=== PATIENT | male | born 1985 | race Caucasian/White ===

== ENCOUNTER 2023-09-18 21:12 | Emergency (ER) | payer OTHER, SELFPAY ==
[2023-09-18] VITALS (7 sets, daily range): BP systolic 112–177; BP diastolic 66–108; PULSE 71–79; RESP 18–30; TEMP 36.4; O2SAT 94–98; BMI 38.1
--- NOTE | 2023-09-18 21:20 | DI.RAD.S_ITS ---
PROCEDURE: XR CHEST 2V INDICATIONS: chest pain TECHNIQUE: 2 views of the chest were acquired. COMPARISON: None. FINDINGS: Surgical changes and devices: None. Lungs and pleura: Lungs are clear. No pleural effusions or pneumothorax. Low lung volumes. Mediastinum: Mediastinal contours are normal. Heart size is normal. Bones and chest wall: No suspicious bony abnormalities. Soft tissues appear unremarkable. IMPRESSION: No acute cardiopulmonary abnormality is seen. Dictated by: Bernarod Nichole M.D. on 09/18/2023 at 21:58 Approved by: Bernardo Nichole M.D. on 09/18/2023 at 21:59
--- NOTE | 2023-09-18 21:31 | EKG_ITS ---
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
[2023-09-18 21:42] LABS: Add Manual Diff / Slide Review NO; Basophils Absolute Auto 100 /uL (0-100); Basophils Percent Auto 1.2 % (0-2); Eosinophils Absolute Auto 100 /uL (0-450); Hematocrit 42.2 % (41-53); Hemoglobin 14.6 g/dL (13.5-17.5); Lymphocytes Absolute Auto 3400 /uL (1100-4500); Lymphocytes Percent Auto 34.5 % (25-40); Mean Corpuscular HGB Conc 34.7 % (30-36); Mean Corpuscular Hemoglobin 29.2 PG (26-34); Monocytes Absolute Auto 500 /uL (0-900); Monocytes Percent Auto 5.2 % (3-14); Neutrophils Absolute Auto 5700 /uL (1500-7000); Neutrophils Percent Auto 58.1 % (50-75); Platelet Count 255 X10^3/uL (150-400); Red Blood Cell Count 5.02 X10^6/uL (4.5-5.9); Red Cell Distribution Width 13.9 % (11.6-14.8); White Blood Cell Count 9.8 X10^3/uL (4.5-11.0)
[2023-09-18 21:46] LABS: INR 0.9 (0.9-1.3); Prothrombin Time 10.8 SECONDS (9.4-12.5)
[2023-09-18 21:49] LABS: PTT Partial Thromboplastin Tim 38 SECONDS (25.1-36.5)
[2023-09-18 21:52] LABS: HEMOLYSIS 20 (0-50); Potassium 3.9 mmol/L (3.4-5.1)
[2023-09-18 21:53] LABS: Alanine Aminotransferase 36 IU/L (<50); Albumin 4.8 g/dL (3.5-5.0); Albumin Globulin Ratio 1.5 (1.0-2.8); Alkaline Phosphatase 79 U/L (38-126); Aspartate Aminotransferase 30 IU/L (17-59); BUN Creatinine Ratio 9.7 (6-22); Bilirubin Total 0.5 mg/dL (0.2-1.3); Blood Urea Nitrogen 9 mg/dL (9-20); Calcium 9.2 mg/dL (8.4-10.2); Carbon Dioxide 23 mmol/L (22-32); Chloride 110 mmol/L (98-107); Creatine Kinase 117 U/L (55-170); Estimated Glomerular Filt Rate > 60 mL/min (>60); Globulin 3.3 g/dL (1.7-4.1); Glucose 97 mg/dL (70-100); Lipase 113 U/L (23-300); Magnesium 2.1 mg/dL (1.6-2.3); Sodium 144 mmol/L (137-145); Total Protein 8.1 g/dL (6.3-8.2)
[2023-09-18 22:04] LABS: NT-proBNP (BNP-Adult 18+) 22 pg/mL (<125); Troponin I < 0.012 ng/mL (0.01-0.034)
--- NOTE | 2023-09-18 23:45 | EKG_ITS ---
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
[2023-09-19] VITALS (18 sets, daily range): BP systolic 109–140; BP diastolic 57–88; PULSE 60–96; RESP 16–35; TEMP 36.8; O2SAT 92–98
[2023-09-19 00:04] LABS: Troponin I < 0.012 ng/mL (0.01-0.034)
--- NOTE | 2023-09-19 02:49 | ED.CHESTPAIN ---
HPI - Chest Pain General Chief Complaint: Chest Pain Stated Complaint: Chest Pain, Palpitations Time Seen by Provider: 09/19/23 02:47 Source: patient, RN notes reviewed and old records reviewed Mode of arrival: Family Vehicle Limitations: no limitations Limitations: no limitations History of Present Illness HPI narrative: 38-year-old male history of GERD with gastritis on upper and lower endoscopy, patient presents with complaint of chest pain that started at noon today has been persistent continuous nothing seems to make it better or worse. He describes it as substernal without any radiation, no shortness of breath unless he gets some bumps or palpitations in his chest. Patient denies any fevers, chills or cold cough or congestion. No nausea or vomiting, no syncope or lightheadedness, patient has not had any swelling in extremities. States had some dark bowel movements, no changes to urination. Patient is on pantoprazole since his upper GI and lower GI scope in April. No other daily prescription medications. He has had prior spinal surgery and cholecystectomy. Allergy to bees but no known drug allergies no tobacco, rare alcohol, no recreational drugs. Mom had rhythm issues and a cardiac stent he is unsure of the age of onset states statin siblings none reported. He has a son who has a bicuspid aorta. Primary care is through the [facility]. Patient notes he has had some palpitations on and off and chest pain on and off in the past and has been set up with a ZIO patch which he just mailed back today. Patient does note he has had travel to [place] in July and on September 07. He does fly for work intermittently sometimes long distance. Related Data Previous Rx's Medication Instructions Recorded hydroxyzine pamoate 25 mg capsule 25 - 50 mg (1 - 2 x 25 mg) PO Q4HP 05/10/17 PRN #60 caps oxycodone 5 mg tablet 5 - 10 mg (1 - 2 x 5 mg) PO Q3HP 05/10/17 PRN #90 tabs Allergies Allergy/AdvReac Type Severity Reaction Status Date / Time bee venom protein (honey bee) Allergy Unknown Unverified 05/17/17 12:39 [BEE VENOM PROTEIN (HONEY BEE)] Review of Systems Review of Systems ROS Unobtainable: All systems reviewed & are unremarkable except as noted in HPI and below Exam Narrative Exam Narrative: GENERAL: Alert and oriented x three, obese male in mild distress HEENT: Head normocephalic, atraumatic, EOMI, pupils reactive, face symmetric, moist mucous membranes NECK: Supple, full range of motion CARDIOVASCULAR: Regular rate and rhythm without murmurs, rubs or gallops. No JVD. No edema bilateral lower extremities. RESPIRATORY: Breath sounds equal bilaterally, no wheezes rales or rhonchi. No tachypnea or accessory muscle use. ABDOMEN: Soft, nontender. Normoactive bowel sounds all 4 quadrants. No guarding or rebound, rigidity, no mass : No CVA tenderness EXTREMITIES: Normal range of motion, no clubbing or edema. Neurovascularly intact NEUROLOGICAL: Cranial nerves II through XII grossly intact. Moving all extremities SKIN: Warm, dry, no petechiae, no rashes or lesions. Initial Vital Signs Initial Vital Signs: Vital Signs Temperature 97.6 F 09/18/23 21:20 Pulse Rate 79 09/18/23 21:20 Respiratory Rate 18 09/18/23 21:20 Blood Pressure 177/108 H 09/18/23 21:20 Pulse Oximetry 98 09/18/23 21:20 Oxygen Delivery Method Room Air 09/18/23 21:20 Scores HEART Score Heart Score history: Moderately Suspicious Heart Score EKG: Non-Specific repolarization disturbance Heart Score Age: < 45 years old Heart Score risk factors: 1-2 risk factors Heart Score troponin: < or = to normal limit Heart Score Total: 3 PERC Score Age greater than or equal to 50 years: No Heart rate greater than or equal to 100 bpm: No Room Air O2 Sat less than 95%: No Unilateral leg swelling: No Recent trauma or surgery: No Hemoptysis: No Prior PE or DVT: No Hormone Use: No Total PERC Score: 0 Course Orders Ordered: ED Orders 09/18/23 21:20 XR chest 2V Stat EKG-12 Lead Stat 09/18/23 21:28 Complete Blood Count AUTO DIFF Stat Comprehensive Metabolic Panel Stat Lipase Stat Magnesium Stat NT-proBNP (BNP-Adult 18+) Stat PTT Partial Thromboplastin Khanh Stat Prothrombin Time INR Stat Troponin & CK Cardiac Panel Stat 09/18/23 23:30 Trop I [Troponin I] Stat 09/18/23 23:36 EKG-12 Lead Stat 09/19/23 03:08 CT angio chest PE protocol Stat Discontinued Medications Aspirin (Aspirin 81 Mg Chew Tab) 324 mg PO NOW ONE Stop: 09/18/23 21:21 Vital Signs Vital signs: Vital Signs - 8 hr 09/18/23 22:48 09/18/23 22:48 09/18/23 23:00 Temperature Pulse Rate 79 Respiratory Rate Blood Pressure 136/74 131/82 Pulse Oximetry 98 97 Oxygen Delivery Method Room Air 09/18/23 23:00 09/18/23 23:20 09/18/23 23:20 Temperature Pulse Rate 78 75 Respiratory Rate 30 H 29 H Blood Pressure 132/78 127/82 Pulse Oximetry 96 96 Oxygen Delivery Method Room Air 09/18/23 23:30 09/18/23 23:32 09/18/23 23:32 Temperature Pulse Rate 72 71 Respiratory Rate 19 28 H Blood Pressure 129/84 Pulse Oximetry 95 96 Oxygen Delivery Method 09/18/23 23:40 09/18/23 23:40 09/19/23 00:00 Temperature Pulse Rate 73 Respiratory Rate 27 H Blood Pressure 112/66 137/88 Pulse Oximetry 94 Oxygen Delivery Method 09/19/23 00:00 09/19/23 00:20 09/19/23 00:20 Temperature Pulse Rate 83 92 H Respiratory Rate 35 H 26 H Blood Pressure 140/83 Pulse Oximetry 92 96 Oxygen Delivery Method 09/19/23 00:30 09/19/23 00:40 09/19/23 00:40 Temperature Pulse Rate 78 77 Respiratory Rate 27 H 25 H Blood Pressure 127/81 Pulse Oximetry 96 94 Oxygen Delivery Method 09/19/23 01:00 09/19/23 01:00 09/19/23 01:20 Temperature Pulse Rate 73 Respiratory Rate 23 Blood Pressure 120/71 109/70 Pulse Oximetry 94 Oxygen Delivery Method 09/19/23 01:20 09/19/23 01:30 09/19/23 01:40 Temperature Pulse Rate 73 96 H 72 Respiratory Rate 26 H 33 H 25 H Blood Pressure Pulse Oximetry 94 95 94 Oxygen Delivery Method 09/19/23 01:40 09/19/23 02:00 09/19/23 02:00 Temperature Pulse Rate 68 Respiratory Rate 23 Blood Pressure 112/70 112/74 Pulse Oximetry 95 Oxygen Delivery Method 09/19/23 02:20 09/19/23 02:20 09/19/23 02:30 Temperature Pulse Rate 77 77 Respiratory Rate 26 H 26 H Blood Pressure 109/62 Pulse Oximetry 92 94 Oxygen Delivery Method 09/19/23 02:40 09/19/23 02:40 09/19/23 03:00 Temperature Pulse Rate 74 77 Respiratory Rate 26 H 24 Blood Pressure 110/57 L Pulse Oximetry 96 97 Oxygen Delivery Method 09/19/23 03:00 09/19/23 03:20 09/19/23 03:20 Temperature Pulse Rate 71 Respiratory Rate 27 H Blood Pressure 115/82 120/80 Pulse Oximetry 94 Oxygen Delivery Method 09/19/23 03:30 09/19/23 04:00 09/19/23 04:30 Temperature Pulse Rate 60 62 Respiratory Rate 22 17 Blood Pressure 120/80 Pulse Oximetry 95 94 94 Oxygen Delivery Method 09/19/23 04:45 Temperature 98.2 F Pulse Rate 85 Respiratory Rate 16 Blood Pressure 135/78 Pulse Oximetry 98 Oxygen Delivery Method Room Air MDM - Chest Pain Lab Data 09/18/23 21:28 09/18/23 21:28 Labs: Lab Results 09/18/23 09/18/23 Range/Units 21:28 23:30 WBC 9.8 (4.5-11.0) X10^3/uL RBC 5.02 (4.5-5.9) X10^6/uL Hgb 14.6 (13.5-17.5) g/dL Hct 42.2 (41-53) % MCV 84.0 (80-100) fL MCH 29.2 (26-34) PG MCHC 34.7 (30-36) % RDW 13.9 (11.6-14.8) % Plt Count 255 (150-400) X10^3/uL Neut % (Auto) 58.1 (50-75) % Lymph % (Auto) 34.5 (25-40) % Collin % (Auto) 5.2 (3-14) % Eos % (Auto) 1.0 L (2-4) % Baso % (Auto) 1.2 (0-2) % Neut # (Auto) 5700 (5379-2221) /uL Lymph # (Auto) 3400 (8720-2858) /uL Collin # (Auto) 500 (0-900) /uL Eos # (Auto) 100 (0-450) /uL Baso # (Auto) 100 (0-100) /uL PT 10.8 (9.4-12.5) SECONDS INR 0.9 (0.9-1.3) APTT 38 H (25.1-36.5) SECONDS Sodium 144 (137-145) mmol/L Potassium 3.9 (3.4-5.1) mmol/L Chloride 110 H (98-107) mmol/L Carbon Dioxide 23 (22-32) mmol/L BUN 9 (9-20) mg/dL Creatinine 0.93 (0.66-1.25) mg/dL Estimated GFR > 60 (>60) mL/min BUN/Creatinine Ratio 9.7 (6-22) Glucose 97 (70-100) mg/dL Calcium 9.2 (8.4-10.2) mg/dL Magnesium 2.1 (1.6-2.3) mg/dL Total Bilirubin 0.5 (0.2-1.3) mg/dL AST 30 (17-59) IU/L ALT 36 (<50) IU/L Alkaline Phosphatase 79 (38-126) U/L Total Creatine Kinase 117 (55-170) U/L Troponin I < 0.012 < 0.012 (0.01-0.034) ng/mL NT-Pro-B Natriuret Pep 22 (<125) pg/mL Total Protein 8.1 (6.3-8.2) g/dL Albumin 4.8 (3.5-5.0) g/dL Globulin 3.3 (1.7-4.1) g/dL Albumin/Globulin Ratio 1.5 (1.0-2.8) Lipase 113 (23-300) U/L Imaging Data Chest x-ray: Radiologist's Impression: Bebeto Givens??38??M??1985 ? Allergy/Adv: bee venom protein (honey bee) (More??) Close Chest X-Ray (Signed) Bernardo Nichole - 09/18/23 Launch?[address] [address] XRay Report Signed Patient: Bebeto Givens MR#: [id number] : 1985 Acct:[id number] Age/Sex: 38 / M Date of Service: 09/18/23 Loc: ED Accession Number: [id number] Procedure: XR chest 2V Ordering Provider: Paulina Nelson D.O. PROCEDURE: XR CHEST 2V INDICATIONS: chest pain TECHNIQUE: 2 views of the chest were acquired. COMPARISON: None. FINDINGS: Surgical changes and devices: None. Lungs and pleura: Lungs are clear. No pleural effusions or pneumothorax. Low lung volumes. Mediastinum: Mediastinal contours are normal. Heart size is normal. Bones and chest wall: No suspicious bony abnormalities. Soft tissues appear unremarkable. IMPRESSION: No acute cardiopulmonary abnormality is seen. Dictated by: Bernardo Nichole M.D. on 09/18/2023 at 21:58 Approved by: Bernardo Nichole M.D. on 09/18/2023 at 21:59 ECG Data Attestation: I personally reviewed and interpreted this ECG as follows: Prior ECG tracings: not available for review Interpretation: Sinus rhythm incomplete right bundle, rate of 79 NC 146 QRS of 106 QTC of 447, no acute ST elevation or depression noted. No priors for comparison EKG shows sinus rhythm incomplete right bundle rate of 70 NC 148 QRS of 108 frequency, acute ST changes or dynamic changes noted. MDM Narrative Medical decision making narrative: 38-year-old male, obese, history of gastritis on pantoprazole, patient has had palpitations on and off for at least several weeks. He does have some history of long distance travel. Initial cardiac workup is negative chest x-ray shows no acute changes incomplete right bundle he notes that at his doctor's visit in July they told him that his heart rate was in the 120s but he was asymptomatic at that time. He does not recall if they told him he would any arrhythmias but told him on his EKG his heart maybe enlarged. Patient has a ZIO patch which just completed and mailed back yesterday. Based on patient's long distance travel discussed D-dimer but he does have some risk factors based on his BMI and travel. After discussion we will obtain CT angio PE protocol. White count of 9.8 hemoglobin of 14.6 platelets of 225, INR 0.9, sodium is 144 potassium 3.9 chloride 110 CO2 is 23 BUN 9 creatinine 0.93, glucose of 97, calcium 9.2 Mag 2.1 bilirubin point, AST of 30 ALT of 36, alk-phos 79 total CK 117 troponin is less than 0.21 with a repeat troponin of less than 0.012. Lipase is 113. Chest x-ray shows no acute change. EKG shows incomplete right bundle, sinus rhythm no acute ST changes no priors for comparison. CT angio PE, subungual timing contrast bolus to evaluate for pulmonary embolus no central segmental pulmonary embolus aortic dissection or aneurysm. No pericardial pleural effusion. Central airways are widely patent. Lung windows demonstrate dependent atelectasis in within the lingula, no nodular infiltrate. Calcified splenic granuloma. Multilevel spondylotic changes of thoracic spine. Discharge Plan Departure Patient Disposition: Home Clinical Impression: Chest pain, Palpitations Activity Restrictions/Additional Instructions: Please follow up with your physician for recheck regarding your ZIO patch results. It is possible you are having cardiac arrhythmias but none were captured today. Please return for recurrent or persistent symptoms, new chest pain or shortness of breath, lightheadedness or passing out, new swelling of your extremities, diaphoresis or sweatiness, persistent nausea or vomiting or other new or concerning changes. Prescriptions: No Action oxycodone 5 MG tablet 5 - 10 mg PO Q3HP PRNQty: 90 0RF hydroxyzine pamoate 25 MG capsule 25 - 50 mg PO Q4HP PRNQty: 60 0RF Stand Alone Forms: Patient Portal/API
--- NOTE | 2023-09-19 03:08 | DI.CT.S_ITS ---
PROCEDURE: CT ANGIO CHEST PE PROTOCOL INDICATIONS: CHEST PAIN TECHNIQUE: After the administration of intravenous contrast, 2 mm thick sections acquired from the pulmonary apices to the posterior costophrenic angles. 3-dimensional maximum intensity projection (MIP) coronal and sagittal reformats were then acquired through the thorax. For radiation dose reduction, the following was used: automated exposure control, adjustment of mA and/or kV according to patient size. COMPARISON: [facility], CR, XR CHEST 2V, 09/18/2023, 21:33. FINDINGS: Image quality: Diagnostic. Pulmonary arteries: Pulmonary arteries are normal in size, and demonstrate no intraluminal filling defects to suggest central pulmonary embolism. Lower Neck: No enlarged lymph nodes. Thyroid: No thyroid nodules which require sonographic follow up, per consensus guidelines. Axillae: No enlarged lymph nodes. Chest Wall: Unremarkable. Bones: Unremarkable. Lungs and Pleura: No pneumothorax or pleural effusions. No consolidation or suspicious nodules. Heart: Heart size is normal. No pericardial effusion. Thoracic Vessels: No aortic aneurysm. Mediastinum and Silvana: No enlarged lymph nodes. Esophagus: No wall thickening. No hiatal hernia. Upper Abdomen: Visualized upper abdomen solid organs and bowel loops appear normal. IMPRESSION: No pulmonary embolus. No acute cardiopulmonary process. Comment: Preliminary interpretation provided by [facility]. On final interpretation, contrast bolus is felt to be adequate for excluding pulmonary emboli. The Dictated by: Castro Ambriz M.D. on 09/19/2023 at 9:04 Approved by: Castro Ambriz M.D. on 09/19/2023 at 9:08
== END 2023-09-19 04:45 | disposition home or self-care (01) ==
PROVIDERS: Emergency Provider Emergency Medicine
DX: R07.9 Chest pain, unspecified (principal); R00.2 Palpitations; E66.9 Obesity, unspecified; Z68.38 Body mass index [BMI] 38.0-38.9, adult
CPT/HCPCS: 36415; 71046; 71275; 80053; 82550; 83690; 83735; 83880; 84484; 85025; 85610; 85730; 93005; 99283; 99284; Q9967

== ENCOUNTER 2023-11-26 18:19 | Inpatient (IN) | payer OTHER, SELFPAY ==
[2023-11-26] VITALS (10 sets, daily range): BP systolic 119–154; BP diastolic 79–92; PULSE 71–93; RESP 17–20; TEMP 36.6–37.4; O2SAT 94–98; BMI 38.7
--- NOTE | 2023-11-26 18:32 | ED_ITS ---
HPI - General Adult General Chief complaint: Abdominal Pain Stated complaint: abd pain, hot flashes, hx of diverticulitis Time Seen by Provider: 11/26/23 18:26 Source: patient Mode of arrival: Ambulatory Limitations: no limitations History of Present Illness HPI narrative: Patient is a 38-year-old male. Is currently on Cipro for prostatitis. He also has a history of diverticulitis. Has had his gallbladder removed. Is here for evaluation approximately 48 hours of generalized abdominal discomfort. No vomiting. Has felt feverish at home. States that he feels like he needs to have a bowel movement but is unable to do so. No urinary symptoms. He states this feels different than his prior history of diverticulitis. States the pain is generalized abdomen. Related Data Home Medications Medication Instructions Recorded Confirmed ciprofloxacin HCl 500 mg tablet 500 mg PO BID 11/26/23 11/26/23 flurbiprofen 100 mg tablet 100 mg PO BID 11/26/23 11/26/23 pantoprazole 40 mg tablet,delayed 40 mg PO DAILY 11/26/23 11/26/23 release Allergies Allergy/AdvReac Type Severity Reaction Status Date / Time bee venom protein (honey bee) Allergy Unknown Verified 11/26/23 18:37 [BEE VENOM PROTEIN (HONEY BEE)] Review of Systems Review of Systems ROS Unobtainable: All systems reviewed & are unremarkable except as noted in HPI and below Patient History Social History Smoking Status: Never smoker Exam Initial Vital Signs Initial Vital Signs: Vital Signs Pulse Rate 92 H 11/26/23 18:24 Blood Pressure 142/86 H 11/26/23 18:24 Pulse Oximetry 97 11/26/23 18:24 Const General: cooperative, comfortable and No ill appearing [facility] Head: normal to inspection and normocephalic Resp Effort & Inspection: normal respiratory effort Auscultation: clear to auscultation bilaterally Cardio Rate: regular rate Rhythm: regular rhythm GI Inspection: normal to inspection and non-distended Palpation: soft, No firm, No guarding, No rigid and tender (Diffusely tender) Skin General: no rashes or lesions noted Neuro General: patient alert, patient awake and moves all extremities Extrem General: capillary refill normal Course Orders Ordered: ED Orders 11/26/23 18:28 Complete Blood Count AUTO DIFF Stat Comprehensive Metabolic Panel Stat Lactate (Lactic Acid) Stat Lipase Stat 11/26/23 18:33 CT abdomen pelvis w con Stat 11/26/23 19:31 Consult to General Surgery Stat 11/26/23 19:42 Blood Culture Stat Sodium Chloride (Normal Saline 0.9%) 1,000 mls @ 125 mls/hr IV CONT LUIZ Last Admin: 11/26/23 19:40 Dose: 125 mls/hr Documented By: MAX Metronidazole (Flagyl) 500 mg in 100 mls @ 100 mls/hr IV NOW ONE Stop: 11/26/23 20:23 Discontinued Medications Piperacillin Sod/Tazobactam (Sod 4.5 gm/ Sodium Chloride) 100 mls @ 200 mls/hr IV NOW ONE Stop: 11/26/23 19:25 Last Admin: 11/26/23 19:41 Dose: 200 mls/hr Documented By: MAX Vital Signs Vital signs: Vital Signs - 8 hr 11/26/23 18:24 11/26/23 18:24 11/26/23 18:30 Temperature Pulse Rate 92 H 91 H Respiratory Rate Blood Pressure 142/86 H Pulse Oximetry 97 98 Oxygen Delivery Method 11/26/23 18:31 11/26/23 19:00 11/26/23 19:30 Temperature 99.4 F Pulse Rate 88 79 93 H Respiratory Rate 17 Blood Pressure 142/84 H Pulse Oximetry 98 96 94 Oxygen Delivery Method Room Air 11/26/23 19:31 11/26/23 19:31 Temperature Pulse Rate 87 Respiratory Rate Blood Pressure 154/92 H Pulse Oximetry 97 Oxygen Delivery Method Medical Decision Making Medical Records Medical records reviewed: Yes I reviewed the patient's medical records. Lab Data Lab results reviewed: Yes I reviewed the patient's lab results. 11/26/23 18:28 11/26/23 18:28 Labs: Lab Results 11/26/23 Range/Units 18:28 WBC 13.9 H (4.5-11.0) X10^3/uL RBC 5.08 (4.5-5.9) X10^6/uL Hgb 14.4 (13.5-17.5) g/dL Hct 42.1 (41-53) % MCV 82.9 (80-100) fL MCH 28.3 (26-34) PG MCHC 34.1 (30-36) % RDW 13.9 (11.6-14.8) % Plt Count 267 (150-400) X10^3/uL Neut % (Auto) 72.1 (50-75) % Lymph % (Auto) 22.5 L (25-40) % [place] % (Auto) 4.6 (3-14) % Eos % (Auto) 0.4 L (2-4) % Baso % (Auto) 0.4 (0-2) % Neut # (Auto) 31465 H (9693-5406) /uL Lymph # (Auto) 3100 (1430-1500) /uL [place] # (Auto) 600 (0-900) /uL Eos # (Auto) 100 (0-450) /uL Baso # (Auto) 100 (0-100) /uL Sodium 140 (137-145) mmol/L Potassium 4.1 (3.4-5.1) mmol/L Chloride 105 (98-107) mmol/L Carbon Dioxide 23 (22-32) mmol/L BUN 9 (9-20) mg/dL Creatinine 1.08 (0.66-1.25) mg/dL Estimated GFR > 60 (>60) mL/min BUN/Creatinine Ratio 8.3 (6-22) Glucose 108 H (70-100) mg/dL Lactate 1.1 (0.7-2.1) mmol/L Calcium 9.2 (8.4-10.2) mg/dL Total Bilirubin 1.0 (0.2-1.3) mg/dL AST 28 (17-59) IU/L ALT 32 (<50) IU/L Alkaline Phosphatase 76 (38-126) U/L Total Protein 8.4 H (6.3-8.2) g/dL Albumin 4.6 (3.5-5.0) g/dL Globulin 3.8 (1.7-4.1) g/dL Albumin/Globulin Ratio 1.2 (1.0-2.8) Lipase 50 (23-300) U/L Imaging Data CT scan - abdomen/pelvis: Radiologist's Impression: PROCEDURE: CT ABDOMEN PELVIS W CON INDICATIONS: Generalized abdominal pain TECHNIQUE: After the administration of intravenous contrast, axial sections acquired from the lung bases to the pubic symphysis. Coronal and sagittal reformats were performed. For radiation dose reduction, the following was used: automated exposure control, adjustment of mA and/or kV according to patient size. COMPARISON: None. FINDINGS: Image quality: Diagnostic. Lower Chest: No significant findings. ABDOMEN: Liver: No solid mass. Gallbladder: The appendix is not visualized and presumably surgically absent. Biliary ducts: No biliary dilation. Pancreas: No ductal dilation. No peripancreatic inflammation. Spleen: Size is within normal limits. Adrenal Glands: No adrenal nodules. Kidneys and Ureters: No hydronephrosis. No solid mass. No complex renal cystic lesion which requires follow up. Stomach and Bowel: Colonic diverticulosis. Acute diverticulitis involving the proximal sigmoid colon. There are numerous locules of extraluminal free air as well as free air scattered throughout the abdomen. Moderate inflammatory changes noted over the mesenteric side of the proximal sigmoid colon, a short distance cephalad to epicenter of diverticular inflammation. There is adjacent inflammatory changes of a loop of nondilated small bowel. No evidence for organized fluid collection. No evidence for small bowel obstruction . The appendix is not definitively visualized. However, no secondary findings of acute inflammation are noted in the right lower quadrant. Peritoneum: No abnormal intraperitoneal fluid. Ventral Wall: No significant ventral hernia. Abdominal Nodes: No retroperitoneal or mesenteric adenopathy by size criteria. Vessels: Aorta and inferior vena cava are normal in size. PELVIS: Pelvic Organs: Unremarkable. Bladder: No bladder wall thickening, accounting for underdistention. Pelvic Nodes: No enlarged lymph nodes. Miscellaneous: No inguinal hernias are seen. Bones: No aggressive osseous abnormality. Postsurgical changes of spinal fusion of L4 through S1. No acute compression fractures. IMPRESSION: Moderate scattered colonic diverticulosis with moderate acute diverticulitis involving segment of proximal sigmoid colon with associated noncontained perforation. Moderate focus of free air noted superior and medial along the mesenteric side of the proximal sigmoid colon and associated inflammation. No evidence for organized/rim enhancing fluid collection. Numerous locules of free air noted throughout the abdomen. There is a mildly inflamed segment of small bowel in close proximity to perforated sigmoid colon. No evidence for small bowel obstruction. Other chronic findings as above. Findings were discussed with Dr. Ledezma at 1920 hrs. [facility] Narrative Medical decision making narrative: He does not have a surgical abdomen. Does have a leukocytosis. He states that when he was lying in bed without any when touching his abdomen or moving around his pain is relatively well controlled. CT scan shows concerns for perforated diverticulitis without signs of abscess. I did discuss the case with on-call for General surgery who will admit for further evaluation and treatment. Blood cultures obtained. Antibiotics administered. Patient was made NPO. Maintenance fluids started. Discussed the need for admission with the patient. He expressed understanding and agreement. Discharge Plan Departure Patient Disposition: Admitted As Inpatient Clinical Impression: Diverticulitis of colon with perforation Admit Date/Time: 11/26/23 19:31 Admit Provider: Ana Mtz
[2023-11-26 18:37] LABS: Add Manual Diff / Slide Review NO; Basophils Absolute Auto 100 /uL (0-100); Basophils Percent Auto 0.4 % (0-2); Eosinophils Absolute Auto 100 /uL (0-450); Eosinophils Percent Auto 0.4 % (2-4); Hematocrit 42.1 % (41-53); Hemoglobin 14.4 g/dL (13.5-17.5); Lymphocytes Absolute Auto 3100 /uL (1100-4500); Lymphocytes Percent Auto 22.5 % (25-40); Mean Corpuscular HGB Conc 34.1 % (30-36); Mean Corpuscular Hemoglobin 28.3 PG (26-34); Mean Corpuscular Volume 82.9 fL (80-100); Monocytes Absolute Auto 600 /uL (0-900); Monocytes Percent Auto 4.6 % (3-14); Neutrophils Absolute Auto 10000 /uL (1500-7000); Neutrophils Percent Auto 72.1 % (50-75); Platelet Count 267 X10^3/uL (150-400); Red Blood Cell Count 5.08 X10^6/uL (4.5-5.9); Red Cell Distribution Width 13.9 % (11.6-14.8); White Blood Cell Count 13.9 X10^3/uL (4.5-11.0)
[2023-11-26 18:46] LABS: Alanine Aminotransferase 32 IU/L (<50); Albumin 4.6 g/dL (3.5-5.0); Albumin Globulin Ratio 1.2 (1.0-2.8); Alkaline Phosphatase 76 U/L (38-126); Aspartate Aminotransferase 28 IU/L (17-59); BUN Creatinine Ratio 8.3 (6-22); Blood Urea Nitrogen 9 mg/dL (9-20); Calcium 9.2 mg/dL (8.4-10.2); Carbon Dioxide 23 mmol/L (22-32); Chloride 105 mmol/L (98-107); Estimated Glomerular Filt Rate > 60 mL/min (>60); Globulin 3.8 g/dL (1.7-4.1); Glucose 108 mg/dL (70-100); HEMOLYSIS < 15 (0-50); Lipase 50 U/L (23-300); Potassium 4.1 mmol/L (3.4-5.1); Sodium 140 mmol/L (137-145); Total Protein 8.4 g/dL (6.3-8.2)
[2023-11-26 19:36] LABS: Lactate (Lactic Acid) 1.1 mmol/L (0.7-2.1)
[2023-11-26] MEDS: SODIUM CHLORIDE 0.9% 1,000 ML 125 ML IV (19:40)
[2023-11-26] MEDS: PIPERACILLIN/TAZO 4.5 GM in SODIUM CHLORIDE 0.9% 100 ML IV (19:41)
[2023-11-26] MEDS: metroNIDAZOLE 500 MG/100 ML PIGGYBACK 100 MG IV (20:17)
[2023-11-26] MEDS: HYDROMORPHONE 0.5 MG INJ IV ×2 (21:09→23:48)
--- NOTE | 2023-11-27 00:35 | PC.NURSE ---
NOC: Alerted via cont SpO2 monitoring to desaturation down to 88%, difficulty rousing patient. Applied 1L NC, SpO2 improved to 93%. Care continues.
[2023-11-27 02:00] VITALS: BP 111/74; PULSE 76; RESP 20; TEMP 36.4; O2SAT 96
[2023-11-27] MEDS: HYDROMORPHONE 0.5 MG INJ IV ×6 (02:36→22:33)
[2023-11-27] MEDS: SODIUM CHLORIDE 0.9% 1,000 ML 125 ML IV ×3 (03:41→22:28)
[2023-11-27 08:22] VITALS: BP 116/73; PULSE 80; RESP 19; TEMP 36.4; O2SAT 96
--- NOTE | 2023-11-27 09:28 | PC.NURSE ---
Addendum entered by Marcie Ag R.N. 11/27/23 10:14: IV antibiotic started and patient is resting comfortably. He denies pain or discomfort. Original Note: Patient complained of abdominal pain at 7/10, given 0.5mg of iv dilaudid and helpful. Bt are hypoactive x4. He is going to be getting iv antibiotics.
--- NOTE | 2023-11-27 09:32 | PM.HP.1 ---
History of Present Illness History of Present Illness Date Patient Seen: 11/27/23 Time Patient Seen: 09:32 Chief complaint: abd pain, hot flashes, hx of diverticulitis PFSH Social History household members: spouse and children Smoking Status: Never smoker Comment: Jad chang is his ONLY abdominal surgery Meds Home Medications and Allergies Home Medications Medication Instructions Recorded Confirmed Type ciprofloxacin HCl 500 mg tablet 500 mg PO BID 11/26/23 11/26/23 History flurbiprofen 100 mg tablet 100 mg PO BID 11/26/23 11/26/23 History pantoprazole 40 mg tablet,delayed 40 mg PO DAILY 11/26/23 11/26/23 History release Allergies Allergy/AdvReac Type Severity Reaction Status Date / Time bee venom protein (honey bee) Allergy Unknown Verified 11/26/23 18:37 [BEE VENOM PROTEIN (HONEY BEE)] Review of Systems Review of Systems ROS: Yes All systems reviewed with the patient and are negative except as otherwise documented Exam Vital Signs (past 8 hours): - 11/27/23 02:00 11/27/23 08:22 Temperature 97.6 F 97.6 F Pulse Rate 76 80 Respiratory Rate 20 19 Blood Pressure 111/74 116/73 Pulse Oximetry 96 96 Oxygen Flow Rate 0 0 Oxygen Delivery Method Room Air Oxygen Flow Rate 0 Narrative Exam Narrative: Tender abdomen, all over, BUT NO peritoneal signs Objective Labs 11/26/23 18:28 11/26/23 18:28 Labs: Laboratory Results - last 24 hr 11/26/23 18:28 WBC 13.9 H RBC 5.08 Hgb 14.4 Hct 42.1 MCV 82.9 MCH 28.3 MCHC 34.1 RDW 13.9 Plt Count 267 Neut % (Auto) 72.1 Lymph % (Auto) 22.5 L [place] % (Auto) 4.6 Eos % (Auto) 0.4 L Baso % (Auto) 0.4 Neut # (Auto) 18316 H Lymph # (Auto) 3100 [place] # (Auto) 600 Eos # (Auto) 100 Baso # (Auto) 100 Sodium 140 Potassium 4.1 Chloride 105 Carbon Dioxide 23 BUN 9 Creatinine 1.08 Estimated GFR > 60 BUN/Creatinine Ratio 8.3 Glucose 108 H Lactate 1.1 Calcium 9.2 Total Bilirubin 1.0 AST 28 ALT 32 Alkaline Phosphatase 76 Total Protein 8.4 H Albumin 4.6 Globulin 3.8 Albumin/Globulin Ratio 1.2 Lipase 50 Assessment & Plan Assessment and plan (1) Diverticulitis of colon with perforation: Problem details: Acute RECURRENT perforated diverticulitis, CONTINUE NPO / IVF / IV Abx / Repeat CBC, and WHEN improves will switch to PO antibiotics x 2 wks and feed him and in 6-8 WEEKS, HE NEEDS laparoscopic Sigmoidectomy. Status: Acute Time-Based Coding :: [TOTAL MINUTES] spent with patient and on the chart (including review of chart, obtaining history, exam, reviewing outside data, placing orders, documenting exam and treatment plan, and counseling patient) on [DATE]. Quality VTE Deep Vein Thrombosis/Pulmonary Embolism Present on Admission: No
[2023-11-27 09:41] LABS: Hematocrit 39.6 % (41-53); Hemoglobin 13.2 g/dL (13.5-17.5); Mean Corpuscular HGB Conc 33.4 % (30-36); Mean Corpuscular Volume 83.7 fL (80-100); Platelet Count 243 X10^3/uL (150-400); Red Blood Cell Count 4.74 X10^6/uL (4.5-5.9); White Blood Cell Count 8.7 X10^3/uL (4.5-11.0)
[2023-11-27 09:52] LABS: BUN Creatinine Ratio 6.8 (6-22); Blood Urea Nitrogen 8 mg/dL (9-20); Calcium 8.6 mg/dL (8.4-10.2); Carbon Dioxide 25 mmol/L (22-32); Chloride 109 mmol/L (98-107); Estimated Glomerular Filt Rate > 60 mL/min (>60); Glucose 92 mg/dL (70-100); HEMOLYSIS < 15 (0-50); Potassium 4.1 mmol/L (3.4-5.1); Sodium 140 mmol/L (137-145)
[2023-11-27] MEDS: metroNIDAZOLE 500 MG/100 ML PIGGYBACK 100 MG IV ×3 (10:05→22:27)
--- NOTE | 2023-11-27 10:26 | P.OP.EGD_ITS ---
Operative Date/Time/Diagnoses Date of procedure: 11/27/23 Time of procedure: 10:26 Pre-op diagnosis: Positive Guaic stools Post-op diagnosis: same Procedure Notes Procedure in detail: BRIEF OPERATIVE / PROCEDURE NOTE Bebeto Givens, 1985, 38,Male,CSN: [id number] 11/27/23 PRE-OP DIAGNOSIS: Anemia, and Positive Guaic stools, r/o GI bleed. POST-OP DIAGNOSIS: Same + Per the EGD performed all the way to the 3rd portion of the duodenum: - Z-line was @ 42 cm from the superior incisors' level - No GERD stigmata noted, no obvious Hiatal Hernia, no changes suspicious Montaño's - Mild distal gastritis - No peptic ulcer disease - No biliary reflux PROCEDURE(S): - EGD to the 3rd portion of the duodenum SURGEON(S): Ana Mtz M.D., F.A.C.S., F.I.C.S. ENVIRONMENTAL ASSISTANT(S): NONE ANESTHESIA: MAC per Anaesthesia. SPECIMENS: None ESTIMATED BLOOD LOSS: None COMPLICATIONS: NONE CONDITION / DISPOSITION: Stable, to PACU OPERATIVE DESCRIPTION: After properly informed consent was signed by the patient, knowing all the risks, benefits, potential complications and possible alternatives of the procedure. The patient was properly identified. Bebeto Givens was brought to the GI suite and after institution of general IV sedation in reverse Trendelenburg position, in the left lateral decubitus position, the EGD Olympus scope was placed into his mouth and under direct visualization was advanced. No reflux or laryngitis stigmata noted. The esophagus was intubated. The Z-line was noted to be at 42 cm from the superior incisor level. No GERD stigmata noted. No hiatal hernia was identified. No changes suspicious for Montaño esophagitis. The stomach was intubated. Mild gastritis was noted and no ulcers noted. No significant gastritis noted. No tumors, no growths, no peptic ulcer disease. The pylorus was intubated and the scope was advanced all the way to the third portion of the duodenum. No postpyloric abnormalities identified, including the ampulla and periampullary regions. The scope was retracted back into the stomach, retroflexed; no hiatal hernia was identified. Documentary pictures of all the above and below relevant findings were taken. Colonoscopy next was done. Findings: gastritis Specimen(s): none sent Complications: none Post-procedure Follow up: as needed Disposition: Acute Care
--- NOTE | 2023-11-27 10:31 | PM.OP.COLON ---
Operative Date/Time/Diagnoses Date of procedure: 11/27/23 Time of procedure: 10:31 Pre-op diagnosis: Anemia positive Guaic stools. Post-op diagnosis: same Procedure & Clinicians Surgeon: Ana Mtz Post-procedure Recommendations: Colonoscopy in 10 years Follow up: as needed Disposition: Acute Care
[2023-11-27] MEDS: PIPERACILLIN/TAZO 3.375 GM in SODIUM CHLORIDE 0.9% 100 ML IV ×2 (11:38→19:56)
[2023-11-27] MEDS: FERROUS SULFATE 325 MG TABLET PO (11:38)
--- NOTE | 2023-11-27 15:33 | CM.DANOTE ---
Patient is a 38 yo male who was admitted on 11/26/23 for Diverticulitis with possible Perf. Pt has [employer] for insurance and his PCP is at the [facility]. EMR was reviewed. Per MD, pt with hx of prostatitis and diverticulitis and has hx of gallbladder removal and per imaging likely diverticulitis with perf and awaiting Surgeon Consult. Per Surgeon, scopes completed and shows gastritis and to continue treating conservatively at this time. Per Rn, pt has been independent in room and no concerns noted so far. SW met briefly bedside with pt and explained role and he confirms he lives at home in [place] with his spouse and kids and is active and independent at baseline and with the [facility]. Pt states his preference is to discharge home when medically stable and spouse likely can transport and he does not anticipate any needs at discharge. Plan: SW to follow closely for pt's progress with pain management and advancing diet and to confirm safe d/c home and no further identified discharge planning needs. MANDIE Santamaria Discharge Planning/Care Management CM Discharge Assessment Start: 11/27/23 15:32 Freq: Status: Active Protocol: Document 11/27/23 15:32 BF (Rec: 11/27/23 15:33 BF [id number]) Discharge Planning Assessment Assigned [employer] MANDIE Elizondo Advance Directives? No Advance Directives on File No History Provided By Patient,Medical Record Has Patient been admitted in last 30 No days? Prior Living Arrangements House Household Members spouse,children Type of transporation used prior to Drives own vehicle admit Independent with ADL's Yes Is patient alert and oriented? Yes Caregiver for Another Yes: children Barriers to Discharge No Discharge Plan Home Transportation Arrangement Likely spouse to transport Referrals Initiated None needed Whiteboard Updated in Patient Room with Yes name and ext. # of [employer] Review Status In Process Please Provide Date Initial DC 11/27/23 Assessment Was Performed Next Review Type Continued Stay Review
[2023-11-27 19:38] VITALS: BP 124/82; PULSE 74; RESP 18; TEMP 36.6; O2SAT 96
[2023-11-28 00:57] VITALS: O2SAT 89
[2023-11-28 01:00] VITALS: BP 108/67; PULSE 74; RESP 18; TEMP 36.6; O2SAT 94
[2023-11-28] MEDS: metroNIDAZOLE 500 MG/100 ML PIGGYBACK 100 MG IV ×4 (03:27→23:58)
[2023-11-28] MEDS: PIPERACILLIN/TAZO 3.375 GM in SODIUM CHLORIDE 0.9% 100 ML IV ×3 (04:46→19:49)
[2023-11-28] MEDS: HYDROMORPHONE 0.5 MG INJ IV ×3 (04:48→16:58)
[2023-11-28 06:18] LABS: Hematocrit 36.4 % (41-53); Hemoglobin 12.3 g/dL (13.5-17.5); Mean Corpuscular HGB Conc 33.8 % (30-36); Mean Corpuscular Hemoglobin 28.1 PG (26-34); Mean Corpuscular Volume 83.2 fL (80-100); Platelet Count 235 X10^3/uL (150-400); Red Blood Cell Count 4.38 X10^6/uL (4.5-5.9); Red Cell Distribution Width 13.6 % (11.6-14.8); White Blood Cell Count 7.4 X10^3/uL (4.5-11.0)
[2023-11-28 06:45] LABS: BUN Creatinine Ratio 9.7 (6-22); Blood Urea Nitrogen 10 mg/dL (9-20); Calcium 8.7 mg/dL (8.4-10.2); Carbon Dioxide 23 mmol/L (22-32); Chloride 110 mmol/L (98-107); Estimated Glomerular Filt Rate > 60 mL/min (>60); Glucose 83 mg/dL (70-100); HEMOLYSIS < 15 (0-50); Potassium 4.3 mmol/L (3.4-5.1); Sodium 139 mmol/L (137-145)
[2023-11-28 08:00] VITALS: BP 108/76; PULSE 65; RESP 16; TEMP 36.4; O2SAT 94
--- NOTE | 2023-11-28 08:31 | PM.PN.1 ---
Subjective Subjective Date Patient Seen: 11/28/23 Time Patient Seen: 08:31 Exam Vital Signs (past 8 hours): - 11/28/23 00:57 11/28/23 01:00 Temperature 97.9 F Pulse Rate 74 Respiratory Rate 18 Blood Pressure 108/67 Pulse Oximetry 89 L 94 Oxygen Delivery Method Nasal Cannula Oxygen Flow Rate 1 0 Oxygen Delivery Method Nasal Cannula Oxygen Flow Rate 0 Pain MUCH better today but bridge tender LLQ, will allow him Ice ships today, and give him Tylenol for his headache, and tomorrow will advance his diet to full liquids and then low residue normal diet x6-8 wks, and then NEEDS sigmoid colectomy, in 6-8 wks. Objective Labs 11/28/23 05:39 11/28/23 05:39 Labs: Laboratory Results - last 24 hr 11/27/23 11/28/23 09:29 05:39 WBC 8.7 7.4 RBC 4.74 4.38 L Hgb 13.2 L 12.3 L Hct 39.6 L 36.4 L MCV 83.7 83.2 MCH 28.0 28.1 MCHC 33.4 33.8 RDW 14.0 13.6 Plt Count 243 235 Sodium 140 139 Potassium 4.1 4.3 Chloride 109 H 110 H Carbon Dioxide 25 23 BUN 8 L 10 Creatinine 1.17 1.03 Estimated GFR > 60 > 60 BUN/Creatinine Ratio 6.8 9.7 Glucose 92 83 Calcium 8.6 8.7 PFSH Social History household members: spouse and children Smoking Status: Never smoker Assessment & Plan Assessment and plan (1) Diverticulitis of colon with perforation: Problem details: Pain MUCH better today but bridge tender LLQ, will allow him Ice ships today, and give him Tylenol for his headache, and tomorrow will advance his diet to full liquids and then low residue normal diet x6-8 wks, and then NEEDS sigmoid colectomy, in 6-8 wks. Status: Acute Time-Based Coding :: [TOTAL MINUTES] spent with patient and on the chart (including review of chart, obtaining history, exam, reviewing outside data, placing orders, documenting exam and treatment plan, and counseling patient) on [DATE]. Quality VTE Deep Vein Thrombosis/Pulmonary Embolism Present on Admission: No
[2023-11-28] MEDS: ACETAMINOPHEN 325 MG TABLET 650 MG PO ×3 (09:04→23:56)
--- NOTE | 2023-11-28 11:10 | DIET.CONS ---
Dietary Consultation Note Admission Date: 11/26/2023 19:31 Assessment: 38 y M admitted for diverticulitis of colon with perforation. RD consulted for pt has questions r/t diverticulitis diet. Met w/ pt at bedside. Answered questions, provided educ and resources regarding low fiber diet and then transition to including fiber back into diet when diverticulitis has resolved/post-op and as directed by surgeon. Pt reports normal po intakes and normal appetite before admission with no weight loss. Ht: 185.42 cm Wt: 133.356 kg BMI: 38.7 UBW: 134.717 kg 09/18/23 per EMR Last BM: 11/26/23 (11/26/23 19:38) MNA: 12 Pedro Score: 20 Diet: 11/27/23 12:02 NPO Diet Diet Modifications: npo NPO Type: Strict 11/28/23 23:59 NPO Diet Diet Modifications: May Advance Diet as Tolerated: No Safety Tray needed?: No NPO Type: NPO except for Ice Chips Labs: RBC 4.38 X10^6/uL (4.5-5.9) L 11/28/23 05:39 Hgb 12.3 g/dL (13.5-17.5) L 11/28/23 05:39 Hct 36.4 % (41-53) L 11/28/23 05:39 Creatinine 1.03 mg/dL (0.66-1.25) 11/28/23 05:39 Lactate 1.1 mmol/L (0.7-2.1) 11/26/23 18:28 Nutrition Diagnosis: Nutrition related knowledge deficit r/t limited previous educ on topic aeb pt's questions regarding most appropriate diet w/ diverticulitis Interventions: 1. Provided educ and handout on low fiber diet 2. Will monitor for when diet is advanced EER: 8-13 g fiber during diverticulitis when diet is advanced to regular Monitoring/Evaluations: diet advancement per surgery Electronically Signed by: Sienna Escobar 11/28/23 11:10 Clinical Dietitian [address] [address]
--- NOTE | 2023-11-28 13:00 | CM.DPC ---
DCP Cont. Reviewed EMR and team rounds for status updates. Per Surgeon, pt is being started on ice chips today, will advance diet tomorrow. He will need an OP sigmoid colectomy in 6-8 weeks. Monitoring for additional d/c assistance/resource needs.
[2023-11-28 18:00] VITALS: BP 123/67; PULSE 70; TEMP 36.4; O2SAT 96
[2023-11-28 20:00] VITALS: BP 115/75; PULSE 60; RESP 16; TEMP 36.3; O2SAT 97
[2023-11-29] VITALS: BP 120/76; PULSE 66; RESP 16; TEMP 36.4; O2SAT 95
[2023-11-29] MEDS: SODIUM CHLORIDE 0.9% 1,000 ML 125 ML IV ×3 (00:18→21:59)
[2023-11-29] MEDS: LORazepam 2 MG/ML INJ 1 MG IV (00:58)
[2023-11-29] MEDS: ONDANSETRON 4 MG/2 ML INJ IV (00:58)
[2023-11-29] MEDS: PIPERACILLIN/TAZO 3.375 GM in SODIUM CHLORIDE 0.9% 100 ML IV ×2 (03:35→11:32)
[2023-11-29] MEDS: metroNIDAZOLE 500 MG/100 ML PIGGYBACK 100 MG IV ×4 (04:36→21:59)
[2023-11-29 06:11] VITALS: BP 115/71; PULSE 62; RESP 16; TEMP 36.2; O2SAT 97
[2023-11-29] MEDS: ACETAMINOPHEN 325 MG TABLET 650 MG PO (06:14)
[2023-11-29] MEDS: HYDROMORPHONE 0.5 MG INJ IV ×4 (07:57→20:50)
[2023-11-29 08:00] VITALS: BP 125/71; PULSE 70; RESP 16; TEMP 36.5; O2SAT 94
--- NOTE | 2023-11-29 08:47 | PM.PN.1 ---
Subjective Subjective Date Patient Seen: 11/29/23 Time Patient Seen: 08:48 Exam Vital Signs (past 8 hours): - 11/29/23 06:11 11/29/23 08:00 Temperature 97.2 F L 96.7 F L Pulse Rate 62 116 H Respiratory Rate 16 18 Blood Pressure 115/71 119/72 Pulse Oximetry 97 92 Oxygen Flow Rate 2 Oxygen Delivery Method Nasal Cannula Oxygen Flow Rate 2 Objective Labs 11/28/23 05:39 11/28/23 05:39 PFSH Social History household members: spouse and children Smoking Status: Never smoker Assessment & Plan Assessment and plan (1) Diverticulitis of colon with perforation: Problem details: Pain MUCH better today; will advance his diet to full liquids and then low residue normal diet tomorrow, x6-8 wks, and then NEEDS sigmoid colectomy, in 6-8 wks. Status: Acute Time-Based Coding :: [TOTAL MINUTES] spent with patient and on the chart (including review of chart, obtaining history, exam, reviewing outside data, placing orders, documenting exam and treatment plan, and counseling patient) on [DATE]. Quality VTE Deep Vein Thrombosis/Pulmonary Embolism Present on Admission: No
[2023-11-29 09:09] LABS: Hematocrit 39.3 % (41-53); Hemoglobin 13.2 g/dL (13.5-17.5); Mean Corpuscular HGB Conc 33.6 % (30-36); Mean Corpuscular Hemoglobin 27.8 PG (26-34); Mean Corpuscular Volume 82.9 fL (80-100); Platelet Count 265 X10^3/uL (150-400); Red Blood Cell Count 4.74 X10^6/uL (4.5-5.9); Red Cell Distribution Width 13.5 % (11.6-14.8); White Blood Cell Count 7.5 X10^3/uL (4.5-11.0)
[2023-11-29 09:22] LABS: BUN Creatinine Ratio 9.9 (6-22); Blood Urea Nitrogen 9 mg/dL (9-20); Calcium 8.9 mg/dL (8.4-10.2); Carbon Dioxide 21 mmol/L (22-32); Chloride 108 mmol/L (98-107); Estimated Glomerular Filt Rate > 60 mL/min (>60); Glucose 77 mg/dL (70-100); HEMOLYSIS < 15 (0-50); Potassium 4.3 mmol/L (3.4-5.1); Sodium 138 mmol/L (137-145)
[2023-11-29 12:00] VITALS: BP 130/90; PULSE 69; RESP 16; TEMP 36.2; O2SAT 94
--- NOTE | 2023-11-29 13:23 | CM.DPC ---
DCP Cont. Reviewed EMR and team rounds for status updates. Per Surgeon, pt will advance to full liquid diet today, followed to progression to full diet tomorrow, then d/c home w/family. Monitoring for any additional evolving needs.
[2023-11-29] MEDS: CIPROFLOXACIN 400 MG/200 ML PIGGYBACK 200 MG IV (17:51)
[2023-11-29 18:00] VITALS: BP 102/69; PULSE 78; RESP 16; TEMP 37; O2SAT 95
[2023-11-29 19:42] VITALS: BP 117/73; PULSE 71; RESP 18; TEMP 36.8; O2SAT 95
[2023-11-30] MEDS: ONDANSETRON 4 MG/2 ML INJ IV (00:52)
[2023-11-30] MEDS: HYDROMORPHONE 0.5 MG INJ IV (00:57)
[2023-11-30 01:32] VITALS: BP 119/80; PULSE 74; RESP 17; TEMP 36.8; O2SAT 97
[2023-11-30] MEDS: metroNIDAZOLE 500 MG/100 ML PIGGYBACK 100 MG IV (04:08)
[2023-11-30] MEDS: CIPROFLOXACIN 400 MG/200 ML PIGGYBACK 200 MG IV (05:34)
[2023-11-30 06:18] LABS: Hematocrit 37.7 % (41-53); Hemoglobin 12.6 g/dL (13.5-17.5); Mean Corpuscular HGB Conc 33.3 % (30-36); Mean Corpuscular Hemoglobin 27.8 PG (26-34); Mean Corpuscular Volume 83.3 fL (80-100); Platelet Count 251 X10^3/uL (150-400); Red Blood Cell Count 4.52 X10^6/uL (4.5-5.9); White Blood Cell Count 7.5 X10^3/uL (4.5-11.0)
[2023-11-30 06:30] LABS: BUN Creatinine Ratio 6.1 (6-22); Blood Urea Nitrogen 6 mg/dL (9-20); Calcium 8.6 mg/dL (8.4-10.2); Carbon Dioxide 24 mmol/L (22-32); Chloride 108 mmol/L (98-107); Estimated Glomerular Filt Rate > 60 mL/min (>60); Glucose 86 mg/dL (70-100); HEMOLYSIS < 15 (0-50); Potassium 3.9 mmol/L (3.4-5.1); Sodium 139 mmol/L (137-145)
[2023-11-30 08:44] VITALS: BP 104/70; PULSE 60; RESP 16; TEMP 36.2; O2SAT 97
--- NOTE | 2023-11-30 10:47 | DIET.PN1 ---
Dietary Progress Note Assessment: Pt reports tolerating breakfast tray this morning. DFM reviewed for meal composition. Pt had no further questions over material discussed at last visit. Will continue to monitor PO intakes on diet and f/u PRN. Ht: 185.42 cm Wt: 133.356 kg BMI: 38.7 Last BM: 11/29/23 (11/29/23 22:00) MNA: 12 Pedro Score: 22 Diet: 11/29/23 Lunch Full Liquid Diet Diet Modifications: 11/30/23 Breakfast Regular [General (Regular) Diet] Diet Modifications: Food Texture: Level 7 - Regular Liquid Consistency: Level 0 - Thin Nutrition Percent Meal Consumed 50% 11/29/23 14:00 Percent Meal Consumed 75% 11/29/23 13:08 Labs: RBC 4.52 X10^6/uL (4.5-5.9) 11/30/23 05:39 Hgb 12.6 g/dL (13.5-17.5) L 11/30/23 05:39 Hct 37.7 % (41-53) L 11/30/23 05:39 Creatinine 0.99 mg/dL (0.66-1.25) 11/30/23 05:39 Lactate 1.1 mmol/L (0.7-2.1) 11/26/23 18:28 Electronically Signed by: Sienna Escobar 11/30/23 10:47 Clinical Dietitian [address] [id number]
[2023-11-30 12:00] VITALS: BP 113/80; PULSE 66; RESP 15; TEMP 36.2; O2SAT 98
--- NOTE | 2023-11-30 12:32 | CM.DPC ---
DCP Cont. Reviewed EMR and team rounds for status updates. Pt has been medically cleared for home d/c, his spouse will be transporting home. No further CM d/c needs indicated at this time.
--- NOTE | 2023-11-30 13:32 | PM.DS.1 ---
History of Present Illness History of Present Illness Date Patient Seen: 11/30/23 Time Patient Seen: 13:32 Chief complaint: abd pain, hot flashes, hx of diverticulitis Discharge Providers Provider Date of admission: 11/26/23 19:31 Discharge Date: 11/30/23 Primary care physician: Michelle Rayo MD Consults: 11/26/23 19:31 Consult to General Surgery Stat Comment: Consulting Provider: Ana Mtz Reason for consultation: Perforated diverticulitis Has provider been notified: Yes 11/28/23 14:00 Consult to Dietitian, Adult Routine Comment: Reason For Exam: Questions re: diverticulitis diet Discharge provider: Gerald Beltran MD Summary Hospital Course Discharge Diagnosis: Perforated diverticulitis Hospital Course: The patient is a 38-year-old man who was admitted with perforated diverticulitis. He was on IV antibiotics while in the hospital. He started to feel better and his diet was advanced. He was discharged home after about 3 days in the hospital. Exam Vital Signs (past 8 hours): - 11/30/23 08:44 11/30/23 12:00 Temperature 97.1 F L 97.1 F L Pulse Rate 60 66 Respiratory Rate 16 15 Blood Pressure 104/70 113/80 Pulse Oximetry 97 98 Oxygen Delivery Method Nasal Cannula Oxygen Flow Rate 0 Objective Labs 11/30/23 05:39 11/30/23 05:39 Labs: Laboratory Results - last 24 hr 11/30/23 05:39 WBC 7.5 RBC 4.52 Hgb 12.6 L Hct 37.7 L MCV 83.3 MCH 27.8 MCHC 33.3 RDW 13.0 Plt Count 251 Sodium 139 Potassium 3.9 Chloride 108 H Carbon Dioxide 24 BUN 6 L Creatinine 0.99 Estimated GFR > 60 BUN/Creatinine Ratio 6.1 Glucose 86 Calcium 8.6 PFSH Social History household members: spouse and children Smoking Status: Never smoker Discharge Plan Discharge Plan Patient Disposition: Home Provider Discharge Comment: Needs to come after 6-8 weeks, and have sigmoidectomy. Discharge orders & Medications Prescriptions: New ciprofloxacin HCl [Cipro] 500 mg tablet 500 mg PO Q12H Qty: 30 0RF metronidazole [Flagyl] 375 mg capsule 375 mg PO Q12H Qty: 30 0RF Continued pantoprazole 40 mg tablet,delayed release (DR/EC) 40 mg PO DAILY flurbiprofen 100 mg tablet 100 mg PO BID ciprofloxacin HCl 500 mg tablet 500 mg PO BID Qty: 30 0RF Follow up/Referrals: Michelle Rayo MD [Primary Care Provider] - Visit Report/Discharge Packet Instructions: Diverticulitis, DI for Flexible Sigmoidoscopy, DI for Diverticulitis, DI for Diverticulosis Stand Alone Forms: Patient Portal/API, Stroke Signs & Symptoms Discharge Data Primary Care Provider: Michelle Rayo Quality VTE Deep Vein Thrombosis/Pulmonary Embolism Present on Admission: No
--- NOTE | 2023-11-30 13:44 | PC.NURSE ---
Day shift: Discharge instructions gone over with patient. All questions answered, patient stated understanding. Pt understands to follow up with surgery for sigmoidectomy in 6-8 weeks. Information given about sigmoidectomy per patient request. PIV d/c'ed prior to discharge. All belongings with patient. PCT Peter escorted patient to exit where patient plans to drive himself home.
--- NOTE | 2023-12-06 11:17 | PC.NURSE ---
late entry - per RN flagyl stop time 11/25 was [id number]
== END 2023-11-30 13:46 | disposition home or self-care (01) | DRG 392 ==
LOC: ED 19:31 → AC 19:32
PROVIDERS: Admitting Provider Surgery; Emergency Provider Emergency Medicine; Referring Provider Emergency Medicine; Visit Provider Surgery
DX: K57.20 Diverticulitis of large intestine with perforation and abscess without bleeding (principal); N41.9 Inflammatory disease of prostate, unspecified
CPT/HCPCS: 36415; 74177; 80048; 80053; 83605; 83690; 85025; 85027; 87040; 96365; 96367; 99283; 99285; J0744; J1171; J2060; J2405; J2543; Q9967

== ENCOUNTER → 2023-12-14 11:06 | Outpatient (CLI) | payer OTHER, SELFPAY ==
[2023-11-26 19:38] VITALS: BMI 38.7
--- NOTE | 2023-12-14 11:07 | DI.CT.S_ITS ---
PROCEDURE: CT ABDOMEN PELVIS W CON INDICATIONS: Diverticulitis TECHNIQUE: After the administration of intravenous contrast, axial sections acquired from the lung bases to the pubic symphysis. Coronal and sagittal reformats were performed. For radiation dose reduction, the following was used: automated exposure control, adjustment of mA and/or kV according to patient size. COMPARISON: [facility], CT, CT ABDOMEN PELVIS W CON, 11/26/2023, 18:39. FINDINGS: Image quality: Diagnostic. Lower Chest: Mild cardiomegaly. No pleural or pericardial effusion. ABDOMEN: Liver: Mild hepatic steatosis. No solid mass. Gallbladder: Surgically absent. Biliary ducts: No biliary dilation. Pancreas: Normal size and morphology without visible ductal dilatation or inflammation. Spleen: Normal size. Occasional punctate calcified granulomas. Adrenal Glands: No adrenal nodules. Kidneys and Ureters: Symmetric enhancement. No nephrolithiasis or hydronephrosis. No hydroureter. Stomach and Bowel: Extensive diverticular disease of the sigmoid colon. Along the mesenteric margin of the sigmoid, there is an irregular inflammatory mass with prominent fat stranding measuring roughly 5.5 x 4.4 by 4.2 cm and containing a few punctate foci of extraluminal gas. No discrete fluid attenuation. There is a finger-like projection towards the anti mesenteric sigmoid colon but no discrete fistula. Occasional diverticula elsewhere in the colon which is largely decompressed. Stomach and small bowel loops are normal. No evidence of small bowel obstruction. Normal appendix. Peritoneum: Mild generalized left lower quadrant inflammation. No significant fascial thickening, free fluid, or focal fluid collection. Ventral Wall: No significant ventral hernia. Abdominal Nodes: No retroperitoneal or mesenteric adenopathy by size criteria. Vessels: The abdominal aorta, IVC, and portal vein are of normal caliber. PELVIS: Pelvic Organs: Unremarkable. Bladder: No stones or wall thickening. Pelvic Nodes: No enlarged lymph nodes. Miscellaneous: No inguinal hernias are seen. Bones: No suspicious bone lesions. Posterior surgical fusion from L4 through S1. IMPRESSION: Residual inflammatory mass in the void colon mesentery has decreased in size and contains much less gas compared to the prior exam. No drainable fluid component. There are no longer punctate areas of free extraperitoneal air. Mild hepatic steatosis, decreased compared to the prior exam. Dictated by: Dalia Lees M.D. on 12/14/2023 at 23:01 Approved by: Dalia Lees M.D. on 12/14/2023 at 23:07
== END ==
PROVIDERS: Referring Provider Surgery; Visit Provider Surgery
DX: K57.20 Diverticulitis of large intestine with perforation and abscess without bleeding (principal); K76.0 Fatty (change of) liver, not elsewhere classified; I51.7 Cardiomegaly; Z90.49 Acquired absence of other specified parts of digestive tract
CPT/HCPCS: 74177; Q9967

== ENCOUNTER 2024-01-23 06:01 | Inpatient (IN) | payer OTHER, SELFPAY ==
[2023-11-26 19:38] VITALS: BMI 38.7
[2024-01-11 13:48] VITALS: BMI 37.2
[2024-01-12 13:39] VITALS: BMI 37.2
[2024-01-23] VITALS (15 sets, daily range): BP systolic 56–138; BP diastolic 24–102; PULSE 84–120; RESP 2–22; TEMP 36.1–37.1; O2SAT 91–98; BMI 37.2
--- NOTE | 2024-01-23 | PATH_ITS ---
[facility] Accession Number: [id number] No. of containers..02 Tissue . 01 Material submitted: . PART A: colon - SIGMOID COLON PART B: body - POISSIBLE MECKELS . 01 Diagnosis: A. SIGMOID COLON, SEGMENTAL RESECTION: Segment of colon with diverticulosis, mural abscesses, and serositis, consistent with ruptured diverticulitis. Nine benign pericolonic lymph nodes. Negative for dysplasia or malignancy. . B. DESIGNATED POSSIBLE MECKEL'S, EXCISION: Portion of fibroadipose tissue with serositis and foreign body-type granulomatous inflammation, consistent with adhesion in the setting of ruptured diverticulitis. No evidence of neoplasm. MRV 01/26/2024 1722 Local . 01 Electronically signed: . Nicholas Willett MD, PhD, Pathologist NPI- [id number] . 01 Gross description: . A. Received in formalin with two patient identifiers and sigmoid colon, is an unoriented segment of colon, 14.2 cm in length by 2.5 cm in average diameter. The serosa is jackson and slightly roughened with creeping fat extending out to 5.2 cm. One staple line is inked blue while the opposite staple line is inked black, and the mesenteric margin is inked green. The lumen contains a small amount of green mucoid material. The mucosa is jackson and velvety with slightly edematous folds with no lesions identified. The ramsey average 0.4 cm thick with multiple diverticula measuring up to 1.8 cm in depth with a perforation at the base of one of the diverticula. Palpation reveals 11 jackson lymph node candidates ranging from 0.3 to 1.0 cm in greatest dimension. Director Of Hotel sections are submitted as follows: A1: Rep margins en face. A2: Diverticula with perforation. A3: Additional diverticula. A4: Normal full thickness sections. A5: Two intact lymph node candidates. A6: Five intact lymph node candidates. A7: Four intact lymph node candidates. B. Received in formalin with two patient identifiers and possible Meckel's, is a jackson to brown soft tissue fragment, 2.6 x 1.8 x 1.0 cm. The cauterized presumed margin is inked blue, and sectioning reveals a yellow, soft cut surface with no lumen or mucosa identified. The specimen is submitted entirely in B1-B3. ([id number]) /MRV 01/24/2024 1903 Local . 01 Pathologist provided ICD-10: K57.21 . 01 CPT . 985730, [id number] Specimen Comment: A courtesy copy of this report has been sent to [phone] Performed at: [address] [facility] [address], [place], [place] [id number] MD Edy Davis MD Phone: [phone]
[2024-01-23] MEDS: ACETAMINOPHEN 325 MG TABLET 975 MG PO (08:04)
[2024-01-23] MEDS: LACTATED RINGERS 1,000 ML 42 ML IV ×3 (08:17→13:08)
--- NOTE | 2024-01-23 08:49 | PM.HP.1 ---
History of Present Illness History of Present Illness Date Patient Seen: 01/23/24 Time Patient Seen: 08:49 Chief complaint: Lap-assisted sigmoid colon resection Narrative: Orville is a 38-year-old man who has chronic diverticulitis. See the office note from November for details. He did have some increased abdominal pain with the prep last night. [facility] Medical History (Updated 01/12/24 @ 14:49 by Jazzmine Pollock RN) History of COVID-19 (~2020) Diverticulitis Vasovagal syncope Depressive disorder Prostatitis CHRISTINA (obstructive sleep apnea) Surgical History (Updated 01/12/24 @ 14:15 by Jazzmine Pollock RN) H/O removal of cyst H/O vasectomy History of lumbar spinal fusion (2019) History of lumbar spinal fusion (2017) Hx of colonoscopy (11/27/23) Hx of cholecystectomy (2019) Social History household members: spouse and children Smoking Status: Former smoker alcohol intake: former Meds Home Medications and Allergies Home Medications Medication Instructions Recorded Confirmed Type pantoprazole 40 mg tablet,delayed 40 mg PO DAILY 11/26/23 01/23/24 History release metronidazole 375 mg capsule 375 mg PO Q12H #30 caps 11/29/23 01/12/24 Rx (Flagyl) metronidazole 500 mg tablet 500 mg PO TID #3 tabs 12/06/23 01/12/24 Rx neomycin 500 mg tablet 1 g (2 x 500 mg) PO TID 3 doses #6 12/06/23 01/12/24 Rx tabs Allergies Allergy/AdvReac Type Severity Reaction Status Date / Time bee venom protein (honey bee) Allergy Unknown Anaphylaxis Verified 01/23/24 07:38 [BEE VENOM PROTEIN (HONEY as a child BEE)] Exam Vital Signs (past 8 hours): - 01/23/24 07:46 Temperature 98 F Pulse Rate 120 H Respiratory Rate 17 Blood Pressure 138/102 H Pulse Oximetry 91 Oxygen Delivery Method Room Air Oxygen Delivery Method Room Air Const General: No acute distress Resp Effort & Inspection: normal respiratory effort Assessment & Plan Assessment and plan (1) Diverticulitis of colon with perforation: Problem details: Pain MUCH better today; will advance his diet to full liquids and then low residue normal diet tomorrow, x6-8 wks, and then NEEDS sigmoid colectomy, in 6-8 wks. Status: Acute Plan We will proceed with a laparoscopic-assisted sigmoid colectomy. We again discussed the possibility of needing a diverting loop ileostomy if the inflammation is severe. He would like to proceed. Time-Based Coding :: [TOTAL MINUTES] spent with patient and on the chart (including review of chart, obtaining history, exam, reviewing outside data, placing orders, documenting exam and treatment plan, and counseling patient) on [DATE].
[2024-01-23] MEDS: MIDAZOLAM 2 MG/2 ML VIAL IV (09:00)
[2024-01-23] MEDS: CEFAZOLIN 2 GM/100 ML PREMIX 100 ML IV (09:18)
[2024-01-23] MEDS: CIPROFLOXACIN 400 MG/200 ML PIGGYBACK 200 MG IV (09:37)
[2024-01-23] MEDS: metroNIDAZOLE 500 MG/100 ML PIGGYBACK 100 MG IV (09:39)
--- NOTE | 2024-01-23 09:44 | SUR.OPER ---
Lithotomy on padded OR bed. [place] Pad Positioner under torso. Head on pillow, arms padded and tucked at sides sleds used to for support. Legs secured in padded yellow fins stirrups.
[2024-01-23] MEDS: BUPIVACAINE 0.5% W/ EPI (PF) 30 ML VIAL INJ (10:27)
[2024-01-23] MEDS: BUPIVACAINE LIPOSOME 266 MG/20 ML VIAL INJ (13:31)
--- NOTE | 2024-01-23 14:01 | P.OP_ITS ---
Operative Date/Time/Diagnoses Date of procedure: 01/23/24 Time of procedure: 14:01 Pre-op diagnosis: Diverticulitis Post-op diagnosis: same Procedure & Clinicians Procedure: Laparoscopic-assisted sigmoid colon resection Same procedure as scheduled: Yes Surgeon: Gerald Beltran Ash Conveyor Operator: Chris De Leon Anesthesia Type: General Operative Notes Procedure in detail: The patient was given ciprofloxacin and Flagyl. The patient was brought to the operating room, placed on the table in the supine position and general endotracheal anesthesia was induced. A Sorenson catheter was inserted and the legs were placed in stirrups. The abdomen was prepped and draped in the usual fashion and a time-out was performed. We made a 1 cm supraumbilical incision and a Gallo port was placed. The abdomen was insufflated in the usual manner. The camera was inserted no evidence of an injury was seen. Next we placed 5 mm ports in the right lower quadrant, right upper quadrant, subxiphoid, left upper quadrant and left lower quadrant positions. We inspected the abdomen and found the thickened sigmoid colon. We then started to reflect the sigmoid colon along the white line of Toldt. We then continued the dissection to the splenic flexure and performed a complete takedown of the splenic flexure including the distal transverse colon. We continued the dissection down into the pelvis. Once we had adequate mobilization we created a low midline incision. The sigmoid colon was resected using 2 firings of the contour stapler. The mesentery was divided using the LigaSure. The specimen demonstrated thickening and induration of the mid sigmoid colon and there was fibrosis within the mesentery indicative of prior abscesses. We then created a colorectal anastomosis using the 29 mm EEA stapler. The donuts were intact. Initially there was a small air leak along the anterior aspect of the anastomosis. We then placed 3 seromuscular Lembert sutures with 3-0 silk where the air bubbles had been coming from. We repeated the leak test and it was negative. There was a loop of ileum that had been adherent to the sigmoid colon in the area of greatest inflammation and this appeared to be a possible Meckel's diverticulum. Although it did not appear to be inflamed or perforated we chose to resected at its base with cautery and closed the resulting defect with 3 interrupted 3-0 silk sutures in a Lembert fashion. Finally, Exparel was injected into the pre and post fascial planes. The fascia was then closed using a running 0 PDS suture supported by multiple interrupted 0 Vicryl internal retention sutures. The patient was awakened and brought to recovery room. EBL: 50 mL Specimen: Sigmoid colon and putative Meckel's diverticulum Chris PRICE provided assistance with exposure, retraction and closure of incisions. Post-operative Condition: stable Disposition: PACU
[2024-01-23] MEDS: ALBUMIN HUMAN 12.5 GM/250 ML VIAL IV ×2 (14:50→15:05)
[2024-01-23 15:04] LABS: Hematocrit 42.1 % (41-53); Hemoglobin 13.9 g/dL (13.5-17.5)
[2024-01-23] MEDS: OXYCODONE IR 5 MG TABLET PO (15:10)
[2024-01-23] MEDS: HYDROMORPHONE 0.5 MG INJ IV ×2 (15:34→18:07)
[2024-01-23] MEDS: IBUPROFEN 600 MG TABLET PO (18:07)
[2024-01-23] MEDS: LACTATED RINGERS 1,000 ML 100 ML IV (19:44)
[2024-01-23] MEDS: HYDROMORPHONE 1 MG INJ IV ×2 (19:45→21:56)
[2024-01-23] MEDS: MAG HYDROX/ALUM/SIMETH 30 ML UDC PO (21:54)
[2024-01-23] MEDS: HYDROCODONE/ACET 5/325 TABLET 2 TAB PO (23:58)
[2024-01-24] VITALS (9 sets, daily range): BP systolic 67–128; BP diastolic 45–89; PULSE 65–87; RESP 18–19; TEMP 36.1–37.1; O2SAT 96–99
[2024-01-24] MEDS: HYDROMORPHONE 1 MG INJ IV ×5 (02:46→22:01)
[2024-01-24] MEDS: IBUPROFEN 600 MG TABLET PO ×3 (02:48→22:00)
[2024-01-24 06:49] LABS: Add Manual Diff / Slide Review NO; Basophils Absolute Auto 100 /uL (0-100); Basophils Percent Auto 0.9 % (0-2); Eosinophils Absolute Auto 0 /uL (0-450); Hematocrit 38.7 % (41-53); Hemoglobin 12.7 g/dL (13.5-17.5); Lymphocytes Absolute Auto 2000 /uL (1100-4500); Lymphocytes Percent Auto 17.2 % (25-40); Mean Corpuscular HGB Conc 32.9 % (30-36); Mean Corpuscular Hemoglobin 27.3 PG (26-34); Mean Corpuscular Volume 82.8 fL (80-100); Monocytes Absolute Auto 800 /uL (0-900); Monocytes Percent Auto 6.8 % (3-14); Neutrophils Absolute Auto 8600 /uL (1500-7000); Neutrophils Percent Auto 75.1 % (50-75); Platelet Count 211 X10^3/uL (150-400); Red Blood Cell Count 4.67 X10^6/uL (4.5-5.9); White Blood Cell Count 11.5 X10^3/uL (4.5-11.0)
[2024-01-24 06:57] LABS: BUN Creatinine Ratio 9.9 (6-22); Blood Urea Nitrogen 8 mg/dL (9-20); Calcium 8.5 mg/dL (8.4-10.2); Carbon Dioxide 25 mmol/L (22-32); Chloride 105 mmol/L (98-107); Estimated Glomerular Filt Rate > 60 mL/min (>60); Glucose 106 mg/dL (70-100); HEMOLYSIS < 15 (0-50); Potassium 3.8 mmol/L (3.4-5.1); Sodium 137 mmol/L (137-145)
[2024-01-24] MEDS: FAMOTIDINE 20 MG TABLET PO ×2 (08:04→22:00)
[2024-01-24] MEDS: ACETAMINOPHEN 325 MG TABLET 650 MG PO ×3 (08:04→22:00)
--- NOTE | 2024-01-24 09:56 | PC.NURSE ---
0930 Pt pryor removed per request and up to chair with assist from BANK COURIER. Initially tolerated well with bp of 128/87 and agreed to call for assistance as needed. Call light on about 5 minutes later and Pt bp was 67/45-Pt was diaphoretic and pale and stated his ears were ringing and he felt dizzy. Transferred Pt back to bed and placed Pt in trendelenberg position-Pt stated he felt much better and the ear-ringing and dizziness were gone, colored returned to pink, bp 102/71. Pt returned to normal position in bed 30degrees and knees elevated with scd's back on and stated he felt much better. Pt agrees to call for assistance as needed.
--- NOTE | 2024-01-24 11:04 | PM.PN.1 ---
Subjective Subjective Date Patient Seen: 01/24/24 Time Patient Seen: 11:04 Interval history: Devon has had lower abdominal pain overnight and this morning. His Sorenson catheter was removed this morning. Exam Vital Signs (past 8 hours): - 01/24/24 07:00 01/24/24 09:30 01/24/24 09:35 Temperature 97.0 F L Pulse Rate 87 80 75 Respiratory Rate 18 Blood Pressure 117/76 128/87 67/45 L Pulse Oximetry 98 99 99 Oxygen Flow Rate 0 0 0 01/24/24 09:50 01/24/24 10:47 Temperature Pulse Rate 72 70 Respiratory Rate Blood Pressure 102/71 107/71 Pulse Oximetry Oxygen Flow Rate Fraction of Inspired Oxygen 28 Oxygen Delivery Method Nasal Cannula Oxygen Flow Rate 0 Narrative Exam Narrative: Abdomen is soft Incision is without erythema Normal respirations Objective Labs 01/24/24 06:13 01/24/24 06:13 Labs: Laboratory Results - last 24 hr 01/23/24 01/24/24 14:50 06:13 WBC 11.5 H RBC 4.67 Hgb 13.9 12.7 L Hct 42.1 38.7 L MCV 82.8 MCH 27.3 MCHC 32.9 RDW 15.0 H Plt Count 211 Neut % (Auto) 75.1 H Lymph % (Auto) 17.2 L Mcpherson % (Auto) 6.8 Eos % (Auto) 0.0 L Baso % (Auto) 0.9 Neut # (Auto) 8600 H Lymph # (Auto) 2000 Mcpherson # (Auto) 800 Eos # (Auto) 0 Baso # (Auto) 100 Sodium 137 Potassium 3.8 Chloride 105 Carbon Dioxide 25 BUN 8 L Creatinine 0.81 Estimated GFR > 60 BUN/Creatinine Ratio 9.9 Glucose 106 H Calcium 8.5 PFSH Medical History (Updated 01/12/24 @ 14:49 by Jazzmine Pollock RN) History of COVID-19 (~2020) Diverticulitis Vasovagal syncope Depressive disorder Prostatitis CHRISTINA (obstructive sleep apnea) Surgical History (Updated 01/12/24 @ 14:15 by Jazzmine Pollock RN) H/O removal of cyst H/O vasectomy History of lumbar spinal fusion (2019) History of lumbar spinal fusion (2017) Hx of colonoscopy (11/27/23) Hx of cholecystectomy (2019) Social History household members: spouse and children Smoking Status: Former smoker alcohol intake: former Assessment & Plan Assessment and plan (1) Diverticulitis of colon with perforation: Problem details: Pain MUCH better today; will advance his diet to full liquids and then low residue normal diet tomorrow, x6-8 wks, and then NEEDS sigmoid colectomy, in 6-8 wks. Status: Acute Plan Doing well We will change his oral pain medications from hydrocodone to Dilaudid to try to get him off IV Dilaudid We will start Lovenox today Time-Based Coding :: [TOTAL MINUTES] spent with patient and on the chart (including review of chart, obtaining history, exam, reviewing outside data, placing orders, documenting exam and treatment plan, and counseling patient) on [DATE]. Quality VTE Deep Vein Thrombosis/Pulmonary Embolism Present on Admission: No
[2024-01-24] MEDS: MAG HYDROX/ALUM/SIMETH 30 ML UDC PO (13:43)
[2024-01-24] MEDS: HYDROMORPHONE 2 MG TABLET PO (14:26)
[2024-01-24] MEDS: HYDROMORPHONE 0.5 MG INJ IV ×2 (15:43→18:38)
[2024-01-24] MEDS: LACTATED RINGERS 1,000 ML 100 ML IV (20:21)
[2024-01-25] MEDS: HYDROMORPHONE 1 MG INJ IV ×7 (00:10→22:03)
[2024-01-25] MEDS: ACETAMINOPHEN 325 MG TABLET 650 MG PO ×3 (04:04→16:05)
[2024-01-25] MEDS: HYDROMORPHONE 0.5 MG INJ IV (04:04)
[2024-01-25 05:00] VITALS: BP 130/66; PULSE 86; RESP 19; TEMP 37.1; O2SAT 98
[2024-01-25 07:00] VITALS: BP 122/76; PULSE 72; RESP 18; TEMP 36.7; O2SAT 97
--- NOTE | 2024-01-25 07:22 | CM.DANOTE ---
Initial DCP Assessment Visit Note Reviewed EMR and team rounds for pt's medical status and status updates. Met with pt at bedside to introduce self and role, pt was found to be somnolent, still in quite a bit of pain, however was able to engage in visit and provide information re: his post-discharge care plan. Pt lives independently at baseline with his and children in their own home in [place]. His will transport him home once he's medically stable for d/c. He denies any CM assistance for d/c or resources. Payor: Inder Liang PCP: Michelle Rayo Pt is a 38 year-old M post-op day 1 from a planned laparoscopic sigmoid colectomy. He has a hx of multiple infections from smoldering diverticulitis, now with a perforation. He is beginning to advance his diet with clears today, and will transition to a regular diet tomorrow, if he can tolerate it. He has had issues with low blood pressure postoperatively, and is being monitored closely by Surgery. DCP will continue to monitor and assist with any further evolving needs. Discharge Planning/Care Management Advanced directive, confirm from FAMILY Start: 01/23/24 16:10 Freq: Q24H Status: Complete Protocol: Document 01/23/24 16:10 CM (Rec: 01/23/24 16:22 CM [id number]) Advance Directive, confirm on record Time 16:22 Person contacted Pt Copy received No Pre-Anesthesia Assessment Start: 01/11/24 13:48 Freq: Status: Complete Protocol: Document 01/11/24 13:48 CAB (Rec: 01/11/24 14:29 CAB [id number]) Pre-Anesthesia Assessment PAC Comment Unable to reach pt for scheduled phone assess. Recording Number is not in service x 4 attempts, chart review only. Admit to 11/26/23-11/30/23 - Perforated diverticulitis Patient Information Reviewed Via Chart Review Primary Care Provider Seen Specialist in Last 12 Months Yes Specialist Seen General surgeon,Urologist Primary Language Jordanian Preferred Language Jordanian Wine Blender Required No Height 187.96 cm Weight 131.542 kg Body Mass Index (BMI) 37.2 Anesthesia Review Requested No Basket Assembler No Smoking Status Never smoker Pain Present Pain Reported Patient is completely paralyzed or No completely immobile Mental Status Oriented to own ability Is patient on oxygen? No Hx Sleep Apnea Yes: Current CPAP usage unknown Currently Taking a Beta Bhakti No Anti-Coagulant Therapy No Has a Fuel Cell Repairer No Cardiac Testing No Hx Pacemaker/ICD No Pacemaker Rep Required? No Cardiac Clearance Received No Urinary Catheter Present No Hx Urinary Self Catheterization No Diabetes No Received a COVID vaccine? Yes Marital Status Lives With spouse,children Patient Discharge Plan Description Return Home Do You Have Any Spiritual Beliefs That No May Affect Your HC Choices? Do You Have Any Cultural Practices That No May Affect Your HC Choices? Emergency Contact Name Eleni Givens Emergency Contact Advance Directives? No Advance Directives on File No Power of Scrap Metal Burner No Document 01/12/24 13:39 CAB (Rec: 01/12/24 15:17 CAB [id number]) Pre-Anesthesia Assessment PAC Comment Phone assess. Admit to -11/30/23 Perforated diverticulitis Preferred Name Devon Patient Information Reviewed Via Phone Assessment Assessment Completed With Patient Primary Care Provider Seen Specialist in Last 12 Months Yes Specialist Seen General surgeon,Urologist Primary Language Jordanian Preferred Language Jordanian Wine Blender Required No Height 187.96 cm Weight 131.542 kg Body Mass Index (BMI) 37.2 Hearing Ability Normal Visual Assist Glasses Dentition Type Teeth, Natural Present Barriers to Learning None Hx Anesthesia Reactions No Hx Family Anesthesia Reaction No Hx Malignant Hyperthermia No Hx Blood Transfusions No Anesthesia Review Requested No Basket Assembler No alcohol intake former Alcohol Intake Frequency Other: Currently not drinking Smoking Status Former smoker how long ago did patient quit smoking Quit in his 20's Substance Use Type [#R] does not use Pain Present Pain Reported Musculoskeletal Symptoms Back Pain History of Falling (Recent or History of No ) Patient is completely paralyzed or No completely immobile Mental Status Oriented to own ability Is patient on oxygen? No Does patient have DUBON/SOB No Hx Sleep Apnea Yes: Current CPAP usage unknown CPAP/BIPAP use prescribed and used routinely Will Bring CPAP/BIPAP DOS Yes Currently Taking a Beta Bhakti No Can You Climb a Flight of Stairs Without Yes SOB Hx Chest Pain Yes: Intermittent, ZIO patch Hx SOB No Hx Syncope or Dizziness No Anti-Coagulant Therapy No Has a Fuel Cell Repairer No Cardiac Testing Yes: ZIO patch 09/12/23 scanned and in surgery folder Hx Pacemaker/ICD No Pacemaker Rep Required? No Cardiac Clearance Received No Diet Type At Home Regular Dysphagia No Gastrointestinal Symptoms Abdominal Pain,Bloating,Blood in Stool Urinary Catheter Present No Hx Urinary Self Catheterization No Diabetes No Hx Drug Resistant Organism No Presence of External or Internal Medical Yes: lumbar fusion, CPAP Devices Received a COVID vaccine? Yes Comment No covid symptoms x 8 weeks Marital Status Lives With spouse,children Current Living Arrangements House Number of Floors (Floors) Two Floors Support System Spouse Does the Patient Have Assistance After Yes Surgery Patient Discharge Plan Description Return Home Comment Pt advised 4-5 day length of stay per surgeon Feels Safe in Current Environment Yes Been Physically Hurt or Threatened By a No Person in Current Environment Do you have thoughts of harming yourself None or others? Are you currently considering suicide? No Do you have a plan to hurt yourself or No Plan others? Do You Have Any Spiritual Beliefs That No May Affect Your HC Choices? Do You Have Any Cultural Practices That No May Affect Your HC Choices? Who Can We Speak to About Patient's Care Family, friends Identifying Code for Release of Patient Declines to issue Information Health Care Proxy/Next of Kin Eleni () Health Care Proxy Emergency Contact Name Eleni () Emergency Contact Advance Directives? No Advance Directives on File No Power of Scrap Metal Burner No PAC Instructions Bring CPAP/BIPAP,Durable medical equipment,Medications to take/avoid,No ETOH/ petroleum product on skin DOS, NPO,Pre-op antibiotic,Pre- surgical wash,Sturdy shoes/ comfortable clothes,Do not bring valuables and remove jewelry
[2024-01-25] MEDS: FAMOTIDINE 20 MG TABLET PO ×2 (09:30→20:25)
[2024-01-25] MEDS: IBUPROFEN 600 MG TABLET PO ×2 (11:54→17:25)
--- NOTE | 2024-01-25 13:30 | PC.NURSE ---
RN spoke to pt this afternoon, pt called and said his pain was not improving, IV dilauded was given about an hour before. RN flushed line with saline and pt says he felt it was helping. RN called provider on cell and Dr linares said he will put in orders for PO dilauded. Pt is up walking the halls now and talking with BLANCO
[2024-01-25 16:00] VITALS: BP 126/78; PULSE 77; RESP 18; TEMP 36.8; O2SAT 99
--- NOTE | 2024-01-25 16:06 | PM.PN.1 ---
Subjective Subjective Date Patient Seen: 01/25/24 Time Patient Seen: 16:07 Interval history: Bebeto is doing somewhat better today. No flatus yet. He is experiencing some reflux. Exam Vital Signs (past 8 hours): Fraction of Inspired Oxygen 28 Oxygen Delivery Method Room Air Oxygen Flow Rate 0 Narrative Exam Narrative: Abdomen is soft, nontender Objective Labs 01/24/24 06:13 01/24/24 06:13 [facility] Medical History (Updated 01/12/24 @ 14:49 by Jazzmine Pollock RN) History of COVID-19 (~2020) Diverticulitis Vasovagal syncope Depressive disorder Prostatitis CHRISTINA (obstructive sleep apnea) Surgical History (Updated 01/12/24 @ 14:15 by Jazzmine Pollock RN) H/O removal of cyst H/O vasectomy History of lumbar spinal fusion (2019) History of lumbar spinal fusion (2017) Hx of colonoscopy (11/27/23) Hx of cholecystectomy (2019) Social History household members: spouse and children Smoking Status: Former smoker alcohol intake: former Assessment & Plan Assessment and plan (1) Diverticulitis of colon with perforation: Problem details: Pain MUCH better today; will advance his diet to full liquids and then low residue normal diet tomorrow, x6-8 wks, and then NEEDS sigmoid colectomy, in 6-8 wks. Status: Acute Plan We will advance to full liquid diet Hep-Lock IV Oral Dilaudid for pain Time-Based Coding :: [TOTAL MINUTES] spent with patient and on the chart (including review of chart, obtaining history, exam, reviewing outside data, placing orders, documenting exam and treatment plan, and counseling patient) on [DATE]. Quality VTE Deep Vein Thrombosis/Pulmonary Embolism Present on Admission: No
[2024-01-25] MEDS: HYDROMORPHONE 2 MG TABLET PO (17:25)
[2024-01-25] MEDS: ONDANSETRON 4 MG/2 ML INJ IV (18:35)
[2024-01-25] MEDS: MAG HYDROX/ALUM/SIMETH 30 ML UDC PO (18:35)
[2024-01-25 20:30] VITALS: BP 131/93; PULSE 81; RESP 18; TEMP 37.5; O2SAT 96
[2024-01-26] MEDS: IBUPROFEN 600 MG TABLET PO (00:59)
[2024-01-26] MEDS: HYDROMORPHONE 1 MG INJ IV ×10 (01:00→23:29)
[2024-01-26] MEDS: ACETAMINOPHEN 325 MG TABLET 650 MG PO ×4 (04:25→23:31)
[2024-01-26 04:26] VITALS: BP 122/79; PULSE 78; RESP 17; TEMP 37.1; O2SAT 97
--- NOTE | 2024-01-26 06:53 | PC.NURSE ---
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 Patient's abdomen is distended, absent bowel sounds and no flatus present. Patient requests IV dilaudid. 1mg IV dilaudid administered (see MAR). Patients complains of nausea and has one 600ml episode of emesis. Patient states, I feel much better after vomiting. No change in abdominal distention, bowel tones or flatus throughout the shift. No complaints of nausea or emesis after the one episode.
[2024-01-26 07:00] VITALS: BP 135/85; PULSE 77; RESP 18; TEMP 36.9; O2SAT 94
[2024-01-26] MEDS: FAMOTIDINE 20 MG TABLET PO ×2 (08:36→20:38)
[2024-01-26] MEDS: HYDROMORPHONE 0.5 MG INJ IV ×5 (08:36→18:02)
[2024-01-26] MEDS: HYDROMORPHONE 2 MG TABLET PO (09:39)
--- NOTE | 2024-01-26 10:46 | CM.DPNOTE ---
DCP Cont Reviewed chart. Patient discussed in multidisciplinary rounds. Patient continues to have nausea and vomiting. ABRAHAM is likely days out still. Plan remains discharge home w/family with close outpatient follow up. CM team following closely in case any discharge needs or concerns arise. RICK
[2024-01-26] MEDS: CELECOXIB 200 MG CAPSULE PO ×2 (11:40→20:37)
[2024-01-26] MEDS: PREGABALIN 75 MG CAPSULE PO ×2 (11:40→20:37)
[2024-01-26] MEDS: OXYCODONE IR 5 MG TABLET PO ×3 (12:48→20:37)
--- NOTE | 2024-01-26 14:56 | P.PN_ITS ---
Subjective Subjective Date Patient Seen: 01/26/24 Time Patient Seen: 14:56 Interval history: Patient is passing flatus and has had 2 bowel movements today. He is only having incisional pain, otherwise feels well. Exam Vital Signs (past 8 hours): - 01/26/24 07:00 Temperature 98.5 F Pulse Rate 77 Respiratory Rate 18 Blood Pressure 135/85 Pulse Oximetry 94 Oxygen Flow Rate 0 Fraction of Inspired Oxygen 28 Oxygen Delivery Method Room Air Oxygen Flow Rate 0 Narrative Exam Narrative: Gen: NAD, sitting comfortably in bed, appears well HEENT: Sclera are anicteric, head is normocephalic and atraumatic, trachea is midline. CV: RRR, no JVD Resp: clear to auscultation bilaterally, equal chest wall movement bilaterally Abd: soft, nontender, normoactive bowel sounds Ext: no edema, full range of motion Neuro: Cranial nerves II-XII grossly intact, no focal deficits Skin: No erythema or ecchymosis Objective Labs 01/24/24 06:13 01/24/24 06:13 [facility] Medical History (Updated 01/12/24 @ 14:49 by Jazzmine Pollock RN) History of COVID-19 (~2020) Diverticulitis Vasovagal syncope Depressive disorder Prostatitis CHRISTINA (obstructive sleep apnea) Surgical History (Updated 01/12/24 @ 14:15 by Jazzmine Pollock RN) H/O removal of cyst H/O vasectomy History of lumbar spinal fusion (2019) History of lumbar spinal fusion (2017) Hx of colonoscopy (11/27/23) Hx of cholecystectomy (2019) Social History household members: spouse and children Smoking Status: Former smoker alcohol intake: former Assessment & Plan Assessment and plan (1) Diverticulitis of colon with perforation: Problem details: Pain MUCH better today; will advance his diet to full liquids and then low residue normal diet tomorrow, x6-8 wks, and then NEEDS sigmoid colectomy, in 6-8 wks. Status: Acute Plan We will advance to soft diet Hep-Lock IV Patient states the wants to try oral oxycodone instead of oral Dilaudid. We will also add Celebrex because he said that ibuprofen upsets his stomach. Time-Based Coding :: [TOTAL MINUTES] spent with patient and on the chart (including review of chart, obtaining history, exam, reviewing outside data, placing orders, documenting exam and treatment plan, and counseling patient) on [DATE]. Quality VTE Deep Vein Thrombosis/Pulmonary Embolism Present on Admission: No
[2024-01-26 16:50] VITALS: BP 160/98; PULSE 112; RESP 21; TEMP 37.3; O2SAT 94
--- NOTE | 2024-01-26 16:50 | DI.CT.S_ITS ---
PROCEDURE: CT ABDOMEN PELVIS W CON INDICATIONS: tachycardia and pain after colon surgery TECHNIQUE: After the administration of intravenous contrast, axial sections acquired from the lung bases to the pubic symphysis. Coronal and sagittal reformats were performed. For radiation dose reduction, the following was used: automated exposure control, adjustment of mA and/or kV according to patient size. COMPARISON: [facility], CT, CT ABDOMEN PELVIS W CON, 12/14/2023, 12:20. [facility], CT, CT ABDOMEN PELVIS W CON, 11/26/2023, 18:39. FINDINGS: Image quality: Diagnostic. Peritoneum: No pneumoperitoneum or ascites. Bones: No acute osseous abnormality. Rudimentary ribs at L1. Prior L4-S1 posterior fusion with intervertebral disc cage placement Lower Chest: Streaky opacifications at the lung bases (5/14). Liver: Normal in size and contour. Hepatic hypoattenuation. Gallbladder: Not identified. Biliary tree: No intrahepatic or extrahepatic biliary ductal dilatation. Pancreas: Within normal limits. Spleen: Normal in size and contour. Kidneys: No hydronephrosis or obstructive urolithiasis. Adrenals: No adrenal nodularity. Bladder: Normal in size and wall thickness. : No acute abnormality. Stomach: Normal in size and contour. Bowel: Status post recent lower partial colectomy/sigmoidectomy with anastomotic sutures (2/135). Scattered colonic diverticuli. Fluid in the colon up to the level of the mid transverse colon (2/74) dilated jejunal loops with a maximum diameter of 4.2 cm (2/116) predominantly along the left hemiabdomen with at least 1 transition point in the left lower abdomen (3/39). The distal small bowel loops are decompressed. The appendix is not identified. No secondary signs of acute appendicitis. Lymph Nodes: No retroperitoneal, mesenteric, or inguinal lymphadenopathy. Vascular: No abdominal aortic aneurysm. The visualized arterial vasculature is patent. Soft Tissues: Midline anterior wall surgical incision site with surgical clips and small foci of subcutaneous emphysema (2/125). IMPRESSION: 1. Left hemiabdomen partial small bowel obstruction within 1 transition point in the left lower abdomen. 2. Sequela of prior complicated sigmoid colonic diverticulitis , status post left lower partial colectomy without evidence of a postoperative, drainable fluid collection. 3. Hepatic steatosis. Dictated by: Vel Pinto M.D. on 01/26/2024 at 18:48 Approved by: Vel Pinto M.D. on 01/26/2024 at 19:00
--- NOTE | 2024-01-26 16:51 | PC.NURSE ---
Pt has had difficulty controlling pain throughout the shift. Dr. Peña as been contacted twice about lack of pain control. Gave Dr. Peña most recent set of vitals and pt's pain level. Dr. Peña is ordering a CT scan with contrast to make sure there is no leak happening.
[2024-01-26 20:00] VITALS: BP 143/87; PULSE 75; RESP 18; TEMP 36.9; O2SAT 97
[2024-01-26] MEDS: methocarbamoL 500 MG TABLET PO (20:37)
[2024-01-27] MEDS: HYDROMORPHONE 1 MG INJ IV ×8 (02:06→22:05)
[2024-01-27 04:00] VITALS: BP 111/70; PULSE 77; RESP 17; TEMP 36.6; O2SAT 98
[2024-01-27 08:00] VITALS: BP 129/85; PULSE 71; RESP 18; TEMP 36.7; O2SAT 96
[2024-01-27] MEDS: methocarbamoL 500 MG TABLET PO ×4 (08:29→20:08)
[2024-01-27] MEDS: CELECOXIB 200 MG CAPSULE PO ×2 (08:30→20:08)
[2024-01-27] MEDS: PREGABALIN 75 MG CAPSULE PO ×2 (08:30→20:08)
[2024-01-27] MEDS: FAMOTIDINE 20 MG TABLET PO ×2 (08:30→20:08)
[2024-01-27] MEDS: OXYCODONE IR 5 MG TABLET PO (09:35)
[2024-01-27] MEDS: ACETAMINOPHEN 325 MG TABLET 650 MG PO ×3 (11:10→22:04)
--- NOTE | 2024-01-27 13:23 | PM.PNPO.1 ---
Subjective Subjective Date Patient Seen: 01/27/24 Time Patient Seen: 13:23 Interval history: Patient is still requiring IV dilaudid. He is having bowel movements. He is very anxious about not having enough pain medications for discharge. Exam Vital Signs (past 8 hours): - 01/27/24 08:00 Temperature 98.0 F Pulse Rate 71 Respiratory Rate 18 Blood Pressure 129/85 Pulse Oximetry 96 Oxygen Flow Rate 0 Fraction of Inspired Oxygen 28 Oxygen Delivery Method Room Air Oxygen Flow Rate 0 Narrative Exam Narrative: Gen: NAD, sitting comfortably in bed, appears well HEENT: Sclera are anicteric, head is normocephalic and atraumatic, trachea is midline. CV: RRR, no JVD Resp: clear to auscultation bilaterally, equal chest wall movement bilaterally Abd: soft, appropriately tender, incision clean and dry and covered,, normoactive bowel sounds Ext: no edema, full range of motion Neuro: Cranial nerves II-XII grossly intact, no focal deficits Skin: No erythema or ecchymosis Objective Labs 01/24/24 06:13 01/24/24 06:13 [facility] Medical History (Updated 01/12/24 @ 14:49 by Jazzmine Pollock RN) History of COVID-19 (~2020) Diverticulitis Vasovagal syncope Depressive disorder Prostatitis CHRISTINA (obstructive sleep apnea) Surgical History (Updated 01/12/24 @ 14:15 by Jazzmine Pollock RN) H/O removal of cyst H/O vasectomy History of lumbar spinal fusion (2019) History of lumbar spinal fusion (2017) Hx of colonoscopy (11/27/23) Hx of cholecystectomy (2019) Social History household members: spouse and children Smoking Status: Former smoker alcohol intake: former Assessment & Plan Post-op Postoperative Procedures: Procedures Operation Date: 01/23/24 09:00 Actual Procedure Side Surgeon p Laparoscopic Assisted Sigmoid Colon Resection Not Applicable Gerald Beltran MD Postoperative day: 4 Postoperative status: marginal pain control Postoperative status narrative: Still having trouble dialing in what his homegoing pain med regimen should be. Yesterday he did not want the Dilaudid he wanted to try oxycodone. The oxycodone is not helpful he would like to switch back to oral Dilaudid. Postoperative plan: ambulate Time Spent With Patient Time with patient: less than 15 minutes Quality VTE Deep Vein Thrombosis/Pulmonary Embolism Present on Admission: No
[2024-01-27] MEDS: HYDROMORPHONE 2 MG TABLET PO ×2 (14:29→18:37)
[2024-01-27 16:00] VITALS: BP 149/93; PULSE 96; RESP 20; TEMP 36.4; O2SAT 97
[2024-01-27 20:51] VITALS: BP 136/94; PULSE 84; RESP 18; TEMP 36.1; O2SAT 99
[2024-01-28] MEDS: HYDROMORPHONE 1 MG INJ IV ×8 (00:05→22:22)
[2024-01-28] MEDS: ACETAMINOPHEN 325 MG TABLET 650 MG PO ×4 (04:11→22:16)
--- NOTE | 2024-01-28 07:36 | PC.NURSE ---
Pt was up all night, c/o pain 7-09/15, requesting dilaudid 1 mg every 2 hours. pt concerned about going home with adequate pain meds. BT are hypo active, per pt he had multiple loose bowel movements.
[2024-01-28] MEDS: FAMOTIDINE 20 MG TABLET PO ×2 (09:02→20:33)
[2024-01-28] MEDS: methocarbamoL 500 MG TABLET PO ×4 (09:02→20:32)
[2024-01-28] MEDS: HYDROMORPHONE 2 MG TABLET PO ×2 (09:02→13:49)
[2024-01-28] MEDS: CELECOXIB 200 MG CAPSULE PO ×2 (09:02→20:32)
[2024-01-28] MEDS: PREGABALIN 75 MG CAPSULE PO ×2 (09:02→20:32)
[2024-01-28] MEDS: LIDOCAINE 5% PATCH 1 EACH TOP (09:03)
--- NOTE | 2024-01-28 11:47 | CM.DPNOTE ---
DCP Note Reviewed EMR. Patient discussed in multidisciplinary rounds. Per charge lpn, ambulating and having BMs. Patient continues to have pain requiring IV pain medications. ABRAHAM later today vs Monday. Plan remains discharge home w/family with close outpatient follow up. CM team following closely in case any discharge needs or concerns arise. MANDIE Petit
--- NOTE | 2024-01-28 14:31 | PM.PNPO.1 ---
Subjective Subjective Date Patient Seen: 01/28/24 Time Patient Seen: 14:31 Interval history: Patient still received IV doses of Dilaudid overnight. It appears they were choosing IV over oral. Discussed with day shift nurse and she has not clear based on documentation why the patient was still getting IV Dilaudid overnight. Exam Vital Signs (past 8 hours): Fraction of Inspired Oxygen 28 Oxygen Delivery Method Room Air Oxygen Flow Rate 0 Narrative Exam Narrative: Gen: NAD, ambulating the halls without difficulty, appears well HEENT: Sclera are anicteric, head is normocephalic and atraumatic, trachea is midline. CV: RRR, no JVD Resp: clear to auscultation bilaterally, equal chest wall movement bilaterally Abd: soft, nontender, normoactive bowel sounds Ext: no edema, full range of motion Neuro: Cranial nerves II-XII grossly intact, no focal deficits Skin: No erythema or ecchymosis Objective Labs 01/24/24 06:13 01/24/24 06:13 [facility] Medical History (Updated 01/12/24 @ 14:49 by Jazzmine Pollock RN) History of COVID-19 (~2020) Diverticulitis Vasovagal syncope Depressive disorder Prostatitis CHRISTINA (obstructive sleep apnea) Surgical History (Updated 01/12/24 @ 14:15 by Jazzmine Pollock RN) H/O removal of cyst H/O vasectomy History of lumbar spinal fusion (2019) History of lumbar spinal fusion (2017) Hx of colonoscopy (11/27/23) Hx of cholecystectomy (2019) Social History household members: spouse and children Smoking Status: Former smoker alcohol intake: former Assessment & Plan Post-op Postoperative Procedures: Procedures Operation Date: 01/23/24 09:00 Actual Procedure Side Surgeon p Laparoscopic Assisted Sigmoid Colon Resection Not Applicable Gerald Beltran MD Postoperative day: 5 Postoperative status: marginal pain control Postoperative status narrative: Discussed with nurse and patient the preference to use oral pain medication. Increased now to 4 mg of oral Dilaudid as needed, up from 2 he was supposed to be getting before. Reviewed with the patient the list of pain medications he has available to him, Tylenol, Celebrex, Lyrica, lidocaine patches, muscle relaxants in addition to the narcotics. Reviewed that we performed a CT scan with oral contrast that does not show any signs of complications. Postoperative plan: ambulate Time Spent With Patient Time with patient: 15-24 minutes Quality VTE Deep Vein Thrombosis/Pulmonary Embolism Present on Admission: No
[2024-01-28] MEDS: HYDROMORPHONE 2 MG TABLET 4 MG PO ×2 (16:10→20:33)
--- NOTE | 2024-01-28 17:07 | PC.NURSE ---
Day shift: Notified MD Peña that patient is persistently rating his pain 7+/10, despite oral and IV dilaudid. Requested 4mg PO dilaudid (rather than 2mg). Patient reported that this decreased his pain to 6/10. Pt up ambulating the halls independently. Will continue to monitor.
[2024-01-28 18:01] VITALS: BP 117/81; PULSE 67; RESP 18; TEMP 36.5; O2SAT 97
[2024-01-28 20:08] VITALS: BP 123/83; PULSE 77; RESP 18; TEMP 36.4; O2SAT 98
--- NOTE | 2024-01-28 23:19 | PC.NURSE ---
Pt iv became infiltrated tonight as he was getting a dose of 1 mg dilaudid ivp, iv remove and not restarted as the plan is for patient to go home in the am. Pt now taking oral dilaudid 4 mg every 4 hours some relief, pt still not able to sleep. BT are present in all quads, passing flatus and stools. pt states abdomen still feels distended, pt ambulated in the hallway at the beginning of the shift independently with the FWW.
[2024-01-29] MEDS: HYDROMORPHONE 2 MG TABLET 4 MG PO ×4 (00:21→12:37)
[2024-01-29] MEDS: ACETAMINOPHEN 325 MG TABLET 650 MG PO ×2 (04:32→10:07)
[2024-01-29 08:00] VITALS: BP 116/75; PULSE 64; RESP 14; TEMP 36.2; O2SAT 93
[2024-01-29] MEDS: FAMOTIDINE 20 MG TABLET PO (08:27)
[2024-01-29] MEDS: CELECOXIB 200 MG CAPSULE PO (08:27)
[2024-01-29] MEDS: methocarbamoL 500 MG TABLET PO ×2 (08:27→12:36)
[2024-01-29] MEDS: PREGABALIN 75 MG CAPSULE PO (08:27)
--- NOTE | 2024-01-29 12:51 | P.DS_ITS ---
History of Present Illness History of Present Illness Chief complaint: Lap-assisted sigmoid colon resection Discharge Providers Provider Date of admission: 01/23/24 06:01 Discharge Date: 01/29/24 Primary care physician: Michelle Rayo MD Discharge provider: Garrett Peña MD Summary Hospital Course Discharge Diagnosis: Sigmoid diverticulitis with abscess Hospital Course: Patient underwent laparoscopic converted open sigmoid colectomy. Required high amounts of narcotic pain medication to achieve adequate pain control prior to discharge. Status at Discharge Cognitive/behavioral status at discharge: oriented Functional status at discharge: independent ambulation Overall status at discharge: patient is back to baseline Time Spent with Patient Time spent: Greater than 30 minutes Exam Vital Signs (past 8 hours): - 01/29/24 08:00 Temperature 97.2 F L Pulse Rate 64 Respiratory Rate 14 Blood Pressure 116/75 Pulse Oximetry 93 Oxygen Flow Rate 0 Fraction of Inspired Oxygen 28 Oxygen Delivery Method Room Air Oxygen Flow Rate 0 Narrative Exam Narrative: Dressing removed, incisions clean dry and intact. Objective Labs 01/24/24 06:13 01/24/24 06:13 [facility] Medical History (Updated 01/12/24 @ 14:49 by Jazzmine Pollock RN) History of COVID-19 (~2020) Diverticulitis Vasovagal syncope Depressive disorder Prostatitis CHRISTINA (obstructive sleep apnea) Surgical History (Updated 01/12/24 @ 14:15 by Jazzmine Pollock RN) H/O removal of cyst H/O vasectomy History of lumbar spinal fusion (2019) History of lumbar spinal fusion (2017) Hx of colonoscopy (11/27/23) Hx of cholecystectomy (2019) Social History household members: spouse and children Smoking Status: Former smoker alcohol intake: former Discharge Assessment & Plan Assessment and Plan Assessment: Perforated diverticulitis with abscess Plan of Treatment: Underwent successful surgery. Discharge home with multimodal pain management. Instructed that he and his we will need to know how to use naloxone, as he will not be aware if he has overdose. Discharge Plan Discharge Plan Patient Disposition: Home Discharge orders & Medications Prescriptions: New hydromorphone 2 mg Tablet 2 mg PO Q4HR PRN (Reason: Pain, Severe (7-10)) 7 Days Qty: 35 0RF Rx Instructions: May take up to 2 tablets at a time, but please taper back as pain improves. Keep naloxone with you at all time and instruct people who you are with on how to use naloxone if you stop breathing. pregabalin [Lyrica] 75 mg Capsule 75 mg PO BID 30 Days Qty: 60 0RF acetaminophen 325 mg Tablet 650 mg PO Q6H 30 Days Qty: 240 0RF celecoxib [Celebrex] 200 mg Capsule 200 mg PO BID 30 Days Qty: 60 0RF methocarbamol 500 mg Tablet 500 mg PO QID 30 Days Qty: 120 0RF naloxone [Narcan] 4 mg/actuation spray,non-aerosol 4 mg intranasal Q3M PRN (Reason: opioid overdose) Qty: 2 0RF Rx Instructions: spray 1 dose into ONE nostril; alternate nostrils w each dose until help arrives lidocaine 5 % Adhesive Patch,Medicated 1 patch topical DAILY 14 Days Qty: 14 3RF Continued pantoprazole 40 mg tablet,delayed release (DR/EC) 40 mg PO DAILY multivitamin [Men's Multi-Vitamin] Tablet 1 tab PO DAILY Follow up/Referrals: Michelle Rayo MD [Primary Care Provider] - Diet/Activity/Treatments Diet: Regular Skin/Wound/Dressing Care Report to your healthcare provider any signs of infection, such as:: chills, fever, night sweats, increased pain, unusual drainage and unusual redness Visit Report/Discharge Packet Instructions: DI for Colectomy Stand Alone Forms: Patient Portal/API, Stroke Signs & Symptoms, Surgery Discharge Discharge Data Primary Care Provider: Michelle Rayo Quality VTE Deep Vein Thrombosis/Pulmonary Embolism Present on Admission: No
--- NOTE | 2024-01-29 13:47 | CM.DPC ---
DCP Discharge Home Per Surgeon, pt's pain seems managed and has been ambulating the halls with FWW and switched to PO meds and having flatus and small bm and medically stable to d/c home with spouse and outpt f/u and no identified barriers to discharge. Per RN, no concerns noted at this time. MANDIE Santamaria
--- NOTE | 2024-01-29 13:49 | PC.NURSE ---
Day shift: Discharge instructions gone over with patient and patient's spouse. All questions answered, patient stated understanding. No PIV access or tele. All belongings with patient. PCT Mary Grace escorted patient to exit.
== END 2024-01-29 13:40 | disposition home or self-care (01) | DRG 331 ==
PROVIDERS: Nurse Anesthetist, Certified Registered; Admitting Provider Surgery; Referring Provider Surgery; Visit Provider Surgery
PROC: 0DTE0ZZ Resection of Large Intestine, Open Approach (ICD-10-PCS; principal; 2024-01-23 09:00)
DX: K57.20 Diverticulitis of large intestine with perforation and abscess without bleeding (principal); G47.33 Obstructive sleep apnea (adult) (pediatric); Z87.891 Personal history of nicotine dependence
CPT/HCPCS: 36415; 74177; 80048; 85014; 85018; 85025; A9270; C9290; J0330; J0690; J0744; J1171; J2250; J2405; J2704; J3010; J3490; P9045; Q9967

== ENCOUNTER 2024-03-01 11:21 | Inpatient (IN) | payer OTHER, SELFPAY ==
[2024-01-23 15:18] VITALS: BMI 37.2
[2024-03-01] VITALS (10 sets, daily range): BP systolic 120–154; BP diastolic 67–101; PULSE 75–95; RESP 17–19; TEMP 36.4–36.8; O2SAT 94–99; BMI 38.1; BMI 37.3
--- NOTE | 2024-03-01 12:11 | DI.CT.S_ITS ---
PROCEDURE: CT ABDOMEN PELVIS W CON INDICATIONS: post op coloectomy with increased pain TECHNIQUE: After the administration of intravenous contrast, axial sections acquired from the lung bases to the pubic symphysis. Coronal and sagittal reformats were performed. For radiation dose reduction, the following was used: automated exposure control, adjustment of mA and/or kV according to patient size. COMPARISON: [facility], CT, CT ABDOMEN PELVIS W CON, 01/26/2024, 17:55. FINDINGS: Image quality: Diagnostic. Lower Chest: No significant findings. ABDOMEN: Liver: No solid mass. Hepatic steatosis. Gallbladder: Absent. Biliary ducts: No biliary dilation. Pancreas: No ductal dilation. Spleen: Size is within normal limits. Adrenal Glands: No adrenal nodules. Kidneys and Ureters: No hydronephrosis. No solid mass. No complex renal cystic lesion which requires follow up. Stomach and Bowel: Anastomotic sutures within the sigmoid colon. There is a small collection adjacent to the anastomotic sutures posteriorly measuring 2.1 x 1.4 x 1.7 centimeters (2/119). Diverticulosis is present. Inflammatory changes are seen surrounding the sigmoid colon. Questionable collection adjacent to the small bowel measuring 1.8 centimeters (2/16 versus small focus of fat necrosis. Peritoneum: No abnormal intraperitoneal fluid. No free air. Ventral Wall: No significant ventral hernia. Abdominal Nodes: No retroperitoneal or mesenteric adenopathy by size criteria. Vessels: Aorta and inferior vena cava are normal in size. PELVIS: Pelvic Organs: Unremarkable. Bladder: No bladder wall thickening, accounting for underdistention. Pelvic Nodes: No enlarged lymph nodes. Miscellaneous: No inguinal hernias are seen. Bones: No aggressive osseous abnormality. L4 through S1 posterior spinal fixation. IMPRESSION: 1. Anastomotic sutures within the sigmoid colon. There is a small collection adjacent to the sutures measuring up to 2.1 centimeters. Contained perforation is in the differential. 2. Diverticulosis is present. Inflammatory changes are noted within the pelvis, unclear if this is secondary to the contained perforation versus superimposed diverticulitis. 3. Questionable 1.8 centimeter collection versus small area of fat necrosis adjacent to a loop of small bowel in the anterior pelvis. 4. Hepatic steatosis. Dictated by: Timi Brock M.D. on 03/01/2024 at 12:54 Approved by: Timi Brock M.D. on 03/01/2024 at 13:03
[2024-03-01] MEDS: HYDROMORPHONE 1 MG INJ IV ×4 (12:35→23:08)
[2024-03-01] MEDS: ONDANSETRON 4 MG/2 ML INJ IV (12:35)
[2024-03-01 12:38] LABS: Add Manual Diff / Slide Review NO; Basophils Absolute Auto 100 /uL (0-100); Basophils Percent Auto 0.7 % (0-2); Eosinophils Absolute Auto 100 /uL (0-450); Eosinophils Percent Auto 1.2 % (2-4); Hematocrit 39.7 % (41-53); Hemoglobin 13.2 g/dL (13.5-17.5); Lymphocytes Absolute Auto 2400 /uL (1100-4500); Lymphocytes Percent Auto 25.1 % (25-40); Mean Corpuscular HGB Conc 33.2 % (30-36); Mean Corpuscular Hemoglobin 27.3 PG (26-34); Mean Corpuscular Volume 82.1 fL (80-100); Monocytes Absolute Auto 600 /uL (0-900); Monocytes Percent Auto 6.2 % (3-14); Neutrophils Absolute Auto 6500 /uL (1500-7000); Neutrophils Percent Auto 66.8 % (50-75); Platelet Count 266 X10^3/uL (150-400); Red Blood Cell Count 4.84 X10^6/uL (4.5-5.9); Red Cell Distribution Width 14.9 % (11.6-14.8); White Blood Cell Count 9.7 X10^3/uL (4.5-11.0)
[2024-03-01 12:51] LABS: Alanine Aminotransferase 37 IU/L (<50); Albumin 4.7 g/dL (3.5-5.0); Albumin Globulin Ratio 1.3 (1.0-2.8); Alkaline Phosphatase 68 U/L (38-126); Aspartate Aminotransferase 29 IU/L (17-59); BUN Creatinine Ratio 14.6 (6-22); Bilirubin Total 0.6 mg/dL (0.2-1.3); Blood Urea Nitrogen 14 mg/dL (9-20); Calcium 9.3 mg/dL (8.4-10.2); Carbon Dioxide 25 mmol/L (22-32); Chloride 106 mmol/L (98-107); Estimated Glomerular Filt Rate > 60 mL/min (>60); Globulin 3.5 g/dL (1.7-4.1); Glucose 91 mg/dL (70-100); HEMOLYSIS < 15 (0-50); Lipase 70 U/L (23-300); Potassium 4.2 mmol/L (3.4-5.1); Sodium 141 mmol/L (137-145); Total Protein 8.2 g/dL (6.3-8.2)
--- NOTE | 2024-03-01 13:12 | ED_ITS ---
HPI - Abdominal Pain General Chief Complaint: Abdominal Pain Stated Complaint: post op issues, sharp pain in rectum, abnormal BM Time Seen by Provider: 03/01/24 12:11 Source: patient Mode of arrival: Ambulatory History of Present Illness HPI narrative: Patient is a 39-year-old male who had a lap assisted sigmoid colon resection secondary to sigmoid diverticulitis with an abscess, he was admitted on January 22 and discharged on January 28 continues to have rectal pain. He says that after surgery things actually went back to normal he has been doing well he does not have any nausea or vomiting. However over the last 1 week he is already having increasing pain pain is quite severe shooting up from his rectum into his bladder has a extremely painful bowel movements as well no fever chills nausea or vomiting. Related Data Home Medications Medication Instructions Recorded Confirmed pantoprazole 40 mg tablet,delayed 40 mg PO DAILY 11/26/23 02/05/24 release multivitamin 1 tab PO DAILY 01/23/24 03/01/24 celecoxib 200 mg capsule 200 mg PO DAILY 03/01/24 03/01/24 methocarbamol 500 mg tablet mg 03/01/24 pregabalin 75 mg capsule mg 03/01/24 testosterone cypionate 200 mg/mL IM 03/01/24 intramuscular oil Previous Rx's Medication Instructions Recorded lidocaine 5 % topical patch 1 patch topical DAILY 14 days #14 01/29/24 ea naloxone 4 mg/actuation nasal 4 mg intranasal Q3M PRN opioid 01/29/24 spray (Narcan) overdose #2 ea hydromorphone 2 mg tablet 2 mg PO Q6H PRN pain #10 tabs 02/05/24 (Dilaudid) Allergies Allergy/AdvReac Type Severity Reaction Status Date / Time bee venom protein (honey bee) Allergy Unknown Anaphylaxis Verified 03/01/24 11:56 [BEE VENOM PROTEIN (HONEY as a child BEE)] Patient History Medical History History of COVID-19 (~2020) Diverticulitis Vasovagal syncope Depressive disorder Prostatitis CHRISTINA (obstructive sleep apnea) Surgical History H/O removal of cyst H/O vasectomy History of lumbar spinal fusion (2019) History of lumbar spinal fusion (2017) Hx of colonoscopy (11/27/23) Hx of cholecystectomy (2019) Social History household members: spouse and children Smoking Status: Former smoker alcohol intake: former Smoking Status: Former smoker alcohol intake frequency: a few times a week Exam Initial Vital Signs Initial Vital Signs: Vital Signs Temperature 97.7 F 03/01/24 11:56 Pulse Rate 95 H 03/01/24 11:56 Respiratory Rate 18 03/01/24 11:56 Blood Pressure 154/100 H 03/01/24 11:56 Pulse Oximetry 99 03/01/24 11:56 Oxygen Delivery Method Room Air 03/01/24 11:56 GENERAL: [Well-appearing, well-nourished] and in [no acute] distress. HEENT: Head atraumatic,EOMI, pupils reactive, face symmetric, [moist] mucous membranes [EARS:] [Tympanic membranes visualized, no erythema or bulging, no hemotympanum] [PHARYNX:] [No erythema, no tonsillar exudate, no cervical lymphadenopathy] CARDIOVASCULAR: Regular rate and rhythm without murmurs, rubs or gallops. RESPIRATORY: Breath sounds equal bilaterally, no wheezes rales or rhonchi. ABDOMEN: Soft, incision sites clean and dry no significant distention does have some decreased bowel sounds EXTREMITIES: Normal range of motion, no clubbing or edema. Neurovascularly intact NEUROLOGICAL: Alert and oriented x4.Normal gait and speech. Cranial nerves II through XII grossly intact. SKIN: Warm, dry, no laceration, no petechiae, no rashes or lesions. Course Orders Ordered: ED Orders 03/01/24 12:11 CT abdomen pelvis w con Stat 03/01/24 12:25 Complete Blood Count AUTO DIFF Stat Comprehensive Metabolic Panel Stat Lactate (Lactic Acid) Stat Lipase Stat 03/01/24 13:47 Consult to General Surgery Stat 03/01/24 14:06 Blood Culture Stat Acetaminophen (Acetaminophen 325 Mg Tablet) 650 mg PO Q6H PRN PRN Reason: Fever/Mild Pain (1-3) Heparin Sodium (Porcine) (Heparin 5,000 Unit/Ml Vial) 5,000 unit SUBCUT BID LUIZ Hydromorphone HCl (Hydromorphone 2 Mg Inj) 1 mg IV Q2H PRN PRN Reason: Pain, Severe (7-10) Last Admin: 03/01/24 16:34 Dose: 1 mg Documented By: WALLACE Piperacillin Sod/Tazobactam (Sod 3.375 gm/ Sodium Chloride) 100 mls @ 25 mls/hr IV Q8H LUIZ Last Admin: 03/01/24 17:47 Dose: 25 mls/hr Documented By: WALLACE Sodium Chloride (Normal Saline 0.9%) 1,000 mls @ 100 mls/hr IV CONT LUIZ Last Admin: 03/01/24 16:34 Dose: 100 mls/hr Documented By: WALLACE Magnesium Hydroxide (Magnesium Hydroxide 30 Ml Udc) 30 ml PO DAILY PRN PRN Reason: Constipation Naloxone HCl (Naloxone 0.4 Mg/Ml Vial) 0.2 mg IV Q2MIN PRN PRN Reason: Opiate Reversal Ondansetron HCl (Ondansetron 4 Mg/2 Ml Inj) 4 mg IV NOW PRN PRN Reason: Nausea And Vomiting Last Admin: 03/01/24 12:35 Dose: 4 mg Documented By: YANNA Ondansetron HCl (Ondansetron 4 Mg Odt) 4 mg PO NOW PRN PRN Reason: Nausea And Vomiting Ondansetron HCl (Ondansetron 4 Mg/2 Ml Inj) 4 mg IV Q8HR PRN PRN Reason: Nausea And Vomiting Oxycodone HCl (Oxycodone Ir 5 Mg Tablet) 5 mg PO Q3H PRN PRN Reason: Pain, Moderate (4-6) Last Admin: 03/01/24 16:18 Dose: 5 mg Documented By: WALLACE Discontinued Medications Hydromorphone HCl (Hydromorphone 1 Mg Inj) 1 mg IV NOW ONE Stop: 03/01/24 12:16 Last Admin: 03/01/24 12:35 Dose: 1 mg Documented By: YANNA Hydromorphone HCl (Hydromorphone 1 Mg Inj) 1 mg IV NOW ONE Stop: 03/01/24 13:44 Last Admin: 03/01/24 14:04 Dose: 1 mg Documented By: YANNA Piperacillin Sod/Tazobactam (Sod 4.5 gm/ Sodium Chloride) 100 mls @ 200 mls/hr IV NOW ONE Stop: 03/01/24 13:48 Last Infusion: 03/01/24 14:36 Dose: Infused Documented By: Admin: 03/01/24 14:03 Dose: 200 mls/hr Documented By: YANNA Ketorolac Tromethamine (Ketorolac 30 Mg/Ml Vial) 15 mg IV NOW ONE Stop: 03/01/24 13:44 Last Admin: 03/01/24 14:04 Dose: 15 mg Documented By: YANNA Vital Signs Vital signs: Vital Signs - 8 hr 03/01/24 11:56 03/01/24 12:21 03/01/24 12:30 Temperature 97.7 F Pulse Rate 95 H 89 90 Respiratory Rate 18 Blood Pressure 154/100 H Pulse Oximetry 99 97 98 Oxygen Delivery Method Room Air 03/01/24 13:00 03/01/24 13:19 03/01/24 13:19 Temperature Pulse Rate 82 87 Respiratory Rate Blood Pressure 132/79 Pulse Oximetry 96 98 Oxygen Delivery Method 03/01/24 13:30 03/01/24 13:30 Temperature Pulse Rate 75 Respiratory Rate Blood Pressure 121/73 Pulse Oximetry 94 Oxygen Delivery Method MDM - Abdominal Pain Lab Data 03/01/24 12:25 03/01/24 12:25 Labs: Lab Results 03/01/24 Range/Units 12:25 WBC 9.7 (4.5-11.0) X10^3/uL RBC 4.84 (4.5-5.9) X10^6/uL Hgb 13.2 L (13.5-17.5) g/dL Hct 39.7 L (41-53) % MCV 82.1 (80-100) fL MCH 27.3 (26-34) PG MCHC 33.2 (30-36) % RDW 14.9 H (11.6-14.8) % Plt Count 266 (150-400) X10^3/uL Neut % (Auto) 66.8 (50-75) % Lymph % (Auto) 25.1 (25-40) % [place] % (Auto) 6.2 (3-14) % Eos % (Auto) 1.2 L (2-4) % Baso % (Auto) 0.7 (0-2) % Neut # (Auto) 6500 (2259-4233) /uL Lymph # (Auto) 2400 (7327-7337) /uL [place] # (Auto) 600 (0-900) /uL Eos # (Auto) 100 (0-450) /uL Baso # (Auto) 100 (0-100) /uL Sodium 141 (137-145) mmol/L Potassium 4.2 (3.4-5.1) mmol/L Chloride 106 (98-107) mmol/L Carbon Dioxide 25 (22-32) mmol/L BUN 14 (9-20) mg/dL Creatinine 0.96 (0.66-1.25) mg/dL Estimated GFR > 60 (>60) mL/min BUN/Creatinine Ratio 14.6 (6-22) Glucose 91 (70-100) mg/dL Lactate 0.9 (0.7-2.1) mmol/L Calcium 9.3 (8.4-10.2) mg/dL Total Bilirubin 0.6 (0.2-1.3) mg/dL AST 29 (17-59) IU/L ALT 37 (<50) IU/L Alkaline Phosphatase 68 (38-126) U/L Total Protein 8.2 (6.3-8.2) g/dL Albumin 4.7 (3.5-5.0) g/dL Globulin 3.5 (1.7-4.1) g/dL Albumin/Globulin Ratio 1.3 (1.0-2.8) Lipase 70 (23-300) U/L Point of care testing: Urine Dip Bedside Urine Glucose Negative Bedside Urine Bilirubin - Negative Bedside Urine Ketone - Negative Urine Specific [place] 1.015 Bedside Urine Occult Blood - Negative Bedside Urine pH 6.0 Bedside Urine Protein - Negative Bedside Urine Urobilinogen - Negative Bedside Urine Nitrite - Negative Bedside Urine Leukocytes - Negative Esterase Imaging Data CT scan - abdomen/pelvis: Radiologist's Impression: PROCEDURE: CT ABDOMEN PELVIS W CON INDICATIONS: post op coloectomy with increased pain TECHNIQUE: After the administration of intravenous contrast, axial sections acquired from the lung bases to the pubic symphysis. Coronal and sagittal reformats were performed. For radiation dose reduction, the following was used: automated exposure control, adjustment of mA and/or kV according to patient size. COMPARISON: [facility], CT, CT ABDOMEN PELVIS W CON, 01/26/2024, 17:55. FINDINGS: Image quality: Diagnostic. Lower Chest: No significant findings. ABDOMEN: Liver: No solid mass. Hepatic steatosis. Gallbladder: Absent. Biliary ducts: No biliary dilation. Pancreas: No ductal dilation. Spleen: Size is within normal limits. Adrenal Glands: No adrenal nodules. Kidneys and Ureters: No hydronephrosis. No solid mass. No complex renal cystic lesion which requires follow up. Stomach and Bowel: Anastomotic sutures within the sigmoid colon. There is a small collection adjacent to the anastomotic sutures posteriorly measuring 2.1 x 1.4 x 1.7 centimeters (2/119). Diverticulosis is present. Inflammatory changes are seen surrounding the sigmoid colon. Questionable collection adjacent to the small bowel measuring 1.8 centimeters (2/16 versus small focus of fat necrosis. Peritoneum: No abnormal intraperitoneal fluid. No free air. Ventral Wall: No significant ventral hernia. Abdominal Nodes: No retroperitoneal or mesenteric adenopathy by size criteria. Vessels: Aorta and inferior vena cava are normal in size. PELVIS: Pelvic Organs: Unremarkable. Bladder: No bladder wall thickening, accounting for underdistention. Pelvic Nodes: No enlarged lymph nodes. Miscellaneous: No inguinal hernias are seen. Bones: No aggressive osseous abnormality. L4 through S1 posterior spinal fixation. IMPRESSION: 1. Anastomotic sutures within the sigmoid colon. There is a small collection adjacent to the sutures measuring up to 2.1 centimeters. Contained perforation is in the differential. 2. Diverticulosis is present. Inflammatory changes are noted within the pelvis, unclear if this is secondary to the contained perforation versus superimposed diverticulitis. 3. Questionable 1.8 centimeter collection versus small area of fat necrosis adjacent to a loop of small bowel in the anterior pelvis. 4. Hepatic steatosis. Dictated by: Timi Brock M.D. on 03/01/2024 at 12:54 MDM Narrative Medical decision making narrative: MDM CC: Abdominal pain rectal pain Complicating co-morbidities: Recent colectomy for diverticulitis Medical records reviewed: Admission January 22 through the Differential considered: Surgical complication abscess perforation Exam documented above, pertinent findings include: Alert 9-year-old male actually tender on his left lower quadrant. Incision sites seem to be healing have some mild suprapubic pain as well Lab Test results independently reviewed as above. Pertinent findings: CBC does not show any leukocytosis WBCs 9.7 no anemia CMP no electrolyte abnormality no LUIS ARMANDO Lactate 0.9 Bilirubin liver enzymes within normal limits Imaging studies independently reviewed: CT showed small collection of fluid 2.1 cm next to the sutures there is also 1.8 cm collection possible fat necrosis Consultations: Dr. Mtz, surgery updated patient's symptoms test results reports no surgery needed but does need IV antibiotics and admission to the hospitalist Dr. Nath updated on symptoms test results and accepts patient Treatments: Zosyn Dilaudid Toradol Re-evaluations: Pain is better after Dilaudid Discussion: Patient 39-year-old male who recently had colectomy secondary to perforated diverticulitis. He was having new pain. CT does show 2 areas of concern both small about 2 cm each. 1 is fluid collection near the sutures other is a possible necrotic lesion. He has no leukocytosis normal lactic acid blood cultures are pending but he was given a dose of Zosyn. Surgery recommend supportive care at this time in the hospitalist kindly accepted Discharge Plan Departure Patient Disposition: Admitted as Observation Clinical Impression: Abdominal abscess, Diverticulitis Admit Date/Time: 03/01/24 13:53 Admit Provider: Winston Nath
[2024-03-01 14:01] LABS: Lactate (Lactic Acid) 0.9 mmol/L (0.7-2.1)
[2024-03-01] MEDS: PIPERACILLIN/TAZO 4.5 GM in SODIUM CHLORIDE 0.9% 100 ML IV (14:03)
[2024-03-01] MEDS: KETOROLAC 30 MG/ML VIAL 15 MG IV (14:04)
--- NOTE | 2024-03-01 15:17 | P.HP_ITS ---
History of Present Illness History of Present Illness Date Patient Seen: 03/01/24 Time Patient Seen: 15:24 Chief complaint: post op issues, sharp pain in rectum, abnormal BM Narrative: The patient is a 39-year-old male who is status post a sigmoid colectomy for recurrent smoldering sigmoid diverticulitis in January. The patient underwent a laparoscopic procedure which was converted to open. He had a relatively prolonged postoperative course and ultimately discharge. He was had persistent incisional pain with slow improvement. Over the last several days, he was developed pressure in the rectum and pain with defecation as well as pressure with urination and discomfort with urination. He denies any rectal bleeding, or mucus. He also denies any hematuria, or hazy colored urine. There have been no fevers or chills. With each day, his rectal pain has become more persistent after defecation and today it did not alleviate at all. Imaging here indicated a possible small abscess in the operative area. This appears to be too small for percutaneous drainage. The case was discussed with the surgeon on-call who recommended NPO status and IV antibiotics for several days, i.e. treat like a diverticulitis. The patient denies anorexia, poor appetite, nausea, or vomiting. He does take testosterone supplements which is new. He was also somewhat overweight with a BMI of 38. He denies any active dehiscence of his abdominal wounds at this time. He also denies any chest pain, dyspnea, or rhinorrhea. [facility] Medical History History of COVID-19 (~2020) Diverticulitis Vasovagal syncope Depressive disorder Prostatitis CHRISTINA (obstructive sleep apnea) Surgical History H/O removal of cyst H/O vasectomy History of lumbar spinal fusion (2019) History of lumbar spinal fusion (2017) Hx of colonoscopy (11/27/23) Hx of cholecystectomy (2019) Social History household members: spouse and children Smoking Status: Former smoker alcohol intake: former Meds Home Medications and Allergies Home Medications Medication Instructions Recorded Confirmed Type pantoprazole 40 mg tablet,delayed 40 mg PO DAILY 11/26/23 02/05/24 History release multivitamin 1 tab PO DAILY 01/23/24 03/01/24 History lidocaine 5 % topical patch 1 patch topical DAILY 14 days #14 01/29/24 02/05/24 Rx ea naloxone 4 mg/actuation nasal 4 mg intranasal Q3M PRN opioid 01/29/24 02/05/24 Rx spray (Narcan) overdose #2 ea hydromorphone 2 mg tablet 2 mg PO Q6H PRN pain #10 tabs 02/05/24 02/05/24 Rx (Dilaudid) celecoxib 200 mg capsule 200 mg PO DAILY 03/01/24 03/01/24 History methocarbamol 500 mg tablet mg 03/01/24 History pregabalin 75 mg capsule mg 03/01/24 History testosterone cypionate 200 mg/mL IM 03/01/24 History intramuscular oil Allergies Allergy/AdvReac Type Severity Reaction Status Date / Time bee venom protein (honey bee) Allergy Unknown Anaphylaxis Verified 03/01/24 11:56 [BEE VENOM PROTEIN (HONEY as a child BEE)] Review of Systems Review of Systems Narrative: All else reviewed and otherwise unremarkable except as noted in the history and physical. Exam Vital Signs (past 8 hours): - 03/01/24 11:56 03/01/24 12:21 03/01/24 12:30 Temperature 97.7 F Pulse Rate 95 H 89 90 Respiratory Rate 18 Blood Pressure 154/100 H Pulse Oximetry 99 97 98 Oxygen Delivery Method Room Air 03/01/24 13:00 03/01/24 13:19 03/01/24 13:19 Temperature Pulse Rate 82 87 Respiratory Rate Blood Pressure 132/79 Pulse Oximetry 96 98 Oxygen Delivery Method 03/01/24 13:30 03/01/24 13:30 03/01/24 14:00 Temperature Pulse Rate 75 82 Respiratory Rate Blood Pressure 121/73 Pulse Oximetry 94 94 Oxygen Delivery Method 03/01/24 14:00 03/01/24 14:30 03/01/24 14:30 Temperature Pulse Rate 78 Respiratory Rate Blood Pressure 120/88 124/67 Pulse Oximetry 95 Oxygen Delivery Method Oxygen Delivery Method Room Air Narrative Exam Narrative: NAD, alert and oriented, fluent speech, calm. Normocephalic skull, EOMI, anicteric sclera, symmetric pupils. Oropharynx unremarkable, no droop. Neck supple, midline trachea, no adenopathy. Lungs clear, normal rate and effort. Heart regular, no murmur gallop or rub. Abdomen is soft, non distended and non tender. There is some tenderness in the left lower quadrant without guarding or rebound. No masses out palpated. Extremities are free of edema. Skin is free of rash or lesions. Joints are not swollen or deformed. Judgment appears to be normal. All abdominal wounds appeared to be well healed. The anus is examined there are no obvious external hemorrhoids noted. Objective Imaging CT scan - abdomen: Radiologist's impression: 1. Anastomotic sutures within the sigmoid colon. There is a small collection adjacent to the sutures measuring up to 2.1 centimeters. Contained perforation is in the differential. 2. Diverticulosis is present. Inflammatory changes are noted within the pelvis, unclear if this is secondary to the contained perforation versus superimposed diverticulitis. 3. Questionable 1.8 centimeter collection versus small area of fat necrosis adjacent to a loop of small bowel in the anterior pelvis. 4. Hepatic steatosis. Labs 03/01/24 12:25 03/01/24 12:25 Labs: Laboratory Results - last 24 hr 03/01/24 12:25 WBC 9.7 RBC 4.84 Hgb 13.2 L Hct 39.7 L MCV 82.1 MCH 27.3 MCHC 33.2 RDW 14.9 H Plt Count 266 Neut % (Auto) 66.8 Lymph % (Auto) 25.1 [place] % (Auto) 6.2 Eos % (Auto) 1.2 L Baso % (Auto) 0.7 Neut # (Auto) 6500 Lymph # (Auto) 2400 [place] # (Auto) 600 Eos # (Auto) 100 Baso # (Auto) 100 Sodium 141 Potassium 4.2 Chloride 106 Carbon Dioxide 25 BUN 14 Creatinine 0.96 Estimated GFR > 60 BUN/Creatinine Ratio 14.6 Glucose 91 Lactate 0.9 Calcium 9.3 Total Bilirubin 0.6 AST 29 ALT 37 Alkaline Phosphatase 68 Total Protein 8.2 Albumin 4.7 Globulin 3.5 Albumin/Globulin Ratio 1.3 Lipase 70 Assessment & Plan Assessment & Plan narrative: 1. Diverticulitis, present on admission and active. 2. Obesity class 2, present on admission and active. Plan: -discussed with surgery -NPO until about Monday -IV fluids -IV Zosyn We will treat this as though it is diverticulitis, this may be a micro per for associated with the surgery that remains unclear by imaging. However clinically if the patient response to antibiotics and treatment will be the same. Inpatient status, anticipate 2 midnights of hospital care. Full resuscitation Time-Based Coding :: 35 min spent with patient and on the chart (including review of chart, obtaining history, exam, reviewing outside data, placing orders, documenting exam and treatment plan, and counseling patient) on 03/01. Quality MIPS - Admit I confirm the patient?s Advance Care Plan is present, Code status is documented, Surrogate decision maker is in patient?s record [If Yes, STOP here]: Yes MIPS - Meds 'Current medications' to include all prescriptions, [id number] products, herbals, cannabis/cannabidiol products, and vitamin/mineral/dietary (nutritional) supplements. I have utilized all available resources to obtain, update, or review the patient?s current medications. [If Yes, STOP here]: Yes
[2024-03-01] MEDS: OXYCODONE IR 5 MG TABLET PO (16:18)
[2024-03-01] MEDS: HYDROMORPHONE 2 MG INJ 1 MG IV ×2 (16:34→19:06)
[2024-03-01] MEDS: SODIUM CHLORIDE 0.9% 1,000 ML 100 ML IV (16:34)
[2024-03-01] MEDS: PIPERACILLIN/TAZO 3.375 GM in SODIUM CHLORIDE 0.9% 100 ML IV (17:47)
[2024-03-01] MEDS: HEPARIN 5,000 UNIT/ML VIAL 5000 UNIT SUBCUT (20:51)
[2024-03-02] MEDS: HYDROMORPHONE 1 MG INJ IV ×9 (01:31→22:56)
[2024-03-02] MEDS: PIPERACILLIN/TAZO 3.375 GM in SODIUM CHLORIDE 0.9% 100 ML IV ×3 (01:35→18:32)
[2024-03-02 05:38] LABS: Add Manual Diff / Slide Review NO; Basophils Absolute Auto 0 /uL (0-100); Basophils Percent Auto 0.3 % (0-2); Eosinophils Absolute Auto 100 /uL (0-450); Hematocrit 36.4 % (41-53); Hemoglobin 12.3 g/dL (13.5-17.5); Lymphocytes Absolute Auto 2000 /uL (1100-4500); Lymphocytes Percent Auto 23.7 % (25-40); Mean Corpuscular HGB Conc 33.7 % (30-36); Mean Corpuscular Hemoglobin 27.6 PG (26-34); Mean Corpuscular Volume 81.8 fL (80-100); Monocytes Absolute Auto 600 /uL (0-900); Neutrophils Absolute Auto 5900 /uL (1500-7000); Platelet Count 233 X10^3/uL (150-400); Red Blood Cell Count 4.45 X10^6/uL (4.5-5.9); Red Cell Distribution Width 15.1 % (11.6-14.8); White Blood Cell Count 8.6 X10^3/uL (4.5-11.0)
[2024-03-02 05:58] LABS: BUN Creatinine Ratio 14.3 (6-22); Blood Urea Nitrogen 14 mg/dL (9-20); Calcium 8.8 mg/dL (8.4-10.2); Carbon Dioxide 28 mmol/L (22-32); Chloride 103 mmol/L (98-107); Estimated Glomerular Filt Rate > 60 mL/min (>60); Glucose 89 mg/dL (70-100); HEMOLYSIS < 15 (0-50); Potassium 4.3 mmol/L (3.4-5.1); Sodium 138 mmol/L (137-145)
[2024-03-02] MEDS: ONDANSETRON 4 MG/2 ML INJ IV ×2 (05:59→12:52)
[2024-03-02] MEDS: SODIUM CHLORIDE 0.9% 1,000 ML 100 ML IV (07:57)
[2024-03-02 08:00] VITALS: BP 121/81; PULSE 68; RESP 16; TEMP 36.6; O2SAT 95
[2024-03-02] MEDS: ACETAMINOPHEN 325 MG TABLET 650 MG PO ×2 (09:00→16:45)
--- NOTE | 2024-03-02 12:02 | P.CONS_ITS ---
History of Present Illness Consult details Date Patient Seen: 03/02/24 Time Patient Seen: 12:07 Chief complaint: post op issues, sharp pain in rectum, abnormal BM Narrative: He had his sigmoidectomy last month, but started 2 weeks ago having major pain with pressure or pushing, with defecation and micturition, will check UA to r/o UTI, I was not impressed with the CT findings, hopefully he will CONTINUE to get better with current treatment, and we can feed him and send him home. I will follow and I WILL ORDER his diet when ready. Meds Home Medications and Allergies Home Medications Medication Instructions Recorded Confirmed Type pantoprazole 40 mg tablet,delayed 40 mg PO DAILY 11/26/23 03/01/24 History release multivitamin 1 tab PO DAILY 01/23/24 03/01/24 History lidocaine 5 % topical patch 1 patch topical DAILY 14 days #14 01/29/24 03/01/24 Rx ea naloxone 4 mg/actuation nasal 4 mg intranasal Q3M PRN opioid 01/29/24 03/01/24 Rx spray (Narcan) overdose #2 ea hydromorphone 2 mg tablet 2 mg PO Q6H PRN pain #10 tabs 02/05/24 03/01/24 Rx (Dilaudid) celecoxib 200 mg capsule 200 mg PO DAILY 03/01/24 03/01/24 History methocarbamol 500 mg tablet 500 mg PO PRN PRN Spasms 03/01/24 03/01/24 History pregabalin 75 mg capsule 75 mg PO DAILY 03/01/24 03/01/24 History testosterone cypionate 200 mg/mL IM 03/01/24 History intramuscular oil Allergies Allergy/AdvReac Type Severity Reaction Status Date / Time bee venom protein (honey bee) Allergy Unknown Anaphylaxis Verified 03/01/24 11:56 [BEE VENOM PROTEIN (HONEY as a child BEE)] Review of Systems Review of Systems ROS: Yes All systems reviewed with the patient and are negative except as otherwise documented Exam Vital Signs (past 8 hours): - 03/02/24 08:00 Temperature 97.8 F Pulse Rate 68 Respiratory Rate 16 Blood Pressure 121/81 Pulse Oximetry 95 Oxygen Flow Rate 0 Oxygen Delivery Method Room Air Oxygen Flow Rate 0 Narrative Exam Narrative: LLQ tender, MILDLY, no peritoneal signs. He tells me it is 30% better than yesterday. Objective Labs 03/02/24 05:10 03/02/24 05:10 Labs: Laboratory Results - last 24 hr 03/01/24 03/02/24 12:25 05:10 WBC 9.7 8.6 RBC 4.84 4.45 L Hgb 13.2 L 12.3 L Hct 39.7 L 36.4 L MCV 82.1 81.8 MCH 27.3 27.6 MCHC 33.2 33.7 RDW 14.9 H 15.1 H Plt Count 266 233 Neut % (Auto) 66.8 68.0 Lymph % (Auto) 25.1 23.7 L [place] % (Auto) 6.2 7.0 Eos % (Auto) 1.2 L 1.0 L Baso % (Auto) 0.7 0.3 Neut # (Auto) 6500 5900 Lymph # (Auto) 2400 2000 [place] # (Auto) 600 600 Eos # (Auto) 100 100 Baso # (Auto) 100 0 Sodium 141 138 Potassium 4.2 4.3 Chloride 106 103 Carbon Dioxide 25 28 BUN 14 14 Creatinine 0.96 0.98 Estimated GFR > 60 > 60 BUN/Creatinine Ratio 14.6 14.3 Glucose 91 89 Lactate 0.9 Calcium 9.3 8.8 Total Bilirubin 0.6 AST 29 ALT 37 Alkaline Phosphatase 68 Total Protein 8.2 Albumin 4.7 Globulin 3.5 Albumin/Globulin Ratio 1.3 Lipase 70 PFSH Medical History History of COVID-19 (~2020) Diverticulitis Vasovagal syncope Depressive disorder Prostatitis CHRISTINA (obstructive sleep apnea) Surgical History H/O removal of cyst H/O vasectomy History of lumbar spinal fusion (2019) History of lumbar spinal fusion (2018) Hx of colonoscopy (11/27/23) Hx of cholecystectomy (2019) Social History household members: spouse and children Tobacco & Substance Use Smoking Status: Former smoker alcohol intake: former Assessment & Plan Assessment and plan (1) Diverticulitis: Problem details: He had his sigmoidectomy last month, but started 2 weeks ago having major pain with pressure or pushing, with defecation and micturition, will check UA to r/o UTI, I was not impressed with the CT findings, hopefully he will CONTINUE to get better with current treatment, and we can feed him and send him home. I will follow and I WILL ORDER his diet when ready. Status: Acute Time-Based Coding :: [TOTAL MINUTES] spent with patient and on the chart (including review of chart, obtaining history, exam, reviewing outside data, placing orders, documenting exam and treatment plan, and counseling patient) on [DATE]. PROFEE Charge Codes Inpatient or Observation consultation: 20286
[2024-03-02 12:50] VITALS: BP 133/78; PULSE 76; RESP 17; TEMP 36.4; O2SAT 98
[2024-03-02] MEDS: OXYCODONE IR 5 MG TABLET PO (13:00)
[2024-03-02 16:43] VITALS: BP 106/79; PULSE 88
[2024-03-02] MEDS: PROCHLORPERAZINE 10 MG/2 ML VIAL 5 MG IV (16:43)
[2024-03-02 16:45] VITALS: TEMP 38
[2024-03-02 17:29] VITALS: TEMP 36.4
--- NOTE | 2024-03-02 17:51 | PM.PN.1 ---
Subjective Subjective Interval history: 39-year-old male who underwent sigmoid colectomy in January 25 for diverticulitis. He was admitted yesterday for an abscess versus contained perforation at anastomotic site. He was afebrile with normal white blood cell count. He was initiated on Zosyn for antibiotics. Today, he reports he has been having nausea and dry heaving. He states after his last episode of dry heaving, feels as though he emptied his stomach. He states he felt quite a bit better after that happen. He reports he only drank coffee yesterday and had eaten anything before coming into the hospital. He states he was having pain with passing gas and moving his bowels. He did have a BM today and states it felt perhaps very slightly less painful. Exam Vital Signs (past 8 hours): - 03/02/24 12:50 03/02/24 16:43 03/02/24 16:45 Temperature 97.6 F 100.4 F H Pulse Rate 76 88 Respiratory Rate 17 Blood Pressure 133/78 106/79 Pulse Oximetry 98 Oxygen Flow Rate 1 03/02/24 17:29 Temperature 97.6 F Pulse Rate Respiratory Rate Blood Pressure Pulse Oximetry Oxygen Flow Rate Oxygen Delivery Method Room Air Oxygen Flow Rate 1 Narrative Exam Narrative: GEN: Adult male, Alert and oriented x 3, NAD HEENT:NC, Face symmetric CHEST: Respiratory excursions symmetric, CTAB CV: RRR, no M/R/G ABD: Soft, tender to palpation in the left lower quadrant/ND, BT present in all 4 quadrants, incisions are healing well EXTR: warm, well perfused, no C/C/E SKIN: warm and dry, no rash NEURO: Alert and oriented x 3, nonfocal Objective Labs 03/02/24 05:10 03/02/24 05:10 Labs: Laboratory Results - last 24 hr 03/02/24 05:10 WBC 8.6 RBC 4.45 L Hgb 12.3 L Hct 36.4 L MCV 81.8 MCH 27.6 MCHC 33.7 RDW 15.1 H Plt Count 233 Neut % (Auto) 68.0 Lymph % (Auto) 23.7 L [place] % (Auto) 7.0 Eos % (Auto) 1.0 L Baso % (Auto) 0.3 Neut # (Auto) 5900 Lymph # (Auto) 2000 [place] # (Auto) 600 Eos # (Auto) 100 Baso # (Auto) 0 Sodium 138 Potassium 4.3 Chloride 103 Carbon Dioxide 28 BUN 14 Creatinine 0.98 Estimated GFR > 60 BUN/Creatinine Ratio 14.3 Glucose 89 Calcium 8.8 PFSH Medical History History of COVID-19 (~2020) Diverticulitis Vasovagal syncope Depressive disorder Prostatitis CHRISTINA (obstructive sleep apnea) Surgical History H/O removal of cyst H/O vasectomy History of lumbar spinal fusion (2019) History of lumbar spinal fusion (2018) Hx of colonoscopy (11/27/23) Hx of cholecystectomy (2019) Social History household members: spouse and children Smoking Status: Former smoker alcohol intake: former Assessment & Plan Assessment & Plan narrative: 1.??? Post-op abscess/contained perforation Continue zosyn therapy.? Pt was having increasing tenesmus.? Will ensure he is not having constipation once he is able to tolerate oral intake.? Will add Compazine for nausea if needed. Continue Zofran as needed. 2.??? Anemia Mild.? Improving. 3.??? Class 2 obesity Stable. BMI is 37. Code status Full Prophylaxis On heparin Disposition Home when better Time-Based Coding :: [TOTAL MINUTES] spent with patient and on the chart (including review of chart, obtaining history, exam, reviewing outside data, placing orders, documenting exam and treatment plan, and counseling patient) on [DATE]. Quality VTE Deep Vein Thrombosis/Pulmonary Embolism Present on Admission: No
[2024-03-02 19:00] VITALS: BP 136/84; PULSE 76; RESP 19; TEMP 37; O2SAT 99
[2024-03-03] MEDS: ACETAMINOPHEN 325 MG TABLET 650 MG PO ×2 (01:34→10:29)
[2024-03-03] MEDS: HYDROMORPHONE 1 MG INJ IV ×6 (01:34→23:06)
[2024-03-03] MEDS: PIPERACILLIN/TAZO 3.375 GM in SODIUM CHLORIDE 0.9% 100 ML IV ×3 (01:35→18:15)
[2024-03-03] MEDS: SODIUM CHLORIDE 0.9% 1,000 ML 100 ML IV ×3 (01:35→19:56)
[2024-03-03 06:18] LABS: Add Manual Diff / Slide Review NO; Basophils Absolute Auto 0 /uL (0-100); Basophils Percent Auto 0.3 % (0-2); Eosinophils Absolute Auto 200 /uL (0-450); Eosinophils Percent Auto 2.6 % (2-4); Hemoglobin 12.4 g/dL (13.5-17.5); Lymphocytes Absolute Auto 2400 /uL (1100-4500); Lymphocytes Percent Auto 27.6 % (25-40); Mean Corpuscular HGB Conc 33.6 % (30-36); Mean Corpuscular Hemoglobin 27.5 PG (26-34); Mean Corpuscular Volume 81.9 fL (80-100); Monocytes Absolute Auto 600 /uL (0-900); Monocytes Percent Auto 6.4 % (3-14); Neutrophils Absolute Auto 5500 /uL (1500-7000); Neutrophils Percent Auto 63.1 % (50-75); Platelet Count 245 X10^3/uL (150-400); Red Blood Cell Count 4.52 X10^6/uL (4.5-5.9); Red Cell Distribution Width 14.6 % (11.6-14.8); White Blood Cell Count 8.7 X10^3/uL (4.5-11.0)
[2024-03-03 06:24] LABS: Blood Urea Nitrogen 11 mg/dL (9-20); Calcium 8.9 mg/dL (8.4-10.2); Carbon Dioxide 24 mmol/L (22-32); Chloride 106 mmol/L (98-107); Estimated Glomerular Filt Rate > 60 mL/min (>60); Glucose 84 mg/dL (70-100); HEMOLYSIS < 15 (0-50); Potassium 4.1 mmol/L (3.4-5.1); Sodium 139 mmol/L (137-145)
[2024-03-03 07:00] VITALS: BP 115/78; PULSE 79; RESP 15; TEMP 36.8; O2SAT 93
[2024-03-03] MEDS: HEPARIN 5,000 UNIT/ML VIAL 5000 UNIT SUBCUT (08:48)
--- NOTE | 2024-03-03 09:55 | P.PN_ITS ---
Subjective Subjective Date Patient Seen: 03/03/24 Time Patient Seen: 09:56 Interval history: Acute diverticulitis, or anastomotic contained small leak?, NO leukocytosis, and improving symptoms, NO ABDOMINAL TENDERNESS AT ALL, but still having less symptoms, when he tried to move his bowels, and he could not.. I will feed him tomorrow, and follow. Exam Vital Signs (past 8 hours): - 03/03/24 07:00 Temperature 98.2 F Pulse Rate 79 Respiratory Rate 15 Blood Pressure 115/78 Pulse Oximetry 93 Oxygen Flow Rate 0 Oxygen Delivery Method Room Air Oxygen Flow Rate 0 Objective Labs 03/03/24 05:14 03/03/24 05:14 Labs: Laboratory Results - last 24 hr 03/03/24 05:14 WBC 8.7 RBC 4.52 Hgb 12.4 L Hct 37.0 L MCV 81.9 MCH 27.5 MCHC 33.6 RDW 14.6 Plt Count 245 Neut % (Auto) 63.1 Lymph % (Auto) 27.6 [place] % (Auto) 6.4 Eos % (Auto) 2.6 Baso % (Auto) 0.3 Neut # (Auto) 5500 Lymph # (Auto) 2400 [place] # (Auto) 600 Eos # (Auto) 200 Baso # (Auto) 0 Sodium 139 Potassium 4.1 Chloride 106 Carbon Dioxide 24 BUN 11 Creatinine 0.92 Estimated GFR > 60 BUN/Creatinine Ratio 12.0 Glucose 84 Calcium 8.9 PFSH Medical History History of COVID-19 (~2020) Diverticulitis Vasovagal syncope Depressive disorder Prostatitis CHRISTINA (obstructive sleep apnea) Surgical History H/O removal of cyst H/O vasectomy History of lumbar spinal fusion (2019) History of lumbar spinal fusion (2017) Hx of colonoscopy (11/27/23) Hx of cholecystectomy (2019) Social History household members: spouse and children Smoking Status: Former smoker alcohol intake: former Assessment & Plan Time-Based Coding :: [TOTAL MINUTES] spent with patient and on the chart (including review of chart, obtaining history, exam, reviewing outside data, placing orders, documenting exam and treatment plan, and counseling patient) on [DATE]. Quality VTE Deep Vein Thrombosis/Pulmonary Embolism Present on Admission: No IH PROFEE Circulation Representative Document charge(s): Yes
--- NOTE | 2024-03-03 10:39 | CM.DANOTE ---
Addendum entered by MANDIE Santamaria 03/03/24 15:17: ADD: Per MD and Surgeon, plan to start to advance pt's diet tomorrow Mon 03/04 to see if pt can have bm and tolerate diet before likely d/c Tues if stable. Pt switched from OBS to Inpt as of today. BF Original Note: Pt is a 38 year-old M who was admitted OBS Status on 03/02/24 after post-op abscess from a planned laparoscopic sigmoid colectomy in Jan 2024. He has a hx of multiple infections from diverticulitis. Pt to have IV abx and has already had bm and his abscess is just slow to resolve but MD anticipates possible discharge tomorrow Mon. Payor: Inder Liang PCP: Michelle Rayo Reviewed EMR and team rounds for pt's medical status and status updates. Met with pt at bedside to introduce self and role, Pt lives independently at baseline with his and children in their own home in [place]. His will transport him home once he's medically stable for d/c. Patient does not anticipate any d/c needs and preference is home once medically stable. Per Surgeon, no surgical intervention at this time and will continue with conservative tx. MANDIE Santamaria Discharge Planning/Care Management CM Discharge Assessment Start: 03/03/24 10:37 Freq: Status: Active Protocol: Document 03/03/24 10:37 BF (Rec: 03/03/24 10:38 [id number]) Discharge Planning Assessment Assigned Manager Credit Collections MANDIE Elizondo DPOA/Assigned Designee Name informally spouse Advance Directives? No Advance Directives on File No History Provided By Patient,Medical Record Has Patient been admitted in last 30 Yes days? Comment Recently discharged in January after sigmoid colectomy Prior Living Arrangements House Household Members spouse,children Type of transporation used prior to Drives own vehicle admit Independent with ADL's Yes Is patient alert and oriented? Yes Caregiver for Another Yes: kids at home Barriers to Discharge No Discharge Plan Home Transportation Arrangement Likely spouse to transport Referrals Initiated None needed Whiteboard Updated in Patient Room with Yes name and ext. # of Manager Credit Collections Review Status In Process Please Provide Date Initial DC 03/03/24 Assessment Was Performed Next Review Type Continued Stay Review
--- NOTE | 2024-03-03 12:30 | PC.NURSE ---
Patient given dilaudid x2 for complaints of rectum pain and pressure. He was also given tylenol for a headache. Using urinal to void. Will encourage patient to get up and move around and go for a walk.
--- NOTE | 2024-03-03 14:55 | P.PN_ITS ---
Subjective Subjective Interval history: 39-year-old male who underwent sigmoid colectomy in January 25 for diverticulitis. He was admitted yesterday for an abscess versus contained perforation at anastomotic site. He was afebrile with normal white blood cell count. He was initiated on Zosyn for antibiotics. Patient reports he is feeling better today. He is having less discomfort. He thought he was going to pass gas or move his bowels earlier today. He did get up to the bathroom and when he bore down, he was not able to pass anything, but he did notice less pain. He was hoping to be able to eat today, but notes that the general surgeon was in and stated he wanted to wait until tomorrow. He has been tolerating water throughout his hospital stay. Has had no further nausea or vomiting since before our visit yesterday. Exam Vital Signs (past 8 hours): - 03/03/24 07:00 Temperature 98.2 F Pulse Rate 79 Respiratory Rate 15 Blood Pressure 115/78 Pulse Oximetry 93 Oxygen Flow Rate 0 Oxygen Delivery Method Room Air Oxygen Flow Rate 0 Narrative Exam Narrative: GEN: Adult male, Alert and oriented x 3, NAD HEENT:NC, Face symmetric CHEST: Respiratory excursions symmetric, CTAB CV: RRR, no M/R/G ABD: Soft, NT/ND, BT present in all 4 quadrants, incisions are healing well EXTR: warm, well perfused, no C/C/E SKIN: warm and dry, no rash NEURO: Alert and oriented x 3, nonfocal Objective Labs 03/03/24 05:14 03/03/24 05:14 Labs: Laboratory Results - last 24 hr 03/03/24 05:14 WBC 8.7 RBC 4.52 Hgb 12.4 L Hct 37.0 L MCV 81.9 MCH 27.5 MCHC 33.6 RDW 14.6 Plt Count 245 Neut % (Auto) 63.1 Lymph % (Auto) 27.6 [place] % (Auto) 6.4 Eos % (Auto) 2.6 Baso % (Auto) 0.3 Neut # (Auto) 5500 Lymph # (Auto) 2400 [place] # (Auto) 600 Eos # (Auto) 200 Baso # (Auto) 0 Sodium 139 Potassium 4.1 Chloride 106 Carbon Dioxide 24 BUN 11 Creatinine 0.92 Estimated GFR > 60 BUN/Creatinine Ratio 12.0 Glucose 84 Calcium 8.9 [facility] Medical History History of COVID-19 (~2020) Diverticulitis Vasovagal syncope Depressive disorder Prostatitis CHRISTINA (obstructive sleep apnea) Surgical History H/O removal of cyst H/O vasectomy History of lumbar spinal fusion (2019) History of lumbar spinal fusion (2017) Hx of colonoscopy (11/27/23) Hx of cholecystectomy (2019) Social History household members: spouse and children Smoking Status: Former smoker alcohol intake: former Assessment & Plan Assessment & Plan narrative: [address] [address] Progress Note Patient: Bebeto Givens MR#: [id number] : 1985 Acct:[id number] Age/Sex: 39 / M Admit Date: 03/01/24 Provider: Felicia Tolbert MD Subjective Subjective Interval history: 39-year-old male who underwent sigmoid colectomy in January 25 for diverticulitis. He was admitted yesterday for an abscess versus contained perforation at anastomotic site. He was afebrile with normal white blood cell count. He was initiated on Zosyn for antibiotics. Today, he reports he has been having nausea and dry heaving. He states after his last episode of dry heaving, feels as though he emptied his stomach. He states he felt quite a bit better after that happen. He reports he only drank coffee yesterday and had eaten anything before coming into the hospital. He states he was having pain with passing gas and moving his bowels. He did have a BM today and states it felt perhaps very slightly less painful. Exam Vital Signs (past 8 hours): - 03/02/2511:50 03/02/2515:43 03/02/2515:45 Temperature 97.6 F 100.4 F H Pulse Rate 76 88 Respiratory Rate 17 Blood Pressure 133/78 106/79 Pulse Oximetry 98 Oxygen Flow Rate 1 03/02/2516:29 Temperature 97.6 F Pulse Rate Respiratory Rate Blood Pressure Pulse Oximetry Oxygen Flow Rate Oxygen Delivery Method Room Air Oxygen Flow Rate 1 Narrative Exam Narrative: GEN: Adult male, Alert and oriented x 3, NAD HEENT:NC, Face symmetric CHEST: Respiratory excursions symmetric, CTAB CV: RRR, no M/R/G ABD: Soft, tender to palpation in the left lower quadrant/ND, BT present in all 4 quadrants, incisions are healing well EXTR: warm, well perfused, no C/C/E SKIN: warm and dry, no rash NEURO: Alert and oriented x 3, nonfocal Objective Labs 03/02/24 05:10 03/02/24 05:10 Labs: Laboratory Results - last 24 hr 03/02/24 05:10 WBC 8.6 RBC 4.45 L Hgb 12.3 L Hct 36.4 L MCV 81.8 MCH 27.6 MCHC 33.7 RDW 15.1 H Plt Count 233 Neut % (Auto) 68.0 Lymph % (Auto) 23.7 L [place] % (Auto) 7.0 Eos % (Auto) 1.0 L Baso % (Auto) 0.3 Neut # (Auto) 5900 Lymph # (Auto) 2000 [place] # (Auto) 600 Eos # (Auto) 100 Baso # (Auto) 0 Sodium 138 Potassium 4.3 Chloride 103 Carbon Dioxide 28 BUN 14 Creatinine 0.98 Estimated GFR > 60 BUN/Creatinine Ratio 14.3 Glucose 89 Calcium 8.8 PFSH Medical History History of COVID-19 (~2020) Diverticulitis Vasovagal syncope Depressive disorder Prostatitis CHRISTINA (obstructive sleep apnea) Surgical History H/O removal of cyst H/O vasectomy History of lumbar spinal fusion (2019) History of lumbar spinal fusion (2018) Hx of colonoscopy (11/27/23) Hx of cholecystectomy (2019) Social History household members: spouse and children Smoking Status: Former smoker alcohol intake: former Assessment & Plan Assessment & Plan narrative: 1.??? Post-op abscess/contained perforation Continue zosyn therapy.? Pt was having increasing tenesmus.? Will ensure he is not having constipation once he is able to tolerate oral intake.? He has not needed any antiemetics in the past [address] on a clear liquid diet for now. Anticipate he will be able to eat solid food tomorrow. Appreciate general surgery consult. 2.??? Anemia Mild.? Stable. 3.??? Class 2 obesity Stable. BMI is 37. Code status Full Prophylaxis On heparin Disposition Anticipate his diet will be advanced tomorrow and he may discharge home on March 05. Time-Based Coding :: [TOTAL MINUTES] spent with patient and on the chart (including review of chart, obtaining history, exam, reviewing outside data, placing orders, documenting exam and treatment plan, and counseling patient) on [DATE]. Quality VTE Deep Vein Thrombosis/Pulmonary Embolism Present on Admission: No
[2024-03-03] MEDS: OXYCODONE IR 5 MG TABLET PO ×2 (15:03→22:28)
[2024-03-03 19:00] VITALS: BP 132/87; PULSE 72; RESP 20; TEMP 37.2; O2SAT 97
[2024-03-04] MEDS: PIPERACILLIN/TAZO 3.375 GM in SODIUM CHLORIDE 0.9% 100 ML IV ×3 (01:45→18:32)
[2024-03-04] MEDS: HYDROMORPHONE 1 MG INJ IV ×4 (01:50→20:56)
[2024-03-04 07:00] VITALS: BP 126/86; PULSE 70; RESP 18; TEMP 36.7; O2SAT 98
--- NOTE | 2024-03-04 07:40 | P.PN_ITS ---
Subjective Subjective Interval history: Summary: 39-year-old male who underwent sigmoid colectomy in January 25 for diverticulitis. He was admitted yesterday for an abscess versus contained perforation at anastomotic site. He was afebrile with normal white blood cell count. He was initiated on Zosyn for antibiotics. S: He was improved. He was having a regular lunch today. He did have a bowel movement. He was much less pain. The plan is home with oral antibiotics tomorrow, per surgery. Exam Vital Signs (past 8 hours): Oxygen Delivery Method Room Air Oxygen Flow Rate 0 Narrative Exam Narrative: NAD, alert and oriented. Fluent speech. Lungs are clear, normal rate and effort. Heart is regular, no murmur gallop or rub. Abdomen is soft, non distended. Extremities are free of edema. Objective Labs 03/03/24 05:14 03/03/24 05:14 [facility] Medical History History of COVID-19 (~2020) Diverticulitis Vasovagal syncope Depressive disorder Prostatitis CHRISTINA (obstructive sleep apnea) Surgical History H/O removal of cyst H/O vasectomy History of lumbar spinal fusion (2019) History of lumbar spinal fusion (2017) Hx of colonoscopy (11/27/23) Hx of cholecystectomy (2019) Social History household members: spouse and children Smoking Status: Former smoker alcohol intake: former Assessment & Plan Assessment & Plan narrative: 1.??? Post-op abscess/contained perforation, present on admission moving. Continue zosyn therapy.? Pt was having increasing tenesmus.? Will ensure he is not having constipation once he is able to tolerate oral intake.? He has not needed any antiemetics in the past [address] on a clear liquid diet for now. Anticipate he will be able to eat solid food tomorrow. Appreciate general surgery consult. 2.??? Anemia, present on admission and stable. Mild.? Stable. 3.??? Class 2 obesity, present on admission and stable. Stable. BMI is 37. Plan: -continue IV antibiotics until tomorrow -anticipate discharge home on March 05 with oral antibiotics, to be determined by surgery. -wean IV analgesia and move towards just oral pain medications. Code status Carton Forming Machine Helper-Based Coding :: [TOTAL MINUTES] spent with patient and on the chart (including review of chart, obtaining history, exam, reviewing outside data, placing orders, documenting exam and treatment plan, and counseling patient) on [DATE]. Quality VTE Deep Vein Thrombosis/Pulmonary Embolism Present on Admission: No
[2024-03-04] MEDS: HEPARIN 5,000 UNIT/ML VIAL 5000 UNIT SUBCUT ×2 (08:36→20:56)
[2024-03-04] MEDS: HYDROMORPHONE 2 MG TABLET 4 MG PO ×3 (08:37→18:31)
[2024-03-04] MEDS: PREGABALIN 75 MG CAPSULE PO (08:37)
[2024-03-04] MEDS: PANTOPRAZOLE DR 40 MG TABLET PO (08:37)
--- NOTE | 2024-03-04 09:03 | PC.NURSE ---
Addendum entered by Marcie Ag R.N. 03/04/24 14:43: Patient asking several times for pain medication. He has 4mg of po dilaudid that he has been given, after an hour of giving pain medication he complains of discomfort and states that he is a drug baby and has a high tolerance to pain, when he asks for pain medication every two hours. Instructed on use of iv pain medication and that he is not going to go home with it, patient does not seem interested in this conversation but states that he knows that he wont have this med at home. also instructed patient on minimizing his use of the iv dilaudid but he is still asking for it. Took patient for a walk in the halls and he tolerated this well. Original Note: Patient seems to be doing better today. He is now on oral pain medication Dilaudid 4mg, given this morning. Will reassess pain in an hour. Patient is passing gas and had a medium bowel movement. Tolerated clear liquid diet.
--- NOTE | 2024-03-04 12:31 | PM.PN.IH.1 ---
Subjective Subjective Time Patient Seen: 12:31 Interval history: He feels 100% better, finally!, and tolerated PO clears this am, and now he is getting a diet, and tonight I am going to allow him a REGUALR diet, and then discharge tomorrow, IF he does well. Exam Vital Signs (past 8 hours): - 03/04/24 07:00 Temperature 98.1 F Pulse Rate 70 Respiratory Rate 18 Blood Pressure 126/86 Pulse Oximetry 98 Oxygen Flow Rate 0 Oxygen Delivery Method Room Air Oxygen Flow Rate 0 Objective Labs 03/03/24 05:14 03/03/24 05:14 [facility] Medical History History of COVID-19 (~2020) Diverticulitis Vasovagal syncope Depressive disorder Prostatitis CHRISTINA (obstructive sleep apnea) Surgical History H/O removal of cyst H/O vasectomy History of lumbar spinal fusion (2019) History of lumbar spinal fusion (2017) Hx of colonoscopy (11/27/23) Hx of cholecystectomy (2019) Social History household members: spouse and children Smoking Status: Former smoker alcohol intake: former Assessment & Plan Assessment and plan (1) Diverticulitis: Problem details: He had his sigmoidectomy last month, but started 2 weeks ago having major pain with pressure or pushing, with defecation and micturition, will check UA to r/o UTI, I was not impressed with the CT findings, hopefully he will CONTINUE to get better with current treatment, and we can feed him and send him home. I will follow and I WILL ORDER his diet when ready. 03/04/24: He feels 100% better, finally!, and tolerated PO clears this am, and now he is getting a diet, and tonight I am going to allow him a REGUALR diet, and then discharge tomorrow, IF he does well. Status: Acute Time-Based Coding :: [TOTAL MINUTES] spent with patient and on the chart (including review of chart, obtaining history, exam, reviewing outside data, placing orders, documenting exam and treatment plan, and counseling patient) on [DATE]. Quality VTE Deep Vein Thrombosis/Pulmonary Embolism Present on Admission: No PROFEE Field Staff Manager Document charge(s): Yes
[2024-03-04 20:20] VITALS: BP 134/74; PULSE 86; RESP 19; TEMP 36.4; O2SAT 99
[2024-03-05] MEDS: PIPERACILLIN/TAZO 3.375 GM in SODIUM CHLORIDE 0.9% 100 ML IV (01:56)
[2024-03-05 07:00] VITALS: BP 132/96; PULSE 91; RESP 12; TEMP 36.8; O2SAT 96
[2024-03-05] MEDS: PREGABALIN 75 MG CAPSULE PO (08:48)
[2024-03-05] MEDS: PANTOPRAZOLE DR 40 MG TABLET PO (08:48)
--- NOTE | 2024-03-05 10:20 | P.DS_ITS ---
History of Present Illness History of Present Illness Date Patient Seen: 03/05/24 Time Patient Seen: 10:20 Chief complaint: post op issues, sharp pain in rectum, abnormal BM Narrative: Per admitting provider, The patient is a 39-year-old male who is status post a sigmoid colectomy for recurrent smoldering sigmoid diverticulitis in January. The patient underwent a laparoscopic procedure which was converted to open. He had a relatively prolonged postoperative course and ultimately discharge. He was had persistent incisional pain with slow improvement. Over the last several days, he was developed pressure in the rectum and pain with defecation as well as pressure with urination and discomfort with urination. He denies any rectal bleeding, or mucus. He also denies any hematuria, or hazy colored urine. There have been no fevers or chills. With each day, his rectal pain has become more persistent after defecation and today it did not alleviate at all. Imaging here indicated a possible small abscess in the operative area. This appears to be too small for percutaneous drainage. The case was discussed with the surgeon on-call who recommended NPO status and IV antibiotics for several days, i.e. treat like a diverticulitis. The patient denies anorexia, poor appetite, nausea, or vomiting. He does take testosterone supplements which is new. He was also somewhat overweight with a BMI of 38. He denies any active dehiscence of his abdominal wounds at this time. He also denies any chest pain, dyspnea, or rhinorrhea. Discharge Providers Provider Date of admission: 03/03/24 14:59 Discharge Date: 03/05/24 Primary care physician: Michelle Rayo MD Consults: 03/01/24 13:47 Consult to General Surgery Stat Comment: Consulting Provider: Ana Mtz Reason for consultation: post op pain Has provider been notified: Yes Discharge provider: Oni Cruz DO Summary Hospital Course Discharge Diagnosis: 1.??? Post-op abscess/contained perforation, present on admission moving. 2.??? Anemia, present on admission and stable. 3.??? Class 2 obesity, present on admission and stable. Hospital Course: This is a 39 year old male who was admitted with a post operative abscess vs contained perforation / leak from recent sigmoid colectomy for diverticulitis. He was continued on zosyn therapy during his stay with slow improvement. Surgery team was consulted and also monitored patient but there was no indication for surgical interventions during this admission. His diet was advanced and his abdominal pain resolved. He was discharged home once tolerating a diet. He was given another week of augmentin for treatment and will follow up with the surgeons after discharge. No other changes were made to his home medications on discharge. Time Spent with Patient Time spent: Greater than 30 minutes Exam Vital Signs (past 8 hours): - 03/05/24 07:00 Temperature 98.3 F Pulse Rate 91 H Respiratory Rate 12 Blood Pressure 132/96 H Pulse Oximetry 96 Oxygen Flow Rate 0 Oxygen Delivery Method Room Air Oxygen Flow Rate 0 Narrative Exam Narrative: NAD, alert and oriented. Fluent speech. Lungs are clear, normal rate and effort. Heart is regular, no murmur gallop or rub. Abdomen is soft, non distended. Extremities are free of edema. Objective Labs 03/03/24 05:14 03/03/24 05:14 [facility] Medical History History of COVID-19 (~2020) Diverticulitis Vasovagal syncope Depressive disorder Prostatitis CHRISTINA (obstructive sleep apnea) Surgical History H/O removal of cyst H/O vasectomy History of lumbar spinal fusion (2019) History of lumbar spinal fusion (2017) Hx of colonoscopy (11/27/23) Hx of cholecystectomy (2019) Social History household members: spouse and children Smoking Status: Former smoker alcohol intake: former Discharge Plan Discharge Plan Patient Disposition: Home Provider Discharge Comment: Admitted to the hospital with small abdominal abscess from diverticulitis vs small leak from recent abdominal surgery. Now improved. Continue antibiotics at home. Follow up with surgeons after discharge. Discharge orders & Medications Prescriptions: New amoxicillin-pot clavulanate 875-125 mg tablet 1 tab PO BID 7 Days Qty: 14 0RF ondansetron HCl 4 mg tablet 4 mg PO Q8H PRN (Reason: nausea and vomiting) 30 Days Qty: 30 0RF Continued pantoprazole 40 mg tablet,delayed release (DR/EC) 40 mg PO DAILY celecoxib 200 mg capsule 200 mg PO DAILY methocarbamol 500 mg tablet 500 mg PO PRN PRN (Reason: Spasms) Patient Comments: [NO ORIGINAL SIG] testosterone cypionate 200 mg/mL oil IM WEEKLY pregabalin 75 mg capsule 75 mg PO DAILY multivitamin Tablet 1 tab PO DAILY lidocaine 5 % Adhesive Patch,Medicated 1 patch topical DAILY 14 Days Qty: 14 3RF naloxone [Narcan] 4 mg/actuation spray,non-aerosol 4 mg intranasal Q3M PRN (Reason: opioid overdose) Qty: 2 0RF Rx Instructions: spray 1 dose into ONE nostril; alternate nostrils w each dose until help arrives Changed hydromorphone [Dilaudid] 2 mg tablet 2 - 4 mg PO Q6H PRN (Reason: pain) 7 Days Qty: 30 0RF Follow up/Referrals: Michelle Rayo MD [Primary Care Provider] - Visit Report/Discharge Packet Stand Alone Forms: Patient Portal/API, Stroke Signs & Symptoms Discharge Data Primary Care Provider: Michelle Rayo Quality VTE Deep Vein Thrombosis/Pulmonary Embolism Present on Admission: No
--- NOTE | 2024-03-05 10:41 | CM.DPNOTE ---
DCP note CORPORATE ATTORNEY reviewed EMR. per provider in morning rounds, anticipate dc today. Per RN, pt pain improved, no N/V. CORPORATE ATTORNEY met with pt in room. Eager to dc home. deny any DCP needs at this time. P: home with spouse to transport in POV today, no CM needs/barriers to safe dc home at this time. CM team will continue to follow as needed MANDIE Petit
--- NOTE | 2024-03-05 10:58 | PC.NURSE ---
D/c information reviewed with pt, including new Rx and changes to medication. IV removed. Pt refused w/c at discharge so this RN escorted pt private vehicle.
== END 2024-03-05 11:01 | disposition home or self-care (01) | DRG 862 ==
LOC: ED 13:53 → AC 13:54
PROVIDERS: Admitting Provider Hospitalist; Emergency Provider Emergency Medicine; Referring Provider Emergency Medicine; Visit Provider Hospitalist
DX: T81.43XA Infection following a procedure, organ and space surgical site, initial encounter (principal); K63.1 Perforation of intestine (nontraumatic); K63.0 Abscess of intestine; K91.89 Other postprocedural complications and disorders of digestive system; E66.812 Obesity, class 2; D64.9 Anemia, unspecified; Y83.2 Surgical operation with anastomosis, bypass or graft as the cause of abnormal reaction of the patient, or of later complication, without mention of misadventure at the time of the procedure; Y73.3 Surgical instruments, materials and gastroenterology and urology devices (including sutures) associated with adverse incidents; Z87.891 Personal history of nicotine dependence; Z68.37 Body mass index [BMI] 37.0-37.9, adult; Z90.49 Acquired absence of other specified parts of digestive tract
CPT/HCPCS: 36415; 74177; 80048; 80053; 81003; 83605; 83690; 85025; 87040; 96365; 96375; 96376; 99232; 99233; 99284; G0378; J0780; J1171; J1644; J1885; J2405; J2543; Q9967

== ENCOUNTER → 2024-03-11 07:56 | Outpatient (CLI) | payer OTHER, SELFPAY ==
[2024-03-01 15:41] VITALS: BMI 37.3
--- NOTE | 2024-03-11 07:57 | DI.CT.S_ITS ---
PROCEDURE: CT ABDOMEN PELVIS W CON INDICATIONS: diverticulitis TECHNIQUE: After the administration of intravenous contrast, axial sections acquired from the lung bases to the pubic symphysis. Coronal and sagittal reformats were performed. For radiation dose reduction, the following was used: automated exposure control, adjustment of mA and/or kV according to patient size. COMPARISON: [facility], CT, CT ABDOMEN PELVIS W CON, 03/01/2024, 12:41. FINDINGS: Image quality: Diagnostic Lower chest: Mildly patulous distal esophagus. Liver: Possible hepatic steatosis Gallbladder and biliary system: Unremarkable Pancreas: No ductal dilation Spleen: Borderline enlarged at 14 cm Adrenals: No discrete nodules Kidneys: No solid mass no hydronephrosis. Vessels and lymph nodes: The main portal vein is patent. No abdominal aortic aneurysm. No pathologic lymph nodes by size criteria Bowel and peritoneum: No evidence of small bowel obstruction. No pathologic ascites or drainable abscess. Distal colonic suture lines are present, no significant inflammation in the vicinity. Minimal of the there is fat stranding is seen in the left lower quadrant, likely postsurgical changes Adjacent to the duodenum, there is a lesion measuring 2.5 x 1.5 cm (3/62). Body wall: Postsurgical changes Pelvis: Bladder is unremarkable. Prostate is unremarkable. Bones: No acute or suspicious osseous finding. There are lumbosacral postsurgical changes. IMPRESSION: Postsurgical changes for diverticulitis with distal colonic suture lines. No abscess. No increasing inflammatory changes. Mild inflammatory fat stranding is present, likely postsurgical. No significant ascites. There is a nodule adjacent to the duodenum incidentally noted, favored to represent accessory pancreatic tissue (3/62). A 3 to six-month follow-up CT could be obtained to ensure stability, versus more definitive evaluation of pancreas MRI. Borderline splenomegaly. Other findings above Dictated by: Oumar Fernandez M.D. on 03/11/2024 at 10:24 Approved by: Oumar Fernandez M.D. on 03/11/2024 at 10:32
== END ==
PROVIDERS: Referring Provider Surgery; Visit Provider Surgery
DX: K57.92 Diverticulitis of intestine, part unspecified, without perforation or abscess without bleeding (principal); K31.9 Disease of stomach and duodenum, unspecified
CPT/HCPCS: 74177; Q9967

== ENCOUNTER → 2024-05-21 08:33 | Outpatient (CLI) | payer OTHER, SELFPAY ==
[2024-03-01 15:41] VITALS: BMI 37.3
--- NOTE | 2024-05-21 08:34 | DI.CT.S_ITS ---
PROCEDURE: CT ABDOMEN PELVIS W CON INDICATIONS: DIVERTICULITIS S/P PARTIAL SIGMOID COLECTOMY TECHNIQUE: After the administration of intravenous contrast, axial sections acquired from the lung bases to the pubic symphysis. Coronal and sagittal reformats were performed. For radiation dose reduction, the following was used: automated exposure control, adjustment of mA and/or kV according to patient size. COMPARISON: [facility], CT, CT ABDOMEN PELVIS W CON, 03/11/2024, 9:23. FINDINGS: Image quality: Diagnostic. Lower Chest: No significant findings. ABDOMEN: Liver: Enlarged with diffusely decreased density, and no focal mass, consistent with fatty infiltration. Gallbladder: Surgically absent. Biliary ducts: No biliary dilation. Pancreas: No ductal dilation. Small focus of accessory pancreatic tissue adjacent to the duodenum is unchanged. Spleen: Size is within normal limits. Adrenal Glands: No adrenal nodules. Kidneys and Ureters: No hydronephrosis. No solid mass. No complex renal cystic lesion which requires follow up. Stomach and Bowel: Normal colonic caliber, without significant wall thickening. Appendix is not seen. Sigmoid colonic anastomosis is present as before. Peritoneum: No abnormal intraperitoneal fluid. No free air. Ventral Wall: No significant ventral hernia. Abdominal Nodes: No retroperitoneal or mesenteric adenopathy by size criteria. Vessels: Aorta and inferior vena cava are normal in size. PELVIS: Pelvic Organs: Unremarkable. Bladder: No bladder wall thickening, accounting for underdistention. Pelvic Nodes: No enlarged lymph nodes. Miscellaneous: No inguinal hernias are seen. Bones: No aggressive osseous abnormality. IMPRESSION: 1. Postsurgical sequelae. 2. Hepatic steatosis. 3. No acute process. Dictated by: Adina Mack M.D. on 05/21/2024 at 15:04 Approved by: Adina Mack M.D. on 05/21/2024 at 15:09
== END ==
DX: K57.92 Diverticulitis of intestine, part unspecified, without perforation or abscess without bleeding (principal); K76.0 Fatty (change of) liver, not elsewhere classified; Z90.49 Acquired absence of other specified parts of digestive tract
CPT/HCPCS: 74177; Q9967

== ENCOUNTER 2024-05-29 11:55 | Emergency (ER) | payer OTHER, SELFPAY ==
[2024-03-01 15:41] VITALS: BMI 37.3
[2024-05-29] VITALS (10 sets, daily range): BP systolic 129–180; BP diastolic 72–102; PULSE 78–99; RESP 15–97; TEMP 36.6; O2SAT 95–98; BMI 38.2
--- NOTE | 2024-05-29 12:05 | EKG_ITS ---
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
[2024-05-29] MEDS: PANTOPRAZOLE 40 MG VIAL 80 MG IV (12:25)
[2024-05-29 12:34] LABS: Add Manual Diff / Slide Review NO; Basophils Absolute Auto 0 /uL (0-100); Basophils Percent Auto 0.5 % (0-2); Eosinophils Absolute Auto 100 /uL (0-450); Eosinophils Percent Auto 0.8 % (2-4); Hematocrit 45.8 % (41-53); Hemoglobin 15.4 g/dL (13.5-17.5); Lymphocytes Absolute Auto 2200 /uL (1100-4500); Lymphocytes Percent Auto 25.3 % (25-40); Mean Corpuscular HGB Conc 33.6 % (30-36); Mean Corpuscular Hemoglobin 28.1 PG (26-34); Mean Corpuscular Volume 83.7 fL (80-100); Monocytes Absolute Auto 500 /uL (0-900); Monocytes Percent Auto 6.2 % (3-14); Neutrophils Absolute Auto 5800 /uL (1500-7000); Neutrophils Percent Auto 67.2 % (50-75); Platelet Count 249 X10^3/uL (150-400); Red Blood Cell Count 5.47 X10^6/uL (4.5-5.9); Red Cell Distribution Width 15.1 % (11.6-14.8); White Blood Cell Count 8.6 X10^3/uL (4.5-11.0)
--- NOTE | 2024-05-29 12:36 | DI.CT.S_ITS ---
PROCEDURE: CT ABDOMEN PELVIS W CON INDICATIONS: Abdominal pain history of diverticulitis TECHNIQUE: After the administration of intravenous contrast, axial sections acquired from the lung bases to the pubic symphysis. Coronal and sagittal reformats were performed. For radiation dose reduction, the following was used: automated exposure control, adjustment of mA and/or kV according to patient size. COMPARISON: [facility], CT, CT ABDOMEN PELVIS W CON, 05/21/2024, 9:53. FINDINGS: Image quality: Diagnostic. Lower Chest: No significant findings. ABDOMEN: Liver: No solid mass. Moderate hepatic steatosis is seen. Gallbladder: Gallbladder is not visualized and likely surgically absent. Biliary ducts: No biliary dilation. Pancreas: No ductal dilation. Spleen: Size is within normal limits. Adrenal Glands: No adrenal nodules. Kidneys and Ureters: No hydronephrosis. No solid mass. No complex renal cystic lesion which requires follow up. Stomach and Bowel: Postsurgical changes are noted in the sigmoid colon with intact surgical anastomosis. Colonic diverticulosis is seen without CT evidence of acute diverticulitis. No gastric or small bowel wall thickening. Appendix is not definitively seen. No focal inflammatory changes are seen in right lower quadrant abdomen. No abscess collection. Peritoneum: No abnormal intraperitoneal fluid. No free air. Ventral Wall: No significant ventral hernia. Abdominal Nodes: No retroperitoneal or mesenteric adenopathy by size criteria. Vessels: Aorta and inferior vena cava are normal in size. PELVIS: Pelvic Organs: Unremarkable. Bladder: No bladder wall thickening, accounting for underdistention. Pelvic Nodes: No enlarged lymph nodes. Miscellaneous: No inguinal hernias are seen. Bones: No aggressive osseous abnormality. Postsurgical changes are noted in lower lumbar spine from prior surgical fusion unchanged from prior study. IMPRESSION: 1. No bowel obstruction or abnormal bowel wall thickening. Postsurgical changes in sigmoid colon. Colonic diverticulosis without CT evidence of acute diverticulitis. No abscess collection. No free fluid or free air. 2. Other chronic changes as above, not significantly changed from prior study. Dictated by: Tai White M.D. on 05/29/2024 at 13:43 Approved by: Tai White M.D. on 05/29/2024 at 13:47
--- NOTE | 2024-05-29 12:37 | ED.GIBLEED ---
HPI - GI Bleed General Chief complaint: GI Bleed Stated complaint: bloody stool x 3days, resection sx in Jan Time Seen by Provider: 05/29/24 12:07 Source: patient Mode of arrival: Ambulatory History of Present Illness HPI Narrative: Patient is a male with a history of diverticulitis and sigmoidectomy in January, during which approximately 12-14 inches of the sigmoid colon were resected due to multiple perforations. He reports ongoing post-surgical symptoms, including discomfort during bowel movements and bloating. Since Monday, he has experienced sharp, pinching left-sided abdominal pain radiating to the pelvic region, which he describes as similar to previous diverticulitis episodes. On Monday night, he noticed streaky bright red blood mixed with fecal matter after using the bathroom. On Monday morning, he had a bowel movement consisting entirely of blood, resembling dyed water. He reports reduced food intake to minimize bowel movements but continues to experience bleeding, including blood dripping into the toilet and spotting on his underwear. He denies diarrhea but reports hard stool on rectal examination. He has no history of hemorrhoids and denies recent travel or exposure to new foods. Pertinent ROS: Positive for abdominal pain, rectal bleeding, and bloating. Negative for diarrhea, fever, nausea, vomiting, recent travel, or exposure to new foods. Past Medical History: History of diverticulitis, sigmoidectomy, gallbladder removal, cyst removal, and spine surgeries. Currently receiving testosterone shots for low testosterone. Surgical History: Sigmoidectomy in January, gallbladder removal, cyst removal, spine surgeries. Medications: Testosterone shots. Allergies: None mentioned. Related Data Home Medications Medication Instructions Recorded Confirmed pantoprazole 40 mg tablet,delayed 40 mg PO DAILY 11/26/23 03/13/24 release multivitamin 1 tab PO DAILY 01/23/24 03/13/24 celecoxib 200 mg capsule 200 mg PO DAILY 03/01/24 03/13/24 methocarbamol 500 mg tablet 500 mg PO PRN PRN Spasms 03/01/24 03/13/24 pregabalin 75 mg capsule 75 mg PO DAILY 03/01/24 03/13/24 testosterone cypionate 200 mg/mL IM WEEKLY 03/01/24 03/13/24 intramuscular oil Previous Rx's Medication Instructions Recorded lidocaine 5 % topical patch 1 patch topical DAILY 14 days #14 01/29/24 ea naloxone 4 mg/actuation nasal 4 mg intranasal Q3M PRN opioid 01/29/24 spray (Narcan) overdose #2 ea hydromorphone 2 mg tablet 2 - 4 mg (1 - 2 x 2 mg) PO Q6H PRN 03/05/24 (Dilaudid) pain 7 days #30 tabs Allergies Allergy/AdvReac Type Severity Reaction Status Date / Time bee venom protein (honey bee) Allergy Unknown Anaphylaxis Verified 03/13/24 16:26 [BEE VENOM PROTEIN (HONEY as a child BEE)] Review of Systems Review of Systems Narrative: Constitutional: No recent travel or exposure to new foods. Eyes: No visual changes. Ears/Nose/Throat: No nasal congestion or drainage. Respiratory: No shortness of breath. Cardiac: No chest pain. Gastrointestinal: Reports left-sided abdominal pain radiating to the pelvic region, bright red blood in stool, bloating, and discomfort during bowel movements. Denies diarrhea. Genitourinary: No urinary symptoms. Skin: No rash or lesions. Musculoskeletal: No extremity pain. Neurologic: No confusion or focal deficits. Psychiatric: No mood changes. Other: None. Patient History Medical History History of COVID-19 (~2020) Diverticulitis Vasovagal syncope Depressive disorder Prostatitis CHRISTINA (obstructive sleep apnea) Surgical History H/O removal of cyst H/O vasectomy History of lumbar spinal fusion (2019) History of lumbar spinal fusion (2017) Hx of colonoscopy (11/27/23) Hx of cholecystectomy (2019) Social History household members: spouse and children Smoking Status: Never smoker alcohol intake: former Smoking Status: Never smoker alcohol intake frequency: a few times a week Exam Narrative Exam Narrative: General: Well appearing, well nourished, alert, and cooperative. Skin: Good turgor, no rash, unusual bruising or prominent lesions. No external evidence of bleeding or thrombosis in the rectal area. Head: Normocephalic, atraumatic. HEENT: Conjunctiva clear, EOM intact, PERRL, mucous membranes moist. Neck: Supple, normal ROM. Heart: Regular rate and rhythm, no murmur or gallop or rubs. Lungs: Clear to auscultation. No rales, rhonchi, or wheezes. Abdomen: Soft, non-distended, non-tender, mild left lower quadrant tenderness, no rebound tenderness or guarding. Back: Spine normal without deformity or tenderness, no CVA tenderness. Extremities: No deformities, edema. Peripheral pulses intact. Rectal: No evidence of significant hemorrhoids, thrombosis, or dried blood. Digital rectal exam revealed no bright red blood and a small amount of hard stool in the vault. Neurologic: CN 2-12 normal. Normal sensation and motor exam. Psychiatric: Oriented ?3, normal mood and affect. Initial Vital Signs Initial Vital Signs: Vital Signs Temperature 98 F 05/29/24 11:58 Pulse Rate 99 H 05/29/24 11:58 Respiratory Rate 97 H 05/29/24 11:58 Blood Pressure 180/99 H 05/29/24 11:58 Pulse Oximetry 97 05/29/24 11:58 Oxygen Delivery Method Room Air 05/29/24 11:58 Course Orders Ordered: ED Orders 05/29/24 12:05 EKG-12 Lead Stat 05/29/24 12:15 Complete Blood Count AUTO DIFF Stat Comprehensive Metabolic Panel Stat PTT Partial Thromboplastin Khanh Stat Prothrombin Time INR Stat Type and Screen Stat 05/29/24 12:36 CT abdomen pelvis w con Stat Discontinued Medications Morphine Sulfate (Morphine 2 Mg/Ml Inj) 2 mg IV NOW ONE Stop: 05/29/24 13:39 Last Admin: 05/29/24 13:57 Dose: 2 mg Documented By: Ondansetron HCl (Ondansetron 4 Mg/2 Ml Inj) 4 mg IV NOW PRN PRN Reason: Nausea And Vomiting Ondansetron HCl (Ondansetron 4 Mg Odt) 4 mg SL NOW PRN PRN Reason: Nausea And Vomiting Pantoprazole Sodium (Pantoprazole 40 Mg Vial) 80 mg IV NOW ONE Stop: 05/29/24 12:06 Last Admin: 05/29/24 12:25 Dose: 80 mg Documented By: Vital Signs Vital signs: Vital Signs - 8 hr 05/29/24 11:58 05/29/24 12:25 05/29/24 12:26 Temperature 98 F Pulse Rate 99 H 94 H Respiratory Rate 97 H 22 Blood Pressure 180/99 H 130/96 H Pulse Oximetry 97 97 Oxygen Delivery Method Room Air 05/29/24 12:26 05/29/24 12:30 05/29/24 12:30 Temperature Pulse Rate 92 H 94 H Respiratory Rate 17 25 H Blood Pressure 138/102 H Pulse Oximetry 97 98 Oxygen Delivery Method 05/29/24 13:00 05/29/24 13:38 05/29/24 13:39 Temperature Pulse Rate 86 83 78 Respiratory Rate 22 15 Blood Pressure Pulse Oximetry 95 96 98 Oxygen Delivery Method Room Air 05/29/24 13:39 05/29/24 14:00 05/29/24 14:01 Temperature Pulse Rate 90 Respiratory Rate 39 H Blood Pressure 146/81 H 134/98 H Pulse Oximetry 97 Oxygen Delivery Method 05/29/24 14:01 05/29/24 15:15 Temperature Pulse Rate 88 81 Respiratory Rate 25 H 20 Blood Pressure 129/72 Pulse Oximetry 97 97 Oxygen Delivery Method Room Air MDM - GI Bleed Lab Data 05/29/24 12:15 05/29/24 12:15 Labs: Lab Results 05/29/24 Range/Units 12:15 WBC 8.6 (4.5-11.0) X10^3/uL RBC 5.47 (4.5-5.9) X10^6/uL Hgb 15.4 (13.5-17.5) g/dL Hct 45.8 (41-53) % MCV 83.7 (80-100) fL MCH 28.1 (26-34) PG MCHC 33.6 (30-36) % RDW 15.1 H (11.6-14.8) % Plt Count 249 (150-400) X10^3/uL Neut % (Auto) 67.2 (50-75) % Lymph % (Auto) 25.3 (25-40) % [place] % (Auto) 6.2 (3-14) % Eos % (Auto) 0.8 L (2-4) % Baso % (Auto) 0.5 (0-2) % Neut # (Auto) 5800 (5671-5206) /uL Lymph # (Auto) 2200 (2831-9109) /uL [place] # (Auto) 500 (0-900) /uL Eos # (Auto) 100 (0-450) /uL Baso # (Auto) 0 (0-100) /uL PT 11.6 (9.4-12.5) SECONDS INR 1.0 (0.9-1.3) APTT 35 (25.1-36.5) SECONDS Sodium 141 (137-145) mmol/L Potassium 4.1 (3.4-5.1) mmol/L Chloride 105 (98-107) mmol/L Carbon Dioxide 24 (22-32) mmol/L BUN 9 (9-20) mg/dL Creatinine 0.99 (0.66-1.25) mg/dL Estimated GFR > 60 (>60) mL/min BUN/Creatinine Ratio 9.1 (6-22) Glucose 97 (70-99) mg/dL Calcium 9.0 (8.4-10.2) mg/dL Total Bilirubin 0.8 (0.2-1.3) mg/dL AST 35 (17-59) IU/L ALT 42 (<50) IU/L Alkaline Phosphatase 62 (38-126) U/L Total Protein 8.0 (6.3-8.2) g/dL Albumin 4.7 (3.5-5.0) g/dL Globulin 3.3 (1.7-4.1) g/dL Albumin/Globulin Ratio 1.4 (1.0-2.8) Blood Type O Positive Antibody Screen Negative Urine Dip Bedside Urine Glucose Negative Bedside Urine Bilirubin - Negative Bedside Urine Ketone - Negative Urine Specific [place] 1.005 Bedside Urine Occult Blood - Negative Bedside Urine pH 7.5 Bedside Urine Protein - Negative Bedside Urine Urobilinogen - Negative Bedside Urine Nitrite - Negative Bedside Urine Leukocytes - Negative Esterase Imaging Data CT scan - abdomen/pelvis: My Impression: No intra-abdominal free fluid Radiologist's Impression: No bowel obstruction or abnormal bowel wall thickening. Postsurgical changes in sigmoid colon. Colonic diverticulosis without CT evidence of acute diverticulitis. No abscess collection. No free fluid or free air. 2. Other chronic changes as above, not significantly changed from prior study. ECG Data Interpretation: On evaluation of patient's EKG is normal sinus rhythm with a rate of 87 AK interval is 136, QTC is 108, QTC less than 500 found to be 440 and no signs of significant ST elevation, depression or other abnormalities meeting STEMI criteria call MDM Narrative Medical decision making narrative: INITIAL EVALUATION AND PLAN: - Differential diagnosis includes recurrent diverticulitis or other gastrointestinal bleeding sources. - Basic lab work ordered: CBC, CMP to assess for infection and anemia. - CT scan to evaluate for diverticulitis recurrence or other abdominal pathology. - Hemocult test faintly positive. - Rectal exam performed to evaluate for hemorrhoids or thrombosed hemorrhoids. No signs of hemorrhoids or thrombosed hemorrhoids - Decision regarding inpatient versus outpatient management pending lab results, imaging findings, and clinical status. - Follow-up with GI specialist to be determined based on findings. Differential diagnosis includes but is not limited to: recurrent diverticulitis, bowel obstruction, gastrointestinal bleeding, hemorrhoids, or other abdominal pathology. Patient's CT was reviewed as documented above shows no signs of significant diverticulitis abscess or bowel obstruction, no signs of significant bleeding at this time patient's repeat and serial abdominal exams do not show significant pain. Patient is guaiac was mildly positive however there was no bright red blood per rectum. Patient's hemoglobin blood pressure and heart rate have all been reassuring while in the emergency department. The case was discussed with Dr. Beltran of the surgical team about hospital admission versus outpatient follow up, he states that given patient has reassuring vital signs, hemoglobin serial abdominal exams in no recurrent bloody bowel movements while in the emergency department would be a good patient for outpatient follow up. I discussed with the patient the risks and benefits of outpatient versus inpatient management and is agreeable to outpatient therapy, referral has been made for him to see Dr. Beltran on Monday, we discussed specific return precautions including worsening abdominal pain bleeding or symptoms of syncope. Discharge Plan Departure Patient Disposition: Home Clinical Impression: Diverticulosis, Acute lower gastrointestinal bleeding Instructions: Gastrointestinal Bleeding, DI for Colitis Activity Restrictions/Additional Instructions: You were seen in the emergency department today for lower GI bleeding unfortunately had reassuring blood work, vitals and CT scan that showed no signs of bowel obstruction active bleeding or infectious complications. I discussed her case with Dr. Beltran of the General surgery team. Please see contact information below in order to call and make an appointment if you are not reached out to buy Monday morning. If you have worsening GI bleeding worsening abdominal pain feelings of feeling like passing out please return to the emergency department and do not wait for your appointment Gerald Beltran MD [address] [place] [address], [address] [facility] [address] Phone Email Fax Direct Address Prescriptions: No Action pantoprazole 40 mg tablet,delayed release (DR/EC) 40 mg PO DAILY celecoxib 200 mg capsule 200 mg PO DAILY methocarbamol 500 mg tablet 500 mg PO PRN PRN (Reason: Spasms) Patient Comments: [NO ORIGINAL SIG] testosterone cypionate 200 mg/mL oil IM WEEKLY pregabalin 75 mg capsule 75 mg PO DAILY hydromorphone [Dilaudid] 2 mg tablet 2 - 4 mg PO Q6H PRN (Reason: pain) 7 Days Qty: 30 0RF multivitamin Tablet 1 tab PO DAILY lidocaine 5 % Adhesive Patch,Medicated 1 patch topical DAILY 14 Days Qty: 14 3RF naloxone [Narcan] 4 mg/actuation spray,non-aerosol 4 mg intranasal Q3M PRN (Reason: opioid overdose) Qty: 2 0RF Rx Instructions: spray 1 dose into ONE nostril; alternate nostrils w each dose until help arrives Referrals: Michelle Rayo MD [Primary Care Provider] - Gerald Beltran MD [Physician] - (Patient seen in the ED with lower GI bleeding, case discussed in ED and agreeable to outpatient follow up on Monday. Please call the appointment for appointment time and need for GI prep if indicated) Stand Alone Forms: Patient Portal/API/Survey
[2024-05-29 12:41] LABS: Prothrombin Time 11.6 SECONDS (9.4-12.5)
[2024-05-29 12:44] LABS: Alanine Aminotransferase 42 IU/L (<50); Albumin 4.7 g/dL (3.5-5.0); Albumin Globulin Ratio 1.4 (1.0-2.8); Alkaline Phosphatase 62 U/L (38-126); Aspartate Aminotransferase 35 IU/L (17-59); BUN Creatinine Ratio 9.1 (6-22); Bilirubin Total 0.8 mg/dL (0.2-1.3); Blood Urea Nitrogen 9 mg/dL (9-20); Carbon Dioxide 24 mmol/L (22-32); Chloride 105 mmol/L (98-107); Estimated Glomerular Filt Rate > 60 mL/min (>60); Globulin 3.3 g/dL (1.7-4.1); Glucose 97 mg/dL (70-99); HEMOLYSIS < 15 (0-50); PTT Partial Thromboplastin Tim 35 SECONDS (25.1-36.5); Potassium 4.1 mmol/L (3.4-5.1); Sodium 141 mmol/L (137-145)
--- NOTE | 2024-05-29 13:10 | PC.NURSE ---
Pt requesting something for pain. MD notified. New orders received.
[2024-05-29] MEDS: MORPHINE 2 MG/ML INJ IV (13:57)
== END 2024-05-29 14:53 | disposition home or self-care (01) ==
PROVIDERS: Emergency Provider Emergency Medicine
DX: K57.10 Diverticulosis of small intestine without perforation or abscess without bleeding (principal)
CPT/HCPCS: 36415; 74177; 80053; 81003; 85025; 85610; 85730; 86850; 86900; 86901; 93005; 93010; 96374; 96375; 99284; J2270; J2470; Q9967

== ENCOUNTER → 2024-06-06 06:55 | Outpatient (CLI) | payer OTHER, SELFPAY ==
[2024-03-01 15:41] VITALS: BMI 37.3
--- NOTE | 2024-06-06 06:57 | DI.ECHO.S_ITS ---
[facility] +---------+ Hospital : : [address] : : [place] : : [id number] : : Phone: [phone] Echocardiogram Report + + :Name: FAUZIA NEWTON Study Date: 06/06/2024 Height: 74 in : :Hospital ReadingLocation: Weight: 290 lb : : Gender: Male BSA: 2.5 m2 : :: 1985 Age: 39 yrs BP: 136/88 mmHg: :Reason For Study: AORTIC VALVE : :Ordering Physician: ISABEL, : :WARNER HOOK Performed By: Steven Webb : :Referring: WARNER HALL MD : + + Interpretation Summary 1) Normal left ventricular thickness, size, wall motion, and systolic function (EF 55-60%). 2) Normal right ventricular size and function. 3) No significant valvular abnormalities. 4) No prior Echo available for comparison. Procedure: A two-dimensional transthoracic echocardiogram with color flow and Doppler was performed. The study quality was technically adequate. There is no prior echocardiogram noted for this patient. The patient was in normal sinus rhythm during the exam. Left Ventricle: The left ventricle is normal in size and wall thickness. Left ventricular systolic function is normal. The ejection fraction is estimated to be 55-60%. There are no focal wall motion abnormalities. Diastolic parameters suggest probable normal left ventricular diastolic function and normal filling pressures. Right Ventricle: The right ventricle is normal in size and function. Atria: Both atria are normal in size. There is no Doppler evidence for an interatrial shunt. Mitral Valve: The mitral valve leaflets appear to open well. There is no mitral valve stenosis. There is trace mitral regurgitation. Aortic Valve: The aortic valve opens well. The aortic valve is grossly normal. There is no aortic valve stenosis. No aortic regurgitation is present. Tricuspid Valve: The tricuspid valve leaflets are thin and pliable. There is a trace or physiologic amount of tricuspid regurgitation. Pulmonary artery pressures cannot be estimated because of the lack of a measurable TR jet velocity but the IVC suggests a CVP of around 3 mmHg. Pulmonic Valve: The pulmonic valve is not well seen, but is grossly normal. There is a trace or physiologic amount of pulmonic regurgitation. Great Vessels: The aortic root is not well visualized. The ascending aorta is normal in size. The aortic arch is normal in size. The pulmonary is not well visualized. The IVC is of normal diameter and collapses greater than 50% with a sniff. This suggests a low right atrial pressure of 3 mm Hg. Pericardium/ Pleura There is no pericardial effusion. MMode/2D Measurements & Calculations LVIDd: 5.2 cm LVOT diam: 2.5 cm LVIDs: 3.1 cm Ao root diam: 3.4 cm FS: 39.0 % asc Aorta Diam: 3.1 cm EPSS: 0.62 cm Ao Arch Diam (Prox Trans): 3.0 cm IVSd: 0.97 cm LVPWd: 0.99 cm LV babcock. diameter/BSA (cm/m^2): 2.0 LV sys. diameter/BSA (cm/m^2): 1.2 LA A2 area: 18.6 cm2 RA long axis: 5.1 cm LA A4 area: 20.0 cm2 RA area: 18.5 cm2 LA length (vol): 5.8 cm RA vol: 56.9 ml LA vol: 54.2 ml RA : 22.3 ml/m2 LA vol index: 21.3 ml/m2 IVC diam: 1.5 cm RVD1 (basal): 4.1 cm RVD2 (mid): 3.6 cm TAPSE: 2.5 cm Doppler Measurements & Calculations Ao V2 max: 127.5 cm/sec LVOT Max Yinka: 94.6 cm/sec Ao V2 mean: 85.4 cm/sec LV V1 max P.6 mmHg Ao max P.5 mmHg LV V1 VTI: 20.8 cm Ao mean P.5 mmHg BRENDA(I,D): 3.9 cm2 Ao V2 VTI: 25.0 cm BRENDA(V,D): 3.5 cm2 sev ratio: 0.83 BRENDA indexed to BSA (cm^2/m^2): 1.5 MV E max yinka: 64.4 cm/sec PA V2 max: 102.9 cm/sec MV A max yinka: 60.4 cm/sec PA V2 mean: 72.7 cm/sec MV E/A: 1.1 PA mean P.4 mmHg Med Peak E' Yinka: 10.3 cm/sec PA pr(Accel): 31.0 mmHg E/E' med: 6.3 Lat Peak E' Yinka: 10.3 cm/sec E/E' lat: 6.2 E/e' average: 6.3 MV dec time: 0.25 sec SV(LVOT): 98.6 ml Reading Physician:11:00 AM
== END ==
DX: Q23.81 Bicuspid aortic valve (principal)
CPT/HCPCS: 93306

== ENCOUNTER 2025-01-21 07:33 | Emergency (ER) | payer OTHER, SELFPAY ==
[2024-03-01 15:41] VITALS: BMI 37.3
[2025-01-21 07:41] VITALS: BP 128/88; PULSE 108; RESP 12; TEMP 36.6; O2SAT 99; BMI 31.8
--- NOTE | 2025-01-21 07:51 | ED.ABDPAIN ---
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 Complains of abdominal pain that started this morning. No nausea or vomiting. Has had diarrhea. He has had bright red blood per rectum for the past 1 month. Patient has long history of diverticulosis diverticulitis with perforation and bowel resection reanastomosis 1 year ago done here. Has had multiple CAT scan imaging in the past 1 year. Denies any back pain no urinary complaints. No chest pain or shortness of breath. Related Data Home Medications ?Medication ?Instructions ?Recorded ?Confirmed pantoprazole 40 mg tablet,delayed 40 mg PO DAILY 11/26/23 06/03/24 release multivitamin 1 tab PO DAILY 01/23/24 06/03/24 celecoxib 200 mg capsule 200 mg PO DAILY 03/01/24 06/03/24 methocarbamol 500 mg tablet 500 mg PO PRN PRN Spasms 03/01/24 06/03/24 pregabalin 75 mg capsule 75 mg PO DAILY 03/01/24 06/03/24 testosterone cypionate 200 mg/mL IM WEEKLY 03/01/24 06/03/24 intramuscular oil Previous Rx's ?Medication ?Instructions ?Recorded lidocaine 5 % topical patch 1 patch topical DAILY 14 days #14 01/29/24 ea naloxone 4 mg/actuation nasal 4 mg intranasal Q3M PRN opioid 01/29/24 spray (Narcan) overdose #2 ea hydromorphone 2 mg tablet 2 - 4 mg (1 - 2 x 2 mg) PO Q6H PRN 03/05/24 (Dilaudid) pain 7 days #30 tabs Allergies Allergy/AdvReac Type Severity Reaction Status Date / Time bee venom protein (honey Allergy Unknown Anaphylaxis Verified 10/08/24 10:19 bee) (BEE VENOM PROTEIN as a child (HONEY BEE)) Review of Systems Review of Systems Narrative: GENERAL: Negative chills, fatigue, malaise, fever, sweats. HEENT: Negative sinus pain, ear pain, sore throat RESPIRATORY: Negative dyspnea, cough CARDIOVASCULAR: Negative chest pain, palpitations GASTROINTESTINAL: Negative vomiting, nausea, positive abdominal pain : Negative dysuria, frequency, hematuria MUSCULOSKELETAL: Negative muscle or bony pain SKIN: Negative rash, skin lesions NEUROLOGIC: Negative weakness, numbness ROS Unobtainable: All systems reviewed & are unremarkable except as noted in HPI and below Patient History Medical History History of COVID-19 (~2020) Diverticulitis Vasovagal syncope Depressive disorder Prostatitis CHRISTINA (obstructive sleep apnea) Surgical History H/O removal of cyst H/O vasectomy History of lumbar spinal fusion (2019) History of lumbar spinal fusion (2017) Hx of colonoscopy (11/27/23) Hx of cholecystectomy (2019) Social History household members: spouse and children alcohol intake: former alcohol intake frequency: a few times a week Exam Narrative Exam Narrative: GENERAL: in no distress, not toxic not dyspneic HEAD: Normocephalic. EYES: Pupils equal round ENT: Mucous membranes moist. NECK: Trachea midline. CARDIOVASCULAR: Regular rate and rhythm RESPIRATORY: Clear to auscultation. Breath sounds equal bilaterally. No wheezes, rales, or rhonchi. GASTROINTESTINAL: Abdomen soft, there is mild diffuse periumbilical suprapubic tenderness. No peritoneal signs no guarding or rebound. Bowel sounds are present. No CVA tenderness. BACK: No flank tenderness. EXTREMITIES: No gross deformities. NEURO: AOx4. Clear speech SKIN: Warm and dry PSYCH: Not anxious, is cooperative Initial Vital Signs Initial Vital Signs: Vital Signs Temperature 97.9 F 01/21/25 07:41 Pulse Rate 108 H 01/21/25 07:41 Respiratory Rate 12 01/21/25 07:41 Blood Pressure 128/88 01/21/25 07:41 Pulse Oximetry 99 01/21/25 07:41 Oxygen Delivery Method Room Air 01/21/25 07:41 Course Orders Ordered: ED Orders 01/21/25 07:50 CT abdomen pelvis wo con Stat 01/21/25 08:08 Complete Blood Count AUTO DIFF Stat Comprehensive Metabolic Panel Stat Lipase Stat Discontinued Medications Hydromorphone HCl (Hydromorphone 1 Mg/Ml Syringe) 1 mg IV NOW ONE Stop: 01/21/25 08:36 Last Admin: 01/21/25 09:15 Dose: 1 mg Documented By: SRAVANTHI Sodium Chloride (Normal Saline 0.9%) 1,000 mls @ 1,000 mls/hr IV BOLUS ONE Stop: 01/21/25 08:49 Last Infusion: 01/21/25 10:19 Dose: Infused Documented By: Admin: 01/21/25 08:27 Dose: 1,000 mls/hr Documented By: SRAVANTHI Morphine Sulfate (Morphine 4 Mg/Ml Inj) 4 mg IV Q2HR PRN PRN Reason: pain Last Admin: 01/21/25 08:28 Dose: 4 mg Documented By: SRAVANTHI Ondansetron HCl (Ondansetron 4 Mg/2 Ml Inj) 4 mg IV NOW PRN PRN Reason: Nausea And Vomiting Last Admin: 01/21/25 08:28 Dose: 4 mg Documented By: SRAVANTHI Ondansetron HCl (Ondansetron 4 Mg Odt) 4 mg PO NOW PRN PRN Reason: Nausea And Vomiting Vital Signs Vital signs: Vital Signs - 8 hr 01/21/25 07:41 01/21/25 09:24 01/21/25 10:21 Temperature 97.9 F Pulse Rate 108 H 85 89 Respiratory Rate 12 16 16 Blood Pressure 128/88 134/84 127/81 Pulse Oximetry 99 98 98 Oxygen Delivery Method Room Air Room Air Room Air MDM - Abdominal Pain Lab Data 01/21/25 08:08 01/21/25 08:08 Labs: Lab Results 01/21/25 Range/Units 08:08 WBC 6.6 (4.5-11.0) X10^3/uL RBC 5.28 (4.5-5.9) X10^6/uL Hgb 14.9 (13.5-17.5) g/dL Hct 43.0 (41-53) % MCV 81.5 (80-100) fL MCH 28.2 (26-34) PG MCHC 34.6 (30-36) % RDW 14.5 (11.6-14.8) % Plt Count 199 (150-400) X10^3/uL Neut % (Auto) 63.8 (50-75) % Lymph % (Auto) 27.0 (25-40) % [place] % (Auto) 7.1 (3-14) % Eos % (Auto) 1.6 L (2-4) % Baso % (Auto) 0.5 (0-2) % Neut # (Auto) 4200 (2887-4552) /uL Lymph # (Auto) 1800 (9050-3224) /uL [place] # (Auto) 500 (0-900) /uL Eos # (Auto) 100 (0-450) /uL Baso # (Auto) 0 (0-100) /uL Sodium 142 (137-145) mmol/L Potassium 3.8 (3.4-5.1) mmol/L Chloride 109 H (98-107) mmol/L Carbon Dioxide 23 (22-32) mmol/L BUN 7 L (9-20) mg/dL Creatinine 1.00 (0.66-1.25) mg/dL Estimated GFR > 60 (>60) mL/min BUN/Creatinine Ratio 7.0 (6-22) Glucose 93 (70-99) mg/dL Calcium 8.7 (8.4-10.2) mg/dL Total Bilirubin 0.7 (0.2-1.3) mg/dL AST 22 (17-59) IU/L ALT 22 (<50) IU/L Alkaline Phosphatase 62 (38-126) U/L Total Protein 7.5 (6.3-8.2) g/dL Albumin 4.4 (3.5-5.0) g/dL Globulin 3.1 (1.7-4.1) g/dL Albumin/Globulin Ratio 1.4 (1.0-2.8) Lipase 91 (23-300) U/L Point of care testing: Urine Dip Bedside Urine Glucose Negative Bedside Urine Bilirubin - Negative Bedside Urine Ketone - Negative Urine Specific [place] 1.010 Bedside Urine Occult Blood - Negative Bedside Urine pH 6.0 Bedside Urine Protein +/- 15 Bedside Urine Urobilinogen - Negative Bedside Urine Nitrite - Negative Bedside Urine Leukocytes - Negative Esterase Imaging Data CT scan - abdomen/pelvis: Radiologist's Impression: [address] [address] [address] Scan Report Signed Patient: Bebeto Givens MR#: [id number] : 1985 Acct:[id number] Age/Sex: 39 / M Date of Service: 01/21/25 Loc: ED Accession Number: [id number] Procedure: CT abdomen pelvis wo con Ordering Provider: Efraín Sams MD PROCEDURE: CT ABDOMEN PELVIS WO CON INDICATIONS: Abdominal pain TECHNIQUE: CT of the abdomen and pelvis was obtained without intravenous contrast. Coronal and sagittal reformats were performed. For radiation dose reduction, the following was used: automated exposure control, adjustment of mA and/or kV according to patient size. COMPARISON: [facility], CT, CT ABDOMEN PELVIS W CON, 10/08/2024, 10:51. FINDINGS: Image quality: Diagnostic. Lower Chest: No significant findings. ABDOMEN: Liver: No contour-deforming mass. Gallbladder: Absent Biliary ducts: No biliary dilation. Pancreas: No ductal dilation. Spleen: Size is within normal limits. Adrenal Glands: No adrenal nodules. Kidneys and Ureters: No hydronephrosis. No contour-deforming mass. Stomach and Bowel: Normal colonic caliber, without significant wall thickening. Remote sigmoidectomy. Mild left colonic diverticulosis. Normal appendix. Peritoneum: No abnormal intraperitoneal fluid. No free air. Ventral Wall: No significant hernia. Abdominal Nodes: No retroperitoneal or mesenteric adenopathy by size criteria. Vessels: Aorta and inferior vena cava are normal in size. PELVIS: Pelvic Organs: Unremarkable. Bladder: Unremarkable. Pelvic Nodes: No enlarged lymph nodes. Miscellaneous: No inguinal hernias are seen. Bones: No aggressive osseous abnormality. Remote lumbar fusion at L4 through S1. Mild diffuse osteopenia. IMPRESSION: 1. No acute process identified. 2. Remote appendectomy and sigmoidectomy. 3. Mild diverticulosis. 4. Mild diffuse osteopenia. Dictated by: Castro Ambriz M.D. on 01/21/2025 at 8:17 Approved by: Castro Ambriz M.D. 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 Complains of abdominal pain that started this morning. No nausea or vomiting. Has had diarrhea. He has had bright red blood per rectum for the past 1 month. Patient has long history of diverticulosis diverticulitis with perforation and bowel resection reanastomosis 1 year ago done here. Has had multiple CAT scan imaging in the past 1 year. Denies any back pain no urinary complaints. No chest pain or shortness of breath. MDM After history and exam, CBC CMP lipase urinalysis normal saline morphine Zofran CT abdomen pelvis Differential considered: Includes but not limited to diverticulitis diverticulosis bowel obstruction colitis bowel perforation Medical records reviewed: Multiple CT abdomen pelvis in the past when you are done here. January 23, 2024 operative notes done here. Lab Test results independently reviewed as above. Pertinent findings: WBC 6.6 hemoglobin 14.9, sodium 142 potassium 3.8 BUN 7 creatinine 1.0 GFR greater than 60 AST 22 ALT 22 lipase 91, urinalysis negative leukocytes negative nitrite Imaging studies independently reviewed: CT abdomen pelvis no acute finding Consultations: None indicated at this time. No acute finding on results. Re-evaluations: 9:00 a.m.. Updated patient results. Exam laboratory studies imaging studies reassuring. No acute finding. Pain can sometimes due to scar tissue from surgery. 9:55 a.m.. Pain is controlled. 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 Return precautions reviewed with patient. Reviewed results with patient. He desires discharge home. No new prescriptions are indicated. Discussion: Appropriate for discharge home. Exam is reassuring. Return precautions reviewed with patient. Pain control. Work note provided. Patient has established general surgeon to follow up with. Diagnosis: Recurrent abdominal pain Discharge Plan Departure Patient Disposition: Home Clinical Impression: Abdominal pain, recurrent Instructions: DI for Abdominal Pain-Adult Activity Restrictions/Additional Instructions: No driving operating machinery today as you have been given pain medication. Work note has been provided for you. Please see your general surgeon office for re-evaluation. Return if worse if any questions or concerns Prescriptions: No Action pantoprazole 40 mg tablet,delayed release (DR/EC) 40 mg PO DAILY celecoxib 200 mg capsule 200 mg PO DAILY methocarbamol 500 mg tablet 500 mg PO PRN PRN (Reason: Spasms) Patient Comments: [NO ORIGINAL SIG] testosterone cypionate 200 mg/mL oil IM WEEKLY pregabalin 75 mg capsule 75 mg PO DAILY hydromorphone [Dilaudid] 2 mg tablet 2 - 4 mg PO Q6H PRN (Reason: pain) 7 Days Qty: 30 0RF multivitamin Tablet 1 tab PO DAILY lidocaine 5 % Adhesive Patch,Medicated 1 patch topical DAILY 14 Days Qty: 14 3RF naloxone [Narcan] 4 mg/actuation spray,non-aerosol 4 mg intranasal Q3M PRN (Reason: opioid overdose) Qty: 2 0RF Rx Instructions: spray 1 dose into ONE nostril; alternate nostrils w each dose until help arrives Referrals: Michelle Rayo MD [Primary Care Provider, Family Practice] Gerald Beltran MD [Physician, General Surgery] Stand Alone Forms: Patient Portal/API, Work Release Note
[2025-01-21 08:26] LABS: Add Manual Diff / Slide Review NO; Hematocrit 43.0 % (41-53); Hemoglobin 14.9 g/dL (13.5-17.5); Lymphocytes Absolute Auto 1800 /uL (1100-4500); Mean Corpuscular HGB Conc 34.6 % (30-36); Mean Corpuscular Hemoglobin 28.2 PG (26-34); Mean Corpuscular Volume 81.5 fL (80-100); Platelet Count 199 X10^3/uL (150-400)
[2025-01-21] MEDS: SODIUM CHLORIDE 0.9% 1,000 ML 1000 ML IV (08:27)
[2025-01-21] MEDS: MORPHINE 4 MG/ML INJ IV (08:28)
[2025-01-21] MEDS: ONDANSETRON 4 MG/2 ML INJ IV (08:28)
[2025-01-21 08:34] LABS: Alanine Aminotransferase 22 IU/L (<50); Albumin 4.4 g/dL (3.5-5.0); Albumin Globulin Ratio 1.4 (1.0-2.8); Alkaline Phosphatase 62 U/L (38-126); Blood Urea Nitrogen 7 mg/dL (9-20); Calcium 8.7 mg/dL (8.4-10.2); Carbon Dioxide 23 mmol/L (22-32); Chloride 109 mmol/L (98-107); Estimated Glomerular Filt Rate > 60 mL/min (>60); Globulin 3.1 g/dL (1.7-4.1); Glucose 93 mg/dL (70-99); HEMOLYSIS < 15 (0-50); Lipase 91 U/L (23-300); Potassium 3.8 mmol/L (3.4-5.1); Sodium 142 mmol/L (137-145); Total Protein 7.5 g/dL (6.3-8.2)
[2025-01-21 09:24] VITALS: BP 134/84; PULSE 85; RESP 16; O2SAT 98
[2025-01-21 10:21] VITALS: BP 127/81; PULSE 89; RESP 16; O2SAT 98
== END 2025-01-21 10:22 | disposition home or self-care (01) ==
PROVIDERS: Emergency Provider Emergency Medicine
DX: R10.9 Unspecified abdominal pain (principal); R19.7 Diarrhea, unspecified; K62.5 Hemorrhage of anus and rectum; Z87.19 Personal history of other diseases of the digestive system
CPT/HCPCS: 36415; 74176; 80053; 81003; 83690; 85025; 96361; 96374; 96375; 99284; J1171; J2272; J2405; J7030